=== PATIENT | female | born 1950 | race Caucasian/White ===

== ENCOUNTER 2016-08-27 11:25 | Observation (INO) ==
--- NOTE | 2016-08-27 11:56 | EKG Report ---
Please refer to the EKG image. Final interpretation is pending.
[2016-08-27 12:07] LABS: Basophils # 0.1 10*3/uL (0.0-0.2); Basophils % 0.7 % (0.0-0.8); Eosinophils # 0.2 10*3/uL (0.0-0.87); Eosinophils % 2.9 % (0.00-10.9); Hemoglobin 10.3 GM/DL (12.0-16.0); Immature Granulocytes % 0.3 %; Immature Granulocytes Absolute 0.02 #; Lymphocytes # 0.8 10*3/uL (1.4-4.0); Lymphocytes % 11.5 % (21.3-54.2); Mean Corpuscular HGB Conc 30.3 GM/DL (32-36); Mean Corpuscular Hemoglobin 23 PG (27-34); Mean Corpuscular Volume 75.9 FL (87-102); Mean Platelet Volume 9.6 FL (9.6-12.0); Monocytes # 0.7 10*3/uL (0.11-0.8); Monocytes % 9.4 % (1.7-12.7); Neutrophils # 5.2 10*3/uL (1.4-7.4); Neutrophils % 75.2 % (38.7-73.9); Platelet Count 186 T/CUMM (130-400); Red Blood Count 4.48 MC/CUMM (3.8-5.5); Red Cell Distribution Width 16.6 % (9.3-17.3); White Blood Count 6.9 T/CUMM (4-12)
[2016-08-27 12:19] LABS: PT Patient Result 10.8 SECS; Partial Thromboplastin Time 26.1 SECS (0-40)
[2016-08-27 12:27] LABS: Apearance,Urine CLEAR (Clear); Bilirubin,Urine Negative (Negative); Blood, Urine Negative (Negative); Glucose,Urine (UA) Negative (Negative); Ketones,Urine Negative (Negative); Mucus,Urine Occasional /LPF (Occasional); Nitrite,Urine Negative (Negative); Protein,Urine Negative; RBC,Urine <1 /HPF (0-4); Urine Color Straw (Yellow); Urine Specific Gravity 1.003 (1.001-1.035); Urine Urobilinogen < 2.0 EU/DL (0.2-1.0); WBC,Urine 1 /HPF (0-6)
[2016-08-27 12:31] LABS: Alanine Aminotransferase 19 U/L (13-56); Albumin 3.4 G/DL (3.4-5.0); Alkaline Phosphatase 88 U/L (45-117); Aspartate Amino Transferase 16 U/L (0-37); Bilirubin,Total < 0.39 MG/DL (0.2-1.0); Blood Urea Nitrogen 12 MG/DL (7-18); Calcium 8.7 MG/DL (8.5-10.1); Glucose 128 MG/DL (74-106); Osmolality,Calculated 274.8 MOS/KG (273-304); Sodium 137 MMOL/L (136-145); Total Protein 6.6 G/DL (6.4-8.3)
[2016-08-27 12:32] LABS: Troponin I Only 0.068 NG/ML (0.00-0.045)
--- NOTE | 2016-08-27 12:35 | CT Report ---
Referring physician: Hari Mcgowan Exam: CT brain without contrast Date: August 27, 2016 Comparison: CT brain without contrast June 07, 2016 Reason: Left arm weakness The patient is an Emergency Department patient on August 27, 2016. Technique: Axial images of the head were obtained without the use of contrast. Total DLP was 914.6 mGy*cm. Findings: There is mild generalized cerebral atrophy/volume loss and probable chronic microvascular ischemic change. This is similar to the previous study. No hydrocephalus or midline shift is present. There is no evidence of recent intracranial hemorrhage, abnormal mass effect or an acute infarction. No acute osseous process is seen. The mastoid air cells and visualized paranasal sinuses are clear. Impression: 1. No acute intracranial process is identified. 2. Chronic findings, similar to before. The CT exam was performed using one or more of the following dose reduction techniques: Automated exposure control and adjustment of the mA and/or kV according to patient size. PROCEDURE INTERPRETED AT [facility] DEPARTMENT OF RADIOLOGY Final Report Signed by: Dr. Ellen Nuno
--- NOTE | 2016-08-27 12:45 | XRay Report ---
Referring Physician: Hari Mcgowan Exam: XR chest 1V portable Date: August 27, 2016 at 12:08 PM Reason: Postop cardiac procedure Comparison: Chest one view portable June 07, 2016 Findings: The cardiac silhouette is again enlarged, and the patient is status post sternotomy. Calcified plaque is noted at the thoracic aorta. There may be venous congestion, and there is minimal atelectasis within the right lower lung zone. No pneumothorax or definite pleural fluid is identified. No acute osseous process is seen. Impression: 1. Cardiomegaly. 2. Possible venous congestion and minimal atelectasis within the right lower lung zone. PROCEDURE INTERPRETED AT [facility] DEPARTMENT OF RADIOLOGY Final Report Signed by: Dr. Ellen Nuno
--- NOTE | 2016-08-27 15:46 | Emergency Department Note ---
Juan M Barajas Brooke, am scribing for, and in the presence of, Hari Mcgowan Jr., MD 11:53. Roslyn Barajas Marvin Jr., MD, personally performed the services described in this documentation, ascribed by Holly Mcgowan in my presence, and it is both accurate and complete . Arrival - Arrival Chief Complaint: Non-Specific Stated Complaint: dizzy,legs numb, had miru valve ED Nursing Triage Note: Pt c/o weakness in shannon legs since yesterday, dizziness, heaviness in left arm, palpitations, and SOB this am. Pt had a procedure in [facility] on her Mitrial Valve 3 days ago. Mode of Arrival: Wheelchair Limitations: No Limitations Source: Patient, Old Records Reviewed, RN Notes Reviewed Time Seen by Provider: 08/27/16 11:44 - History of Present Illness HPI Narrative: Patient is a 66 year old female who presents to the ED with c/o shortness of breath, dizziness, numbness, and sudden back pain. She had a Mitral Valve Surgery, three days ago, where she says they "clamped" her valve back together. The surgery was performed in [place], [place]. Patient says she woke up this morning with bilateral leg numbness. She says her left arm feels "weak." With the dizziness, Patient says she felt like she was going to pass out. Patient says she feels short of breath and sudden back pain that also started today. She says she does not have a history of back pain. Patient denies any chest pain , fever, nausea, or vomiting but has had some chills. She has PMHx of CHF,H HTN , PVD, valvular heart disease, Afib, peripheral neuropathy, asthma, bronchitis, COPD, pneumonia, GERD, anemia, degenerative disk disease, and endometriosis. Patient is currently taking Eliquis. She does not smoke cigarettes, drink alcohol, or do any drugs. Allergies/Adverse Reactions: Allergies Allergy/AdvReac Type Severity Reaction Status Date / Time No Known Allergies Allergy Verified 05/25/16 08:12 Home Medications: Home Medications Medication Instructions Recorded Confirmed Type Albuterol/Ipratropium Neb [Duoneb] 3 ml RESP TX TID 12/21/14 08/27/16 History Zolpidem Tartrate [Ambien] 10 mg PO BEDTIME 12/21/14 08/27/16 History Acetaminophen Tab [Tylenol Tab] 1,000 mg PO BEDTIME 03/31/16 08/27/16 History Gabapentin 600 mg PO BEDTIME MDD @1300 daily 03/31/16 08/27/16 History Docusate Sodium Cap [Colace Cap] 300 mg PO BEDTIME 06/08/16 08/27/16 History Furosemide Tab [Lasix Tab] 40 mg PO BID #120 tablet 06/09/16 08/27/16 Rx Apixaban [Eliquis] 2.5 mg PO BID 08/27/16 08/27/16 History Ascorbic Acid Tab [Vitamin C Tab] 500 mg PO BID 08/27/16 08/27/16 History Fluticasone/Salmeterol 250-50 1 puff INH BID 08/27/16 08/27/16 History [Advair 250-50] Hydrocodone/Acetaminophen 0.5 each PO BID 08/27/16 08/27/16 History [Hydrocodon-Acetaminophen 5-325] Magnesium 250 mg PO BID 08/27/16 08/27/16 History Potassium Chloride 16 meq PO BID 08/27/16 08/27/16 History Spironolactone 50 mg PO DAILY 08/27/16 08/27/16 History dilTIAZem HCl [Diltiazem ER (24 240 mg PO DAILY 08/27/16 08/27/16 History hr)] Review of System - Review of System 12 point system: reviewed and no additional remarkable complaints except as stated - Review of System Constitutional: Present: chills. Absent: fever Respiratory: Present: other (SOB). Absent: respiratory distress Cardiovascular: Absent: chest pain Gastrointestinal: Absent: nausea, vomiting Musculoskeletal: Present: back pain Skin: Absent: rash Neurological: Present: weakness (left arm), numbness (bilateral legs), other ( dizziness) Medical,Surgical,& Family Hx - Medical History Cardio: History of: Cardiac Dysrhythmia (a fib), CHF (diastolic, she has had normal ef), Hypertension, PVD, Valvular Heart Disease (mitram valve had procedure at [facility]), Cardiovascular Problems No history of: Pacemaker Psychological: History of: Anxiety Disorders Neurology: History of: Peripheral Neuropathy No history of: Brain Aneurysm, Cerebral Hemorrhage, Cerebrovascular Accident , Cerebral Palsy, Dementia, Migraine, Multiple Sclerosis, Parkinson's Disease, Seizures, TIA, Vertigo, Neurologocal Cancer HEENT: History of: Eye Problem (blurry, out of focus pt states) No history of: Dental Problems Endocrine: No history of: Diabetes Mellitus (IDDM), Diabetes Mellitus (NIDDM) Respiratory: History of: Asthma, Bronchitis, COPD, Pneumonia, Respiratory Problems No history of: Obstructive Sleep Apnea, Pulmonary Embolism, Pulmonary Hypertension Gastrointestinal: History of: GERD Musculoskeletal: History of: Back/Neck Problems, Degenerative Disk Disease, Musculoskeletal Problems (peripheal neuropathy) No history of: Amputation Hematology: History of: Anemia No history of: Blood Transfusion Reaction Reproductive: History of: Abnormal Pap Smear, Endometriosis Other: No history of: Anesthesia Reactions, Anaphylaxis, Miscellaneous Medical Problems (Open heart surgery as a child) - Surgical History Cardiac Surgeries: Sugical HX of: Cardiac Catheterization (May 25), Cardiac Surgery ("3 holes in heart" repaired during childhood) Thoracic Surgeries: Surgical HX of;: Lobectomy Patient denies;: Organ Transplant Neurologic Surgeries: Patient denies: Brain Aneurysm, Cerebral Hemorrhage, Neurologic Surgery Abdominal Surgeries: Surgical HX of: Abdominal Surgery, Cholecystectomy, Hernia Repair Reproductive Surgeries: Surgical HX of;: Hysterectomy Patient denies;: Breast Surgery, Genitourinary Surgery, Gynecologic Surgery Orthopedic Surgeries: Patient denies;: Implanted Devices - Family History Family History: Reports;: Family Cancer (? neice), Family Hypertension (? mother ) - Social History Smoking Status: Former smoker Exam Physical Examination: General: Well-developed well-nourished, no apparent distress. Head: Normocephalic, atraumatic. Eyes: PERRLA, EOMI. Nose: No obvious acute deformities or discharge. Mouth: No obvious acute injury. Neck: Full range of motion without obvious pain. No midline tender to palpation. Lymphatic: no significant lymphadenopathy noted. Lungs: Clear to auscultation bilaterally, normal and equal air movement bilaterally, no obvious rales or wheezing. Heart: regular rate and rhythm, no obvious mummers. Abdomen: Soft nontender, nondistended, normal active bowel sounds. Skin: Fairly extensive bruising in her right femoral artery area. I.e. right Groin, no signs of infection, no severe swelling, looks like normal postop Musculoskeletal: No gross deformities. Neurological: No focal findings, cranial nerves II through XII grossly normal. Psychiatric: Anxious : Deferred Vital Signs: Vital Signs Temperature 98.3 F 08/27/16 11:33 Pulse Rate 112 H 08/27/16 15:23 Respiratory Rate 18 08/27/16 15:23 Blood Pressure 107/57 08/27/16 15:23 O2 Sat by Pulse Oximetry 99 08/27/16 15:23 Course Course Narrative: Differential diagnosis, dizziness, paresthesias in both legs, atrial fibrillation, ACS, - Reevaluation(s) Reevaluation #1: I discussed with the patient her atrial fibrillation with mild RVR. She says her heart rate usually runs about 115-120. I also told her better troponin being slightly elevated. She does not want to be admitted to the hospital so we will do a 3 hour repeat troponin and make determination from that. She also has a mild hyperglycemia. She is asymptomatic at this time. Feels much better and is not dizzy. This elevated troponin may be her baseline or may actually be coming down from the recent procedure she had on her mitral valve in [place]. Time: 13:07 Reevaluation #2: Troponin is gone up slightly. I called Dr. De Luna and he accepts admission for this patient. Time: 15:44 Results - Labs CBC & BMP: 08/27/16 11:59 08/27/16 11:59 Lab Results: I have reviewed the patients labs Labs: Laboratory Tests 08/27/16 08/27/16 08/27/16 11:59 11:59 11:59 WBC 6.9 RBC 4.48 Hgb 10.3 L Hct 34.0 L MCV 75.9 L MCH 23 L MCHC 30.3 L RDW 16.6 Plt Count 186 MPV 9.6 Neut % (Auto) 75.2 H Lymph % (Auto) 11.5 L Lamb % (Auto) 9.4 Eos % (Auto) 2.9 Baso % (Auto) 0.7 Neut # (Auto) 5.2 Lymph # (Auto) 0.8 L Lamb # (Auto) 0.7 Eos # (Auto) 0.2 Baso # (Auto) 0.1 Immature Gran % 0.3 Nucleated RBC % 0.0 Immature Gran # 0.02 Nucleated RBCs # 0.00 INR 1.0 PT Patient/Control Mix 10.8 Circ Anticoag PTT 26.1 D Sodium Potassium Chloride Carbon Dioxide Anion Gap BUN Creatinine GFR Calculation BUN/Creatinine Ratio Glucose Calculated Osmolality Calcium Total Bilirubin AST ALT Alkaline Phosphatase Troponin I Total Protein Albumin Globulin Albumin/Globulin Ratio Urine Color Straw Urine Appearance Clear Urine pH 5.0 Ur Specific [place] 1.003 Urine Protein Negative Urine Glucose (UA) Negative Urine Ketones Negative Urine Blood Negative Urine Nitrate Negative Urine Bilirubin Negative Urine Urobilinogen < 2.0 H Urine Leukocytes Negative Urine RBC <1 Urine WBC 1 Urine Mucus Occasional Ur Culture Indicated? Not indicated 08/27/16 11:59 WBC RBC Hgb Hct MCV MCH MCHC RDW Plt Count MPV Neut % (Auto) Lymph % (Auto) Lamb % (Auto) Eos % (Auto) Baso % (Auto) Neut # (Auto) Lymph # (Auto) Lamb # (Auto) Eos # (Auto) Baso # (Auto) Immature Gran % Nucleated RBC % Immature Gran # Nucleated RBCs # INR PT Patient/Control Mix Circ Anticoag PTT Sodium 137 Potassium 4.0 Chloride 101 Carbon Dioxide 29 Anion Gap 11.0 BUN 12 Creatinine 0.60 GFR Calculation 94 BUN/Creatinine Ratio 20.00 Glucose 128 H Calculated Osmolality 274.8 Calcium 8.7 Total Bilirubin < 0.39 AST 16 ALT 19 Alkaline Phosphatase 88 Troponin I 0.068 H Total Protein 6.6 Albumin 3.4 Globulin 3.2 Albumin/Globulin Ratio 1.0 L Urine Color Urine Appearance Urine pH Ur Specific [place] Urine Protein Urine Glucose (UA) Urine Ketones Urine Blood Urine Nitrate Urine Bilirubin Urine Urobilinogen Urine Leukocytes Urine RBC Urine WBC Urine Mucus Ur Culture Indicated? Laboratory Tests 08/27/16 14:50 Troponin I 0.081 H - EKG EKG results: interpreted by [facility] (Heart rate 108. There are complex QRS complexes without obvious acute ST changes. Tachycardia. No obvious P waves, interpretation atrial fibrillation with RVR, otherwise nonspecific EKG findings. ) - Diagnostic Findings Procedure: Chest x-ray: report reviewed by me, image reviewed by me (1. Cardiomegaly. 2. Possible venous congestion and minimal atelectasis with the right lower lung zone.), CT: report reviewed by me, image reviewed by me (CT head/brain wo con: 1. No acute intracranial process is identified. 2. Chronic findings, similar to before.) Disposition Clinical Impression: Non-ST elevation ME (NSTEMI), Dizziness, Atrial fibrillation, Postop mitral valve repair Case discussed with: patient Disposition: Still a Patient Time of Disposition: 15:45
[2016-08-27] MEDS ORDERED: DEXTROSE 5% NACL 0.45% 1,000 ML IV SCH (17:14)
[2016-08-27] MEDS ORDERED: ONDANSETRON 4 MG/2 ML VIAL IV PRN (17:14)
[2016-08-27] MEDS ORDERED: ACETAMINOPHEN 325 MG TABLET PO PRN (17:14)
[2016-08-28] MEDS: ALBUTEROL/IPRATROPIUM 3 ML NEB RESP TX SCH ×2 (07:17→12:28)
[2016-08-28] MEDS ORDERED: SODIUM CHLORIDE 0.45% 1,000 ML IV SCH (08:00)
--- NOTE | 2016-08-28 08:04 | Cardiology History & Physical ---
<Carolee Scott E - Last Filed: 08/28/16 08:02> Assessment and Plan - Time spent with patient Time spent with patient: Greater than 30 minutes (1) Mitral regurgitation Status: Chronic Assessment and plan: See plan of care listed below Current Visit: Yes (2) Atrial fibrillation Status: Chronic Assessment and plan: See plan of care listed below Current Visit: Yes Qualifiers: Atrial fibrillation type: paroxysmal Qualified Code(s): I48.0 - Paroxysmal atrial fibrillation (3) Dizziness Status: Acute Assessment and plan: See plan of care listed below Current Visit: Yes (4) Anemia Status: Acute Current Visit: No (5) Hypotension Status: Acute Assessment and plan: See plan of care listed below Current Visit: No (6) On anticoagulant therapy Status: Chronic Assessment and plan: See plan of care listed below Current Visit: No History of Present Illness Chief complaint: dizziness, weakness S/P mitral valve clip History of present illness: 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 Arce, 66WF, routinely followed by Dr. De Luna. History of CAD, moderate to severe mitral regurgitation, SVT/PAF and chronic anticoagulation. History of severe mitral regurgitation S/P mitral clip at [facility] in [place], [place] approximately [address] Cyr. She tolerated the procedure well and has been recuperating at home. Yesterday, she became dizzy and weak when standing up. She felt as if she should be evaluated in the emergency department and has been housed in our telemetry unit overnight. She is also been experiencing bilateral leg numbness and lower back pain but this is improved overnight. In general, she is feeling much better today and would like to go home at some point. On arrival, patient was hypotensive with a systolic blood pressure in the 90s. She was also noted to be in atrial fibrillation with rapid ventricular response on admission. (PAF for which she takes Eliqusi for stroke prevention ). Heart rate has improved since admission. There was no significant orthostasis noted by vital signs however she was symptomatic with these lower blood pressures. She felt as if she was overloaded as she had gained 3-5 pounds over the past several days. She felt full across the stomach. This too has improved. She is chronically anemic however labs are improved since past discharge. Cardiac biomarkers are minimally elevated but flat. Last cardiac catheterization revealed no obstructive coronary artery disease (see below). At this point, I am going to gently hydrate her, hold her blood pressure medication this morning as well as spironolactone and Lasix. Add labs for this morning including a proBNP. Hopefully, we can discharge her home this afternoon. Although the patient feels better I do think she is symptomatic from her lower blood pressures, higher heart rates and possible fluid volume loss rather than overload. She is agreeable for gentle hydration and will reevaluate early afternoon for possible discharge. We will get her an appointment to see Dr. De Luna next week. Last cardiac catheterization May 25, 2016 reveals the following: no significant obstructive coronary artery disease, 3-4+ MR. Past medical history includes the following: Multiple medical problems including COPD, CAD, moderate to severe MR prior to mitral clip, SVT/PAF and chronic anticoagulation. 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 This included "3 holes in her heart". She underwent SVT ablation many years ago and this has been generally well controlled. With her COPD, it is believed she is prone to tachycardia. ASSESSMENT/PLAN: 1. DIZZINESS, HYPOTENSION - suspect related to atrial fib with RVR. May be slightly volume depleted and we will initiate low rate replacement with plans for discharge this afternoon is possible. 2. S/P MITRAL CLIP FOR SEVERE MR - doing well. 3. ELEVATED TROPONIN - flat and not unexpected post mitral valve clip. This is NOT CT. 4. ATRIAL FIBRILLATION WITH RVR - resolved. Adding magnesium to labs. 5. ANEMIA - stable, actually improved. Home Medications Medication Instructions Recorded Confirmed Type Albuterol/Ipratropium Neb [Duoneb] 3 ml RESP TX TID 12/21/14 08/27/16 History Zolpidem Tartrate [Ambien] 10 mg PO BEDTIME 12/21/14 08/27/16 History Acetaminophen Tab [Tylenol Tab] 1,000 mg PO BEDTIME 03/31/16 08/27/16 History Gabapentin 600 mg PO BEDTIME MDD @1300 daily 03/31/16 08/27/16 History Docusate Sodium Cap [Colace Cap] 300 mg PO BEDTIME 06/08/16 08/27/16 History Apixaban [Eliquis] 2.5 mg PO BID 08/27/16 08/27/16 History Ascorbic Acid Tab [Vitamin C Tab] 500 mg PO BID 08/27/16 08/27/16 History Fluticasone/Salmeterol 250-50 1 puff INH BID 08/27/16 08/27/16 History [Advair 250-50] Hydrocodone/Acetaminophen 0.5 each PO BID 08/27/16 08/27/16 History [Hydrocodon-Acetaminophen 5-325] Magnesium 250 mg PO BID 08/27/16 08/27/16 History Potassium Chloride 16 meq PO BID 08/27/16 08/27/16 History Spironolactone 50 mg PO DAILY 08/27/16 08/27/16 History dilTIAZem HCl [Diltiazem ER (24 240 mg PO DAILY 08/27/16 08/27/16 History hr)] Furosemide Tab [Lasix Tab] 40 mg PO DAILY #30 tablet 08/28/16 Rx Allergies Allergy/AdvReac Type Severity Reaction Status Date / Time No Known Allergies Allergy Verified 05/25/16 08:12 Review of systems: REVIEW OF SYSTEMS: See my HPI - Constitutional Constitutional: Present: Fatigue. Absent: syncope, anorexia, night sweats - EENT Eyes: Absent: blurry vision, loss of vision, diplopia Ears: Absent: decreased hearing, ear pain, ear discharge - Cardiovascular Cardiovascular: Denies: chest pain with exertion, dyspnea on exertion, edema. Frequent palpitations. Absent: chest pain with deep breath, claudication, - Respiratory Respiratory: Denies JENKINS, cough. Absent: wheezing, hemoptysis, change in phlegm color - Gastrointestinal Gastrointestinal: Denies constipation. Absent: abdominal pain, hematemesis, hematochezia, melena, change in bowel habits, nausea - Genitourinary Genitourinary: Absent: difficulty urinating, dysuria, urinary hesitancy, flank pain - Musculoskeletal Musculoskeletal: Present: back pain which is now improved absent: joint swelling, muscle cramps, muscle weakness - Neurological Neurological: Present: Dizziness, lightheadedness primarily with position changes. Absent: hemiparesis - Psychiatric Psychiatric: Absent: anxiety, depression, difficulty concentrating - Endocrine Endocrine: Present: fatigue. Absent: cold intolerance, heat intolerance, polyuria, polyphagia, polydipsia - Hematologic/Lymphatic Hematologic/Lymphatic: Present: easy bruising. Absent: easy bleeding -Integumentary Integumentary: Ecchymosis right groin stable. Absent: lesions, rashes, skin breakdown Medical,Surgical,& Family Hx - Medical History Cardio: History of: Cardiac Dysrhythmia (a fib), CHF (diastolic, she has had normal ef), CAD, Hypertension, PVD, Valvular Heart Disease (mitram valve had procedure at [facility]), Cardiovascular Problems No history of: Pacemaker Psychological: History of: Anxiety Disorders Neurology: History of: Peripheral Neuropathy No history of: Brain Aneurysm, Cerebral Hemorrhage, Cerebrovascular Accident , Cerebral Palsy, Dementia, Migraine, Multiple Sclerosis, Parkinson's Disease, Seizures, TIA, Vertigo, Neurologocal Cancer HEENT: History of: Eye Problem (blurry, out of focus pt states) No history of: Dental Problems Endocrine: No history of: Diabetes Mellitus (IDDM), Diabetes Mellitus (NIDDM) Respiratory: History of: Asthma, Bronchitis, COPD, Pneumonia, Respiratory Problems No history of: Obstructive Sleep Apnea, Pulmonary Embolism, Pulmonary Hypertension Gastrointestinal: History of: GERD Musculoskeletal: History of: Back/Neck Problems, Degenerative Disk Disease, Musculoskeletal Problems (peripheal neuropathy) No history of: Amputation Hematology: History of: Anemia No history of: Blood Transfusion Reaction Reproductive: History of: Abnormal Pap Smear, Endometriosis Other: No history of: Anesthesia Reactions, Anaphylaxis, Miscellaneous Medical Problems (Open heart surgery as a child) - Surgical History Cardiac Surgeries: Sugical HX of: Cardiac Catheterization (May 25), Cardiac Surgery ("3 holes in heart" repaired during childhood) Thoracic Surgeries: Surgical HX of;: Lobectomy Patient denies;: Organ Transplant Neurologic Surgeries: Patient denies: Brain Aneurysm, Cerebral Hemorrhage, Neurologic Surgery Abdominal Surgeries: Surgical HX of: Abdominal Surgery, Cholecystectomy, Hernia Repair Reproductive Surgeries: Surgical HX of;: Hysterectomy Patient denies;: Breast Surgery, Genitourinary Surgery, Gynecologic Surgery Orthopedic Surgeries: Patient denies;: Implanted Devices - Family History Family History: Reports;: Family Cancer (? neice), Family Hypertension (? mother ) - Social History Smoking Status: Former smoker Frequency of Alcohol Use: None Type of Drug Use: None Marital Status: Lives With:: Spouse Functional capacity: independent ambulation Cardiology Physical Exam - Constitutional Vitals: Vital Signs Temp Pulse Resp BP Pulse Ox 98.1 F 70 20 94/48 98 08/28/16 04:00 08/28/16 04:00 08/28/16 04:00 08/28/16 04:00 08/28/16 04:00 Intake and Output 08/27/16 08/28/16 08/28/16 23:59 07:59 15:59 Intake Total 220 / 220 200 / 200 Output Total 425 / 425 300 / 300 Balance -205 / -205 -100 / -100 Intake: Oral 220 / 220 200 / 200 Output: Urine 425 / 425 300 / 300 Other: Voiding Method Toilet Toilet Weight 72.121 kg 70.76 kg Patient Weight 08/28/16 23:59 Weight 70.76 kg Exam: General: [Appears well with no apparent distress.] [Pleasant and cooperative. ] [Appears comfortable.] HEENT: [PERRL, normocephalic, atraumatic. Mucous membranes moist. No jaundice noted. Conjunctiva moist and clear, sclerae anicteric] Neck: No JVD/HJR, no thyromegaly or lymphadenopathy noted. No carotid bruit appreciated Cardiac: [Irregularly irregular rhythm, appropriate rate] [Ii/ HSM murmur heard best at 5 ICS left. PMI is nondisplaced. Lungs: [Clear to auscultation without accessory muscle use to assist the respiratory pattern.] Not using oxygen. Abdomen: Soft, bowel sounds normoactive. Nontender and nondistended. No abdominal bruit or thrill noted. No masses noted. Musculoskeletal: No fluid collection. Decreased range of motion is noted. Extremities: No clubbing, cyanosis noted. [ No edema noted.] Upper extremity pulses 2+. Lower extremity pulses 1+. Capillary refill less than 3 seconds. Skin: Right going reveals large ecchymotic area, no bruit. Incision healing well without dehiscence or drainage. No unusual lesions or rashes. No skin breakdown appreciated. Neuro: Awake, alert and oriented 3. Moves all extremities well without hemiparesis or paralysis. No essential tremor is appreciated. Result/EKG - Labs CBC & BMP: 08/27/16 11:59 08/27/16 11:59 Lab Results: I have reviewed the past 24 hour labs Labs: Laboratory Results - last 24 hr 08/27/16 08/27/16 08/27/16 17:28 20:13 22:27 Troponin I 0.080 H 0.075 H 0.081 H - Diagnostic Findings Procedure: Chest x-ray: report reviewed by me - EKG EKG results: interpreted by md EKG shows: sinus rhythm, atrial fibrillation (PAF) <Carlos Sánchez - Last Filed: 08/28/16 16:41> History of Present Illness Chief complaint: a cement the wrong number History of present illness: Patient personally interviewed and examined chart reviewed. Have discussed the case with Carolee Scott PRODUCTION LABORER. Agree with the assessment and evaluation. Ms. Arce is a 66 year old female who presented with increased heart rate and low blood pressure. She had episode atrial fibrillation with RVR that is resolved. Question some of this is from dehydration with her pressures being low. Her medications. She's had no other symptomatology cardiac-guy. She's had no recent change in her medications. We'll monitor her and does well discharge later today or in the morning. Cardiology Physical Exam - Constitutional Vitals: Vital Signs Temp Pulse Resp BP Pulse Ox 98.0 F 72 18 109/55 98 08/28/16 15:22 08/28/16 15:22 08/28/16 15:22 08/28/16 15:22 08/28/16 15:22 Intake and Output 08/28/16 08/28/16 08/28/16 07:59 15:59 23:59 Intake Total 200 / 200 840 / 840 Output Total 300 / 300 1400 / 1400 Balance -100 / -100 -560 / -560 Intake: Oral 200 / 200 840 / 840 Output: Urine 300 / 300 1400 / 1400 Other: Voiding Method Toilet Toilet # Bowel Movements 0 Weight 70.76 kg Patient Weight 08/28/16 23:59 Weight 70.76 kg Result/EKG - Labs CBC & BMP: 08/28/16 08:38 08/28/16 08:38 Labs: Laboratory Results - last 24 hr 08/27/16 08/27/16 08/27/16 17:28 20:13 22:27 WBC RBC Hgb Hct MCV MCH MCHC RDW Plt Count MPV Neut % (Auto) Lymph % (Auto) Haines % (Auto) Eos % (Auto) Baso % (Auto) Neut # (Auto) Lymph # (Auto) Haines # (Auto) Eos # (Auto) Baso # (Auto) Immature Gran % Nucleated RBC % Immature Gran # Nucleated RBCs # Sodium Potassium Chloride Carbon Dioxide Anion Gap BUN Creatinine GFR Calculation BUN/Creatinine Ratio Glucose Calculated Osmolality Calcium Magnesium Troponin I 0.080 H 0.075 H 0.081 H B-Natriuretic Peptide 08/28/16 08/28/16 08/28/16 08:38 08:38 08:38 WBC 6.7 RBC 4.79 Hgb 10.8 L Hct 36.9 MCV 77.0 L MCH 23 L MCHC 29.3 L RDW 17.1 Plt Count 214 MPV 9.7 Neut % (Auto) 68.4 Lymph % (Auto) 17.6 L Haines % (Auto) 9.5 Eos % (Auto) 3.6 Baso % (Auto) 0.6 Neut # (Auto) 4.6 Lymph # (Auto) 1.2 L Haines # (Auto) 0.6 Eos # (Auto) 0.2 Baso # (Auto) 0.0 Immature Gran % 0.3 Nucleated RBC % 0.0 Immature Gran # 0.02 Nucleated RBCs # 0.00 Sodium 137 Potassium 4.5 Chloride 101 Carbon Dioxide 29 Anion Gap 11.5 BUN 14 Creatinine 0.80 GFR Calculation 75 BUN/Creatinine Ratio 17.00 Glucose 179 H Calculated Osmolality 277.8 Calcium 8.5 Magnesium 2.1 Troponin I B-Natriuretic Peptide 103 H
[2016-08-28] MEDS: DILTIAZEM 30 MG TABLET PO SCH ×3 (08:53→16:50)
[2016-08-28] MEDS ORDERED: MAGNESIUM GLUCONATE 500 MG TABLET PO SCH (09:00)
[2016-08-28] MEDS ORDERED: FUROSEMIDE 20 MG TABLET PO SCH (09:00)
[2016-08-28] MEDS ORDERED: POTASSIUM CHLORIDE 8 MEQ CAPSULE PO SCH (09:00)
[2016-08-28] MEDS ORDERED: APIXABAN 2.5 MG TABLET PO SCH (09:00)
[2016-08-28] MEDS ORDERED: SPIRONOLACTONE 50 MG TABLET PO SCH (09:00)
[2016-08-28] MEDS ORDERED: ASCORBIC ACID 500 MG TABLET PO SCH (09:00)
[2016-08-28] MEDS ORDERED: FLUTICASONE/SALMETEROL 250-50 DISKUS 14 DOSE INH SCH (09:00)
[2016-08-28] MEDS ORDERED: DILTIAZEM CD 240 MG CAPSULE PO SCH (09:00)
[2016-08-28 09:18] LABS: Basophils % 0.6 % (0.0-0.8); Eosinophils # 0.2 10*3/uL (0.0-0.87); Eosinophils % 3.6 % (0.00-10.9); Hemoglobin 10.8 GM/DL (12.0-16.0); Immature Granulocytes % 0.3 %; Immature Granulocytes Absolute 0.02 #; Lymphocytes # 1.2 10*3/uL (1.4-4.0); Lymphocytes % 17.6 % (21.3-54.2); Mean Corpuscular HGB Conc 29.3 GM/DL (32-36); Mean Corpuscular Hemoglobin 23 PG (27-34); Mean Platelet Volume 9.7 FL (9.6-12.0); Monocytes # 0.6 10*3/uL (0.11-0.8); Monocytes % 9.5 % (1.7-12.7); Neutrophils # 4.6 10*3/uL (1.4-7.4); Neutrophils % 68.4 % (38.7-73.9); Platelet Count 214 T/CUMM (130-400); Red Blood Count 4.79 MC/CUMM (3.8-5.5); Red Cell Distribution Width 17.1 % (9.3-17.3); White Blood Count 6.7 T/CUMM (4-12)
[2016-08-28 09:19] LABS: Hematocrit 36.9 VOL% (35.7-47.0)
[2016-08-28 09:23] LABS: Calcium 8.5 MG/DL (8.5-10.1); Magnesium 2.1 MG/DL (1.8-2.4); Osmolality,Calculated 277.8 MOS/KG (273-304); Potassium 4.5 MMOL/L (3.5-5.1)
[2016-08-28 15:23] VITALS: BP 109/55
--- NOTE | 2016-08-28 16:23 | Discharge Summary ---
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 Arce, 66WF, routinely followed by Dr. De Luna. History of CAD, moderate to severe mitral regurgitation, SVT/PAF and chronic anticoagulation. History of severe mitral regurgitation S/P mitral clip at [facility] in [place], [place] approximately [address] Cyr. She tolerated the procedure well and has been recuperating at home. She presented to the ER of [facility] August 27, 2016 with complaints of dizziness, weakness and presyncope. She was found to be in atrial fib with RVR. This resolved without intervention. She was hypotensive as well and her Cardizem was held. She was not orthostatic but she seemed to be symptomatic. She was gentle hydrated for 8 hours and was feeling much better. She preferred discharge and she is being discharged home in stable conditions. She has follow-up appointment with Dr. De Luna soon and we will verify that her appointment is within the week. Dr. Sánchez reviewed and agreed patient stable for discharge. Will decrease dose of Lasix to 40mg orally daily as opposed to BID. Diagnosis - Discharge Diagnosis (1) Mitral regurgitation Status: Chronic (2) Atrial fibrillation Status: Chronic (3) Dizziness Status: Resolved (4) Anemia Status: Chronic (5) Hypotension Status: Resolved (6) On anticoagulant therapy Status: Chronic Specialty Discharge - Follow Up or Referrals Follow up with: Chito De Luna MD [Physician] - (1 week. Labs: BMP, Mg, CBC. EKG-WILL CALL WITH DATE AND TIME OF APPT. ) Discharge Plan - Discharge Data Disposition: Disch To Home/Self Care Condition at Discharge: Stable Discharge Diet: heart healthy Activity: resume usual activities as tolerated Hygiene: no restrictions Weight Bearing at Discharge: full weight bearing Driving: not until seen by doctor Contact your physician if you experience:: fever over 101, Difficulty voiding, Redness or swelling, Nausea/Vomiting, Shortness of breath, Bleeding, pain uncontrolled by pain medications - Discharge Medications New Furosemide Tab [Lasix Tab] 40 mg PO DAILY #30 tablet Continue Albuterol/Ipratropium Neb [Duoneb] 3 ml RESP TX TID Zolpidem Tartrate [Ambien] 10 mg PO BEDTIME Gabapentin 600 mg PO BEDTIME MDD @1300 daily Acetaminophen Tab [Tylenol Tab] 1,000 mg PO BEDTIME Docusate Sodium Cap [Colace Cap] 300 mg PO BEDTIME Hydrocodone/Acetaminophen [Hydrocodon-Acetaminophen 5-325] 0.5 each PO BID Spironolactone 50 mg PO DAILY Ascorbic Acid Tab [Vitamin C Tab] 500 mg PO BID Apixaban [Eliquis] 2.5 mg PO BID Potassium Chloride 16 meq PO BID Fluticasone/Salmeterol 250-50 [Advair 250-50] 1 puff INH BID dilTIAZem HCl [Diltiazem ER (24 hr)] 240 mg PO DAILY Magnesium 250 mg PO BID Discontinued Furosemide Tab [Lasix Tab] 40 mg PO BID #120 tablet - Follow Up or Referral Follow Up: Chito De Luna MD [Physician] - (1 week. Labs: BMP, Mg, CBC. EKG-WILL CALL WITH DATE AND TIME OF APPT. ) - Forms/Instructions Instructions: Atrial Fibrillation (DC) Exam - Constitutional Vitals: Period Temp Pulse Resp BP Sys/Tran Pulse Ox Last 24 Hr 97.3 F-99.8 F 19-111 16-21 94-109/48-70 92-100 Exam: General: [Appears well with no apparent distress.] [Pleasant and cooperative. ] [Appears comfortable.] HEENT: [PERRL, normocephalic, atraumatic. Mucous membranes moist. No jaundice noted. Conjunctiva moist and clear, sclerae anicteric] Neck: No JVD/HJR, no thyromegaly or lymphadenopathy noted. No carotid bruit appreciated Cardiac: [Regular rate and rhythm.] [Soft II/ HSM murmur heard at 5ICS left. ] Lungs: [Clear to auscultation without accessory muscle use to assist the respiratory pattern.] Not requiring oxygen Abdomen: Soft, bowel sounds normoactive. Nontender and nondistended. No abdominal bruit or thrill noted. No masses noted. Musculoskeletal: No fluid collection. Decreased range of motion is noted. Extremities: No clubbing, cyanosis noted. [ No edema noted.] Upper extremity pulses 2+. Lower extremity pulses 2+. Capillary refill less than 3 seconds. Skin: No unusual lesions or rashes. No skin breakdown appreciated. Neuro: Awake, alert and oriented 3. Moves all extremities well without hemiparesis or paralysis. No essential tremor is appreciated. Discharge Results Procedures and tests throughout hospitalization: Pending Orders 08/29/16 04:00 BMP w/ Mg [Basic Metabolic Panel w/Mg] IN AM CBC [Comp Blood Count Auto Diff] IN AM 08/30/16 04:00 BMP w/ Mg [Basic Metabolic Panel w/Mg] IN AM CBC [Comp Blood Count Auto Diff] IN AM 08/31/16 04:00 BMP w/ Mg [Basic Metabolic Panel w/Mg] IN AM CBC [Comp Blood Count Auto Diff] IN AM 09/01/16 04:00 BMP w/ Mg [Basic Metabolic Panel w/Mg] IN AM CBC [Comp Blood Count Auto Diff] IN AM 09/02/16 04:00 CBC [Comp Blood Count Auto Diff] IN AM 09/03/16 04:00 CBC [Comp Blood Count Auto Diff] IN AM Labs on day of discharge: Labs from last 24 hours 08/28/16 08/28/16 08/28/16 08:38 08:38 08:38 WBC 6.7 RBC 4.79 Hgb 10.8 L Hct 36.9 MCV 77.0 L MCH 23 L MCHC 29.3 L RDW 17.1 Plt Count 214 MPV 9.7 Neut % (Auto) 68.4 Lymph % (Auto) 17.6 L Green % (Auto) 9.5 Eos % (Auto) 3.6 Baso % (Auto) 0.6 Neut # (Auto) 4.6 Lymph # (Auto) 1.2 L Green # (Auto) 0.6 Eos # (Auto) 0.2 Baso # (Auto) 0.0 Immature Gran % 0.3 Nucleated RBC % 0.0 Immature Gran # 0.02 Nucleated RBCs # 0.00 Sodium 137 Potassium 4.5 Chloride 101 Carbon Dioxide 29 Anion Gap 11.5 BUN 14 Creatinine 0.80 GFR Calculation 75 BUN/Creatinine Ratio 17.00 Glucose 179 H Calculated Osmolality 277.8 Calcium 8.5 Magnesium 2.1 Troponin I B-Natriuretic Peptide 103 H 08/27/16 08/27/16 08/27/16 22:27 20:13 17:28 WBC RBC Hgb Hct MCV MCH MCHC RDW Plt Count MPV Neut % (Auto) Lymph % (Auto) Green % (Auto) Eos % (Auto) Baso % (Auto) Neut # (Auto) Lymph # (Auto) Green # (Auto) Eos # (Auto) Baso # (Auto) Immature Gran % Nucleated RBC % Immature Gran # Nucleated RBCs # Sodium Potassium Chloride Carbon Dioxide Anion Gap BUN Creatinine GFR Calculation BUN/Creatinine Ratio Glucose Calculated Osmolality Calcium Magnesium Troponin I 0.081 H 0.075 H 0.080 H B-Natriuretic Peptide - Imaging and Cardiology Cardiology Procedure: report reviewed by me Procedure: Chest x-ray: report reviewed by me DS: Provider Date of admission: 08/27/16 15:46 Primary care physician: . No PCP Attending physician on admission: Chito De Luna MD Consults: 08/27/16 17:16 Consult to Pharmacy [CONS] Routine Reason for Pharmacy Consult: Adjust Meds Renal Funct Discharging clinician: Carolee Scott NP Expected date of discharge: 08/28/16 <Carlos Sánchez - Last Filed: 08/28/16 16:58> Hospital Course - Hospital Course Hospital Course: I interview the patient again this afternoon and reviewed the chart. The patient and well today after some hydration. I agree issues primaries maximize benefit and could be discharged. She has follow-up already scheduled with Dr. De Luna which she will keep.
[2016-08-28] MEDS ORDERED: ZALEPLON 5 MG CAPSULE PO SCH (21:00)
[2016-08-28] MEDS ORDERED: DOCUSATE SODIUM 100 MG CAPSULE PO SCH (21:00)
[2016-08-28] MEDS ORDERED: ACETAMINOPHEN 500 MG TABLET PO SCH (21:00)
[2016-08-28] MEDS ORDERED: GABAPENTIN 300 MG CAPSULE PO SCH (21:00)
--- NOTE | 2016-10-30 10:05 | EKG Report ---
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
== END 2016-08-28 17:27 | disposition home or self-care (01) ==
LOC: N.EDINP 11:25 → N.ED 11:25 → N.TELES 16:31
PROVIDERS: ADMIT Internal Medicine Cardiovascular Disease; ATTEND Internal Medicine Cardiovascular Disease

== ENCOUNTER 2016-12-15 09:58 | Inpatient (IN) ==
[2016-12-15] MEDS ORDERED: DILTIAZEM 50 MG/10 ML VIAL IV STA ×2 (10:26→12:47)
[2016-12-15] MEDS ORDERED: SODIUM CHLORIDE 0.9% 200 ML IV STA (10:26)
[2016-12-15] MEDS ORDERED: DILTIAZEM 50 MG/10 ML VIAL IV ONE (10:31)
[2016-12-15 10:33] LABS: Basophils # 0.1 10*3/uL (0.0-0.2); Basophils % 0.7 % (0.0-0.8); Eosinophils # 0.1 10*3/uL (0.0-0.87); Hemoglobin 13.5 GM/DL (12.0-16.0); Immature Granulocytes % 0.4 %; Immature Granulocytes Absolute 0.05 #; Lymphocytes # 1.5 10*3/uL (1.4-4.0); Lymphocytes % 13.1 % (21.3-54.2); Mean Corpuscular HGB Conc 32.1 GM/DL (32-36); Mean Corpuscular Hemoglobin 23 PG (27-34); Mean Corpuscular Volume 71.3 FL (87-102); Mean Platelet Volume 9.4 FL (9.6-12.0); Monocytes # 1.3 10*3/uL (0.11-0.8); Monocytes % 11.7 % (1.7-12.7); Neutrophils # 8.3 10*3/uL (1.4-7.4); Neutrophils % 73.1 % (38.7-73.9); Platelet Count 351 T/CUMM (130-400); Red Blood Count 5.89 MC/CUMM (3.8-5.5); Red Cell Distribution Width 19.9 % (9.3-17.3); White Blood Count 11.3 T/CUMM (4-12)
--- NOTE | 2016-12-15 10:40 | Emergency Department Note ---
I, Reena Wynne, am scribing for, and in the presence of, Maryjane Ordoñez DO 10: 32. ITiago Debra, DO, personally performed the services described in this documentation, ascribed by Reena Wynne in my presence, and it is both accurate and complete . Arrival - Arrival Chief Complaint: Dizziness Stated Complaint: sick at stomach/thinks dehydrated ED Nursing Triage Note: Patient to triage with c/o having N/D and [facility] off and on for about a week now. She was seen here a week ago for the samething. She states they have changed a lot of her medications and she just don't feel goog. Mode of Arrival: Ambulatory Limitations: No Limitations Source: Patient - History of Present Illness HPI Narrative: This is a 66 y/o white female, who presents to the ED for further evaluation for possible dehydration which has been going on for the past week. She reports her medications were changed 3 days ago. She denies any SOB, CP, or abdominal pain but notes a headache and dizziness. Pt has no other complaints/pain in the ED at this time. Pt has a PMHx of HTN, PVD, Mitram valve procedure, asthma, COPD , GERD, back/neck problems, A-fib, anxiety, CHF, CAD, degenerative disk disease , peripheral neuropathy, anemia, and endometriosis. Pt has had a cardiac cath, cardiac surgery as a child, lobectomy, hysterectomy, hernia repair, abdominal surgery, and cholecystectomy. Pt has a family medical Hx of cancer and HTN. Pt is a former smoker. Onset (ago): week(s) (Started 1 week ago) Consistency: constant Severity: moderate Allergies/Adverse Reactions: Allergies Allergy/AdvReac Type Severity Reaction Status Date / Time No Known Allergies Allergy Verified 12/15/16 10:07 Home Medications: Home Medications Medication Instructions Recorded Confirmed Type Albuterol/Ipratropium Neb [Duoneb] 3 ml RESP TX TID 12/21/14 11/30/16 History Zolpidem Tartrate [Ambien] 10 mg PO BEDTIME 12/21/14 11/30/16 History Acetaminophen Tab [Tylenol Tab] 1,000 mg PO BEDTIME 03/31/16 11/30/16 History Gabapentin 600 mg PO BEDTIME MDD @1300 daily 03/31/16 11/30/16 History Docusate Sodium Cap [Colace Cap] 300 mg PO BEDTIME 06/08/16 11/30/16 History Apixaban [Eliquis] 2.5 mg PO BID 08/27/16 11/30/16 History Ascorbic Acid Tab [Vitamin C Tab] 500 mg PO BID 08/27/16 11/30/16 History Fluticasone/Salmeterol 250-50 1 puff INH BID 08/27/16 11/30/16 History [Advair 250-50] Hydrocodone/Acetaminophen 0.5 each PO BID 08/27/16 11/30/16 History [Hydrocodon-Acetaminophen 5-325] Magnesium 250 mg PO BID 08/27/16 11/30/16 History Potassium Chloride 16 meq PO BID 08/27/16 11/30/16 History Spironolactone 50 mg PO DAILY 08/27/16 11/30/16 History dilTIAZem HCl [Diltiazem ER (24 240 mg PO DAILY 08/27/16 11/30/16 History hr)] Furosemide Tab [Lasix Tab] 40 mg PO DAILY #30 tablet 08/28/16 11/30/16 Rx Furosemide Tab [Lasix Tab] 40 mg PO BID DIURETIC #14 tablet 11/30/16 Rx Review of System - Review of System 12 point system: reviewed and no additional remarkable complaints except as stated - Review of System Review of Systems: Medication changes over the past 3 days. Possible dehydration. Cardiovascular: Absent: chest pain, dyspnea on exertion Gastrointestinal: Absent: abdominal pain Neurological: Present: headache, vertigo (Dizziness) Medical,Surgical,& Family Hx - Medical History Cardio: History of: Cardiac Dysrhythmia (a fib), CHF (diastolic, she has had normal ef), CAD, Hypertension, PVD, Valvular Heart Disease (mitram valve had procedure at [facility]), Cardiovascular Problems No history of: Pacemaker Psychological: History of: Anxiety Disorders Neurology: History of: Peripheral Neuropathy No history of: Brain Aneurysm, Cerebral Hemorrhage, Cerebrovascular Accident , Cerebral Palsy, Dementia, Migraine, Multiple Sclerosis, Parkinson's Disease, Seizures, TIA, Vertigo, Neurologocal Cancer HEENT: History of: Eye Problem (blurry, out of focus pt states) No history of: Dental Problems Endocrine: No history of: Diabetes Mellitus (IDDM), Diabetes Mellitus (NIDDM) Respiratory: History of: Asthma, Bronchitis, COPD, Pneumonia, Respiratory Problems No history of: Obstructive Sleep Apnea, Pulmonary Embolism, Pulmonary Hypertension Gastrointestinal: History of: GERD Musculoskeletal: History of: Back/Neck Problems, Degenerative Disk Disease, Musculoskeletal Problems (peripheal neuropathy) No history of: Amputation Hematology: History of: Anemia No history of: Blood Transfusion Reaction Reproductive: History of: Abnormal Pap Smear, Endometriosis Other: No history of: Anesthesia Reactions, Anaphylaxis Comment Only: Miscellaneous Medical Problems (Open heart surgery as a child) - Surgical History Cardiac Surgeries: Sugical HX of: Cardiac Catheterization (May 25), Cardiac Surgery ("3 holes in heart" repaired during childhood) Thoracic Surgeries: Surgical HX of;: Lobectomy Patient denies;: Organ Transplant Neurologic Surgeries: Patient denies: Brain Aneurysm, Cerebral Hemorrhage, Neurologic Surgery Abdominal Surgeries: Surgical HX of: Abdominal Surgery, Cholecystectomy, Hernia Repair Reproductive Surgeries: Surgical HX of;: Hysterectomy Patient denies;: Breast Surgery, Genitourinary Surgery, Gynecologic Surgery Orthopedic Surgeries: Patient denies;: Implanted Devices - Family History Family History: Reports;: Family Cancer (? neice), Family Hypertension (? mother ) - Social History Smoking Status: Former smoker Frequency of Alcohol Use: None Type of Drug Use: None Exam Vital Signs: Vital Signs Temperature 98.3 F 12/15/16 10:25 Pulse Rate 863 H 12/15/16 10:45 Respiratory Rate 19 12/15/16 10:45 Blood Pressure 110/51 12/15/16 10:45 O2 Sat by Pulse Oximetry 95 12/15/16 10:02 - General General appearance: alert, in no apparent distress, obese (Mildly obese) - Head Head exam: Present: atraumatic, normocephalic, normal inspection - Eye Eye exam: Present: normal appearance, PERRL, EOMI. Absent: nystagmus - ENT ENT exam: Present: normal exam, mucous membranes moist - Neck Neck exam: Present: normal inspection, full ROM, trachea midline. Absent: tenderness - Chest Chest inspection: Present: normal inspection, symmetric chest wall rise. Absent : tenderness - Respiratory Respiratory exam: Present: normal lung sounds bilaterally. Absent: prolonged expiratory phase, respiratory distress - Cardiovascular Cardiovascular exam: Present: tachycardia, irregular rhythm, normal heart sounds. Absent: murmur, rubs, gallop, clicks, JVD - Abdominal Exam Abdominal exam: Present: soft, normal bowel sounds. Absent: distention, tenderness, guarding, rebound, rigidity - Rectal Exam Rectal exam: Present: deferred - Extremities Exam Extremities exam: Present: normal inspection, full ROM, normal capillary refill. Absent: tenderness, pedal edema, joint swelling, calf tenderness - Back Exam Back exam: Present: normal inspection, full ROM. Absent: tenderness, muscle spasm, rashes - Neurological Exam Neurological exam: Present: alert, oriented X3, CN II-XII intact. Absent: motor sensory deficit - Psychiatric Psychiatric exam: Present: normal affect, normal mood. Absent: depressed, agitated, anxious, flat affect, manic - Skin Skin exam: Present: warm, dry, intact, normal color. Absent: rash, cyanosis, diaphoresis, erythema, pallor, mottled Results - Labs CBC & BMP: 12/15/16 10:26 12/15/16 10:26 Lab Results: I have reviewed the patients labs Labs: Laboratory Tests 12/15/16 12/15/16 12/15/16 10:26 10:26 10:26 WBC 11.3 RBC 5.89 H Hgb 13.5 Hct 42.0 MCV 71.3 L MCH 23 L MCHC 32.1 RDW 19.9 H Plt Count 351 MPV 9.4 L Neut % (Auto) 73.1 Lymph % (Auto) 13.[address] [place] % (Auto) 11.7 Eos % (Auto) 1.0 Baso % (Auto) 0.7 Neut # (Auto) 8.3 H Lymph # (Auto) 1.5 [place] # (Auto) 1.3 H Eos # (Auto) 0.1 Baso # (Auto) 0.1 Immature Gran % 0.4 Nucleated RBC % 0.0 Immature Gran # 0.05 Nucleated RBCs # 0.00 Immature Plt Fraction 0.0 INR 1.1 PT Patient/Control Mix 11.4 Circ Anticoag PTT 28.7 Sodium 126 L Potassium 3.3 L Chloride 83 L Carbon Dioxide 32 Anion Gap 14.3 BUN 23 H Creatinine 1.00 GFR Calculation 58 BUN/Creatinine Ratio 23.00 H Glucose 130 H Calculated Osmolality 258.4 L Calcium 10.2 H Total Bilirubin 0.50 AST 37 ALT 27 Alkaline Phosphatase 112 Total Creatine Kinase 154 CK-MB (CK-2) 2.5 Troponin I < 0.015 B-Natriuretic Peptide Total Protein 8.0 Albumin 4.4 Globulin 3.6 H Albumin/Globulin Ratio 1.2 12/15/16 10:26 WBC RBC Hgb Hct MCV MCH MCHC RDW Plt Count MPV Neut % (Auto) Lymph % (Auto) [place] % (Auto) Eos % (Auto) Baso % (Auto) Neut # (Auto) Lymph # (Auto) [place] # (Auto) Eos # (Auto) Baso # (Auto) Immature Gran % Nucleated RBC % Immature Gran # Nucleated RBCs # Immature Plt Fraction INR PT Patient/Control Mix Circ Anticoag PTT Sodium Potassium Chloride Carbon Dioxide Anion Gap BUN Creatinine GFR Calculation BUN/Creatinine Ratio Glucose Calculated Osmolality Calcium Total Bilirubin AST ALT Alkaline Phosphatase Total Creatine Kinase CK-MB (CK-2) Troponin I B-Natriuretic Peptide 76 Total Protein Albumin Globulin Albumin/Globulin Ratio - Diagnostic Findings Procedure: Chest x-ray: report reviewed by me (No definite acute process. Cardiomegaly without overt CHF)
--- NOTE | 2016-12-15 10:50 | XRay Report ---
History: Abnormal breath sounds Date: 12/15/2016 Study: Chest x-ray AP portable Comparison exam: November 30, 2016 There is continued cardiomegaly. The midsternal contours are unchanged in this patient status post prior median sternotomy. The pulmonary vasculature is upper normal. There is no sarbjit pneumonia. The lungs are grossly clear for shallow breath. There is no gross pleural effusion. There is osteopenia and mild thoracic spondylosis. Impression: No definite acute process. Cardiomegaly without overt CHF PROCEDURE INTERPRETED AT [facility] DEPARTMENT OF RADIOLOGY Final Report Signed by: Dr. Venus Tavares
[2016-12-15 10:52] LABS: INR 1.1; PT Patient Result 11.4 SECS; Partial Thromboplastin Time 28.7 SECS (0-40)
[2016-12-15 11:04] LABS: Alanine Aminotransferase 27 U/L (13-56); Albumin 4.4 G/DL (3.4-5.0); Alkaline Phosphatase 112 U/L (45-117); Aspartate Amino Transferase 37 U/L (0-37); Blood Urea Nitrogen 23 MG/DL (7-18); Calcium 10.2 MG/DL (8.5-10.1); Glucose 130 MG/DL (74-106); Osmolality,Calculated 258.4 MOS/KG (273-304); Potassium 3.3 MMOL/L (3.5-5.1); Sodium 126 MMOL/L (136-145); Troponin I Only < 0.015 NG/ML (0.00-0.045)
[2016-12-15] MEDS ORDERED: POTASSIUM CHLORIDE 20 MEQ TABLET PO STA (11:11)
--- NOTE | 2016-12-15 11:11 | EKG Report ---
Stationary ECG Study [facility] ER Test Date: 12/15/2016 10:06:36 AM Pat Name: ANA ORTIZ Department: Room: Gender: F [employer]man: Ayaka Flores : 1950 Requested by: Maryjane Ordoñez Order Number: [id number] Reading MD: VLADIMIR WILHELM Intervals [place] Rate: 146 P: 999 ID: [id number] QRS: 99 QRSD: 145 T: -12 QT: 363 QTc: 447 Interpretive Statements ATRIAL FIBRILLATION WITH RAPID VENTRICULAR RESPONSE RIGHT BUNDLE BRANCH BLOCK POSSIBLE SUBENDOCARDIAL INJURY Electronically Signed On 12-15-16 17:29:58 CDT by VLADIMIR WILHELM [email or web address]
[2016-12-15] MEDS ORDERED: POTASSIUM CHLORIDE 20 MEQ TABLET PO ONE (11:19)
[2016-12-15] MEDS ORDERED: DILTIAZEM 30 MG TABLET PO STA ×2 (13:13→13:18)
--- NOTE | 2016-12-15 13:18 | Hospitalist History & Physical ---
Assessment and Plan (1) Atrial fibrillation Status: Chronic Assessment and plan: Admit to telemetry. Consult cards. Pt. given IV Cardizem in ED. We will start po medication. Continue eliquis. Current Visit: No Qualifiers: Atrial fibrillation type: chronic Qualified Code(s): I48.2 - Chronic atrial fibrillation (2) COPD (chronic obstructive pulmonary disease) with emphysema Status: Chronic Assessment and plan: Restart home meds. Current Visit: No (3) Congestive heart failure Status: Acute Assessment and plan: BNP 73. CXR showed 'cardiomegaly with overt CHF'. Echo performed in May showed EF of 55%. Current Visit: No (4) Dizziness Status: Resolved Current Visit: No History of Present Illness Chief complaint: heart racing, nausea and vomiting History of present illness: Ms. Arce is a 66 year old white female with a hx of gerd, htn, afib, CHF, COPD , CAD, and recent mitral valve procedure that presented to the ED for further evaluation of nausea, dizziness, diarrhea, and heart racing. Pt. is a poor historian. Pt. states that she has been nauseous with daily diarrhea for about a week. Pt. also states that she thinks she is dehydrated. Additionally, patient reports that her heart has been racing. Pt denies shortness of breath, chest pain, andabdominal pain. She states that she is under the care of Dr. Bagley and Dr. De Luna. Pt. reports that there was a change in one of her medications (Diltiazem) and that she was supposed to have some of the medication called in but that it never was. On assessment in ED, pt was noted to be in afib with RVR with a low K of 3.3 and low sodium at 126. CXR negative. Pt. will be admitted to the hospitalist service for further eval and treatment. Home Medications Medication Instructions Recorded Confirmed Type Zolpidem Tartrate [Ambien] 10 mg PO BEDTIME 12/21/14 12/15/16 History Docusate Sodium Cap [Colace Cap] 100 mg PO BID PRN 06/08/16 12/15/16 History Apixaban [Eliquis] 2.5 mg PO BID 08/27/16 12/15/16 History Ascorbic Acid Tab [Vitamin C Tab] 500 mg PO 1400 08/27/16 12/15/16 History Spironolactone 50 mg PO QAM 08/27/16 12/15/16 History Acetaminophen [Acetaminophen ER 1,300 mg PO BEDTIME 12/15/16 12/15/16 History Tab] Albuterol Neb [Proventil Neb] 2.5 mg RESP TX Q6H PRN 12/15/16 12/15/16 History Ferrous Sulfate Tab [Feosol 325 mg PO QAM 12/15/16 12/15/16 History Original Tab] Furosemide Tab [Lasix Tab] 40 mg PO QAM 12/15/16 12/15/16 History Ipratropium/Albuterol Inhaler 1 puff INH BID PRN 12/15/16 12/15/16 History [Combivent Respimat Inhaler] Magnesium Oxide 500 mg PO 1400 12/15/16 12/15/16 History Montelukast Tab [Singulair Tab] 10 mg PO BEDTIME 12/15/16 12/15/16 History Pantoprazole Sodium 40 mg PO DAILY 12/15/16 12/15/16 History Potassium Chloride 20 meq PO QAM 12/15/16 12/15/16 History Umeclidinium Brm/Vilanterol Tr 1 puff INH QAM 12/15/16 12/15/16 History [Anoro Ellipta] dilTIAZem HCl [Tiazac] 120 mg PO DAILY 12/15/16 12/15/16 History Allergies Allergy/AdvReac Type Severity Reaction Status Date / Time No Known Allergies Allergy Verified 12/15/16 10:07 Medical,Surgical,& Family Hx - Medical History Cardio: History of: Cardiac Dysrhythmia (a fib), CHF (diastolic, she has had normal ef), CAD, Hypertension, PVD, Valvular Heart Disease (mitram valve had procedure at [facility]), Cardiovascular Problems No history of: Pacemaker Psychological: History of: Anxiety Disorders Neurology: History of: Peripheral Neuropathy No history of: Brain Aneurysm, Cerebral Hemorrhage, Cerebrovascular Accident , Cerebral Palsy, Dementia, Migraine, Multiple Sclerosis, Parkinson's Disease, Seizures, TIA, Vertigo, Neurologocal Cancer HEENT: History of: Eye Problem (blurry, out of focus pt states) No history of: Dental Problems Endocrine: No history of: Diabetes Mellitus (IDDM), Diabetes Mellitus (NIDDM) Respiratory: History of: Asthma, Bronchitis, COPD, Pneumonia, Respiratory Problems No history of: Obstructive Sleep Apnea, Pulmonary Embolism, Pulmonary Hypertension Gastrointestinal: History of: GERD Musculoskeletal: History of: Back/Neck Problems, Degenerative Disk Disease, Musculoskeletal Problems (peripheal neuropathy) No history of: Amputation Hematology: History of: Anemia No history of: Blood Transfusion Reaction Reproductive: History of: Abnormal Pap Smear, Endometriosis Other: No history of: Anesthesia Reactions, Anaphylaxis Comment Only: Miscellaneous Medical Problems (Open heart surgery as a child) - Surgical History Cardiac Surgeries: Sugical HX of: Cardiac Catheterization (May 25), Cardiac Surgery ("3 holes in heart" repaired during childhood) Thoracic Surgeries: Surgical HX of;: Lobectomy Patient denies;: Organ Transplant Neurologic Surgeries: Patient denies: Brain Aneurysm, Cerebral Hemorrhage, Neurologic Surgery Abdominal Surgeries: Surgical HX of: Abdominal Surgery, Cholecystectomy, Hernia Repair Reproductive Surgeries: Surgical HX of;: Hysterectomy Patient denies;: Breast Surgery, Genitourinary Surgery, Gynecologic Surgery Orthopedic Surgeries: Patient denies;: Implanted Devices - Family History Family History: Reports;: Family Cancer (? neice), Family Hypertension (? mother ) - Social History Smoking Status: Former smoker Frequency of Alcohol Use: None Type of Drug Use: None Marital Status: Single Lives With:: Alone Functional capacity: independent ambulation - Constitutional Constitutional: Present: night sweats. Absent: chills, fever(s) - EENT Ears: Absent: decreased hearing Nose, mouth and throat: Absent: headache(s) - Cardiovascular Cardiovascular: Present: dyspnea on exertion, edema - Respiratory Respiratory: Present: cough - Gastrointestinal Gastrointestinal: Present: diarrhea, nausea. Absent: abdominal pain - Genitourinary Genitourinary: Absent: difficulty urinating - Neurological Neurological: Present: dizziness. Absent: numbness - Psychiatric Psychiatric: Present: anxiety Exam - Constitutional Vitals: Period Temp Pulse Resp BP Sys/Tran Pulse Ox Last 24 Hr 98.3 F-98.3 F 80-863 16-20 106-126/51-83 93-95 General appearance: normal weight, no acute distress - Head Head exam: Present: normal inspection, normocephalic - Eye Eye exam: Present: EOMI. Absent: scleral icterus Pupils: Present: NIKITA - Respiratory Respiratory exam: Present: clear to auscultation bilaterally. Absent: wheezes - Cardiovascular Cardiovascular exam: Present: irregular rhythm (afib) - GI/Abdominal GI/Abdominal exam: Present: normal bowel sounds, soft. Absent: tenderness - Neurological Exam Neurological exam: Present: alert, oriented X3 - Psychiatric Psychiatric exam: Present: normal affect, normal mood - Skin Skin exam: Present: normal color, warm, dry Results - Labs CBC & BMP: 12/15/16 10:26 12/15/16 10:26 Lab Results: I have reviewed the past 24 hour labs
[2016-12-15] MEDS ORDERED: DILTIAZEM INJ 100 MG in SODIUM CHLORIDE 0.9% 100 ML IV SCH (13:30)
[2016-12-15] MEDS ORDERED: DOCUSATE SODIUM 100 MG CAPSULE PO PRN (15:07)
[2016-12-15] MEDS ORDERED: POTASSIUM CHLORIDE 20 MEQ TABLET PO PRN (15:07)
[2016-12-15] MEDS ORDERED: ALBUTEROL 2.5 MG/3 ML NEB RESP TX PRN (15:07)
[2016-12-15] MEDS: DILTIAZEM 30 MG TABLET PO SCH ×2 (15:09→17:20)
[2016-12-15] MEDS: SODIUM CHLORIDE 0.9% 1,000 ML IV SCH (15:44)
--- NOTE | 2016-12-15 16:56 | Cardiology Consult Note ---
Assessment and Plan - Time spent with patient Time spent with patient: Greater than 30 minutes (1) Chest pain Status: Acute Assessment and plan: Cycle cardiac biomarkers. May be related to the atrial fibrillation she was experiencing earlier.. Heart catheterization May 2016 revealed no obstructive disease. Continue Eliquis Current Visit: Yes (2) S/P mitral valve clip implantation Status: Chronic Assessment and plan: Continue current plan of care Current Visit: Yes (3) Atrial fibrillation with controlled ventricular response Status: Acute Assessment and plan: Rapid ventricular response is now controlled. Diltiazem has been held due to hypotension. Continue with Eliquis for stroke prevention. Replace potassium. Current Visit: No (4) On anticoagulant therapy Status: Chronic Assessment and plan: Eliquis for stroke prevention. Current Visit: No (5) Dyspnea Status: Acute Assessment and plan: Also improved once rate of atrial fibrillation was controlled. Chest x-ray is benign. Current Visit: No History of Present Illness - Data of Consult Patient: known to practice within the last 3 years Consult date: 12/15/16 Requesting Physician: Melissa Lang Primary care physician: Quintin Leonard - Consult Narrative Reason for consult: Palpitations, shortness of breath History of present illness: CUSTOMER RELATIONS SPECIALIST: DR. DE LUNA Ms. Arce, 66WF, less in cardiology clinic December 11, 2016. History of S/P severe mitral regurgitation requiring mitral clip at [facility] in August 2016. History of SVT/PAF and chronic anticoagulation (Eliquis) for stroke prevention. History of congenital heart disease and states she had "3 holes in her heart" when she was a child that were surgically repaired. Also reports she had SVT ablation many years ago. Last cardiac catheterization May 25, 2016 reveals the following: no significant obstructive coronary artery disease, 3-4+ Presented to the ED of [facility] after having complaints of heart racing, dizziness and shortness of breath. Patient had recently been been experiencing lower extremity swelling when she saw Dr. De Luna in clinic. He added Zaroxolyn 5 mg once daily for 5 days, stopped her Diltiazem ER and initiated Toprol-XL 50 mg twice daily. However, patient believes that the prescription for Toprol was never called in therefore, she has been holding her Diltiazem altogether because she was experiencing some hypotension. This morning, she felt as if her heart was beating hard and racing. She felt as if she was in atrial fibrillation and felt as if she should be evaluated in the emergency department. She acknowledges shortness of breath worse over the past 3 weeks but improved over the past 2-3 days. Upon arrival to the ED, found to be in atrial fibrillation with rapid ventricular response, heart rate 146. She is also hypokalemic with potassium of 3.3, sodium 126. She was given IV Diltiazem and her heart rate improved, systolic blood pressure 100s -110. This is since been discontinued. Patient also has complaints of pain in the left shoulder area which is not reproducible with position or palpation. This is been intermittent for the past 3 weeks with no obvious aggravating nor any alleviating factors. Today, she felt a discomfort in the left chest area when she was having the faster heart rates. She cannot further describe the chest discomfort. She feels as if she may be dehydrated. 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 Troponin is negative, EKG does not reveal SD. Upon examination, patient reports she is feeling better in general. She is not feeling her heart racing or fluttering in her breathing has improved. Will continue to follow her cardiac biomarkers. Patient does not appear to be in congestive heart failure. As her blood pressure will allow, will continue with yasmeen blocking agents for rate control. Orthostatic vital signs. Patient may actually benefit from gentle hydration but I will defer to Dr. Gonsalez for recommendations and treatment. ASSESSMENT/PLAN: 1. ATRIAL FIBRILLATION WITH RAPID VENTRICULAR RESPONSE - rate has now been controlled with initiation of IV Diltiazem. Due to hypotension this was discontinued and rate has remained better controlled. May be somewhat volume depleted and may respond to fluid resuscitation. 2. SOB - may be related to her rapid ventricular response as this is improved once her heart rate came under control. Chest x-ray reveals no significant abnormality. 3. CHEST PAIN -also may be related to atrial fibrillation. Cardiac biomarkers are negative. Continue to monitor closely. 4. S/P MITRAL CLIP FOR SEVERE MR - doing well. 5. HYPOKALEMIA - replete and monitor clinical daily 6. HYPONATREMIA - BMP in a.m. CC: Melissa Lang MD - Home Medications and Allergies Home Medications: Home Medications Medication Instructions Recorded Confirmed Type Zolpidem Tartrate [Ambien] 10 mg PO BEDTIME 12/21/14 12/15/16 History Docusate Sodium Cap [Colace Cap] 100 mg PO BID PRN 06/08/16 12/15/16 History Apixaban [Eliquis] 2.5 mg PO BID 08/27/16 12/15/16 History Ascorbic Acid Tab [Vitamin C Tab] 500 mg PO 1400 08/27/16 12/15/16 History Spironolactone 50 mg PO QAM 08/27/16 12/15/16 History Acetaminophen [Acetaminophen ER 1,300 mg PO BEDTIME 12/15/16 12/15/16 History Tab] Albuterol Neb [Proventil Neb] 2.5 mg RESP TX Q6H PRN 12/15/16 12/15/16 History Ferrous Sulfate Tab [Feosol 325 mg PO QAM 12/15/16 12/15/16 History Original Tab] Furosemide Tab [Lasix Tab] 40 mg PO QAM 12/15/16 12/15/16 History Ipratropium/Albuterol Inhaler 1 puff INH BID PRN 12/15/16 12/15/16 History [Combivent Respimat Inhaler] Magnesium Oxide 500 mg PO 1400 12/15/16 12/15/16 History Montelukast Tab [Singulair Tab] 10 mg PO BEDTIME 12/15/16 12/15/16 History Pantoprazole Sodium 40 mg PO DAILY 12/15/16 12/15/16 History Potassium Chloride 20 meq PO QAM 12/15/16 12/15/16 History Umeclidinium Brm/Vilanterol Tr 1 puff INH QAM 12/15/16 12/15/16 History [Anoro Ellipta] dilTIAZem HCl [Tiazac] 120 mg PO DAILY 12/15/16 12/15/16 History Allergies/Adverse Reactions: Allergies Allergy/AdvReac Type Severity Reaction Status Date / Time No Known Allergies Allergy Verified 12/15/16 10:07 Review of systems: REVIEW OF SYSTEMS: - Constitutional Constitutional: Present: Fatigue for the past 3 weeks. Absent: syncope, anorexia, night sweats - EENT Eyes: Absent: blurry vision, loss of vision, diplopia Ears: Absent: decreased hearing, ear pain, ear discharge - Cardiovascular Cardiovascular: Present: chest pain at various times without predictable pattern. Recent dyspnea on exertion, edema, palpitations. Absent: chest pain with deep breath, claudication - Respiratory Respiratory: Present: JENKINS, denies cough. Absent: wheezing, hemoptysis, change in phlegm color - Gastrointestinal Gastrointestinal: Denies: constipation. Absent: abdominal pain, hematemesis, hematochezia, melena, change in bowel habits, nausea - Genitourinary Genitourinary: Absent: difficulty urinating, dysuria, urinary hesitancy, flank pain - Musculoskeletal Musculoskeletal: Present: back pain Absent: joint swelling, muscle cramps, muscle weakness - Neurological Neurological: Present: normal gait without frequent falls. Absent: dizziness, hemiparesis - Psychiatric Psychiatric: Absent: anxiety, depression, difficulty concentrating - Endocrine Endocrine: Present: fatigue. Absent: cold intolerance, heat intolerance, polyuria, polyphagia, polydipsia - Hematologic/Lymphatic Hematologic/Lymphatic: Present: easy bruising. Absent: easy bleeding -Integumentary Integumentary: Absent: lesions, rashes, skin breakdown Medical,Surgical,& Family Hx - Medical History Cardio: History of: Cardiac Dysrhythmia (a fib), CHF (diastolic, she has had normal ef), CAD, Hypertension, PVD, Valvular Heart Disease (mitram valve had procedure at [facility]), Cardiovascular Problems No history of: Pacemaker Psychological: History of: Anxiety Disorders Neurology: History of: Peripheral Neuropathy No history of: Brain Aneurysm, Cerebral Hemorrhage, Cerebrovascular Accident , Cerebral Palsy, Dementia, Migraine, Multiple Sclerosis, Parkinson's Disease, Seizures, TIA, Vertigo, Neurologocal Cancer HEENT: History of: Eye Problem (blurry, out of focus pt states) No history of: Dental Problems Endocrine: No history of: Diabetes Mellitus (IDDM), Diabetes Mellitus (NIDDM) Respiratory: History of: Asthma, Bronchitis, COPD, Pneumonia, Respiratory Problems No history of: Obstructive Sleep Apnea, Pulmonary Embolism, Pulmonary Hypertension Gastrointestinal: History of: GERD Musculoskeletal: History of: Back/Neck Problems, Degenerative Disk Disease, Musculoskeletal Problems (peripheal neuropathy) No history of: Amputation Hematology: History of: Anemia No history of: Blood Transfusion Reaction Reproductive: History of: Abnormal Pap Smear, Endometriosis Other: No history of: Anesthesia Reactions, Anaphylaxis Comment Only: Miscellaneous Medical Problems (Open heart surgery as a child) - Surgical History Cardiac Surgeries: Sugical HX of: Cardiac Catheterization (May 25), Cardiac Surgery ("3 holes in heart" repaired during childhood) Thoracic Surgeries: Surgical HX of;: Lobectomy Patient denies;: Organ Transplant Neurologic Surgeries: Patient denies: Brain Aneurysm, Cerebral Hemorrhage, Neurologic Surgery Abdominal Surgeries: Surgical HX of: Abdominal Surgery, Cholecystectomy, Hernia Repair Reproductive Surgeries: Surgical HX of;: Hysterectomy Patient denies;: Breast Surgery, Genitourinary Surgery, Gynecologic Surgery Orthopedic Surgeries: Patient denies;: Implanted Devices - Family History Family History: Reports;: Family Cancer (? neice), Family Hypertension (? mother ) - Social History Smoking Status: Former smoker Have you smoked in the last 12 months: No Frequency of Alcohol Use: None Type of Drug Use: None Physical Examination Vital Signs Temp Pulse Resp BP Pulse Ox 98.3 F 145 H 20 106/83 95 12/15/16 10:02 12/15/16 10:02 12/15/16 10:02 12/15/16 10:02 12/15/16 10:02 Exam: General: [Appears well with no apparent distress.] [Pleasant and cooperative. ] [Appears comfortable.] HEENT: [PERRL, normocephalic, atraumatic. Mucous membranes moist. No jaundice noted. Conjunctiva moist and clear, sclerae anicteric] Neck: No JVD/HJR, no thyromegaly or lymphadenopathy noted. No carotid bruit appreciated Cardiac: [Irregularly irregular rhythm, controlled rate. Well-healed sternotomy incision. Lungs: [Clear to auscultation without accessory muscle use to assist the respiratory pattern.] Not requiring oxygen Abdomen: Soft, bowel sounds normoactive. Nontender and nondistended. No abdominal bruit or thrill noted. No masses noted. Musculoskeletal: No fluid collection. Decreased range of motion is noted. Extremities: No clubbing, cyanosis noted. [ No edema noted.] Upper extremity pulses 2+. Lower extremity pulses 2+. Capillary refill less than 3 seconds. Skin: No unusual lesions or rashes. No skin breakdown appreciated. Neuro: Awake, alert and oriented 3. Moves all extremities well without hemiparesis or paralysis. No essential tremor is appreciated. Result/EKG - Labs CBC & BMP: 12/15/16 10:26 12/15/16 10:26 Lab Results: I have reviewed the past 24 hour labs Labs: Laboratory Results - last 24 hr 12/15/16 12/15/16 12/15/16 10:26 10:26 10:26 WBC 11.3 RBC 5.89 H Hgb 13.5 Hct 42.0 MCV 71.3 L MCH 23 L MCHC 32.1 RDW 19.9 H Plt Count 351 MPV 9.4 L Neut % (Auto) 73.1 Lymph % (Auto) 13.1 L [place] % (Auto) 11.7 Eos % (Auto) 1.0 Baso % (Auto) 0.7 Neut # (Auto) 8.3 H Lymph # (Auto) 1.5 [place] # (Auto) 1.3 H Eos # (Auto) 0.1 Baso # (Auto) 0.1 Immature Gran % 0.4 Nucleated RBC % 0.0 Immature Gran # 0.05 Nucleated RBCs # 0.00 Immature Plt Fraction 0.0 INR 1.1 PT Patient/Control Mix 11.4 Circ Anticoag PTT 28.7 Sodium 126 L Potassium 3.3 L Chloride 83 L Carbon Dioxide 32 Anion Gap 14.3 BUN 23 H Creatinine 1.00 GFR Calculation 58 BUN/Creatinine Ratio 23.00 H Glucose 130 H Calculated Osmolality 258.4 L Calcium 10.2 H Magnesium Total Bilirubin 0.50 AST 37 ALT 27 Alkaline Phosphatase 112 Total Creatine Kinase 154 CK-MB (CK-2) 2.5 Troponin I < 0.015 B-Natriuretic Peptide Total Protein 8.0 Albumin 4.4 Globulin 3.6 H Albumin/Globulin Ratio 1.2 TSH 3rd Generation 12/15/16 12/15/16 12/15/16 10:26 10:26 10:26 WBC RBC Hgb Hct MCV MCH MCHC RDW Plt Count MPV Neut % (Auto) Lymph % (Auto) [place] % (Auto) Eos % (Auto) Baso % (Auto) Neut # (Auto) Lymph # (Auto) [place] # (Auto) Eos # (Auto) Baso # (Auto) Immature Gran % Nucleated RBC % Immature Gran # Nucleated RBCs # Immature Plt Fraction INR PT Patient/Control Mix Circ Anticoag PTT Sodium Potassium Chloride Carbon Dioxide Anion Gap BUN Creatinine GFR Calculation BUN/Creatinine Ratio Glucose Calculated Osmolality Calcium Magnesium 2.4 Total Bilirubin AST ALT Alkaline Phosphatase Total Creatine Kinase CK-MB (CK-2) Troponin I B-Natriuretic Peptide 76 Total Protein Albumin Globulin Albumin/Globulin Ratio TSH 3rd Generation 2.080 - Diagnostic Findings Procedure: Chest x-ray: report reviewed by me - EKG EKG results: interpreted by me EKG shows: atrial fibrillation
[2016-12-15] MEDS: APIXABAN 2.5 MG TABLET PO SCH (20:50)
[2016-12-15] MEDS: ASCORBIC ACID 500 MG TABLET PO SCH (20:50)
[2016-12-15] MEDS ORDERED: MONTELUKAST 10 MG TABLET PO SCH (21:00)
[2016-12-16] MEDS: DILTIAZEM 30 MG TABLET PO SCH (00:18)
[2016-12-16] MEDS: ALBUTEROL/IPRATROPIUM 3 ML NEB RESP TX SCH ×3 (01:38→11:03)
[2016-12-16] MEDS: SODIUM CHLORIDE 0.9% 1,000 ML IV SCH (04:37)
[2016-12-16 04:52] LABS: Basophils % 0.4 % (0.0-0.8); Eosinophils # 0.1 10*3/uL (0.0-0.87); Eosinophils % 1.9 % (0.00-10.9); Hematocrit 35.5 VOL% (35.7-47.0); Hemoglobin 11.3 GM/DL (12.0-16.0); Immature Granulocytes % 0.3 %; Immature Granulocytes Absolute 0.02 #; Lymphocytes # 1.4 10*3/uL (1.4-4.0); Lymphocytes % 18.8 % (21.3-54.2); Mean Corpuscular HGB Conc 31.8 GM/DL (32-36); Mean Corpuscular Hemoglobin 23 PG (27-34); Mean Corpuscular Volume 72.2 FL (87-102); Mean Platelet Volume 9.8 FL (9.6-12.0); Monocytes # 1.1 10*3/uL (0.11-0.8); Monocytes % 15.2 % (1.7-12.7); Neutrophils # 4.6 10*3/uL (1.4-7.4); Neutrophils % 63.4 % (38.7-73.9); Platelet Count 237 T/CUMM (130-400); Red Blood Count 4.92 MC/CUMM (3.8-5.5); Red Cell Distribution Width 19.6 % (9.3-17.3); White Blood Count 7.3 T/CUMM (4-12)
[2016-12-16 05:09] LABS: Calcium 8.8 MG/DL (8.5-10.1); Magnesium 2.3 MG/DL (1.8-2.4); Osmolality,Calculated 261.9 MOS/KG (273-304); Potassium 3.4 MMOL/L (3.5-5.1)
[2016-12-16] MEDS: APIXABAN 2.5 MG TABLET PO SCH (08:45)
[2016-12-16] MEDS: ASCORBIC ACID 500 MG TABLET PO SCH (08:46)
[2016-12-16] MEDS ORDERED: FERROUS SULFATE 325 MG TABLET PO SCH (09:00)
[2016-12-16] MEDS ORDERED: DILTIAZEM CD 120 MG CAPSULE PO SCH (09:00)
--- NOTE | 2016-12-16 09:16 | Cardiology Progress Note ---
Assessment and Plan - Time spent with patient Time spent with patient: Less than 30 minutes (1) Paroxysmal atrial fibrillation Status: Acute Assessment and plan: as per HPI Current Visit: Yes (2) Anemia Status: Chronic Current Visit: No (3) S/P mitral valve clip implantation Status: Chronic Current Visit: Yes Cardiology - PN: Subj Interval history: The patient had A. fib with RVR again last night. Her potassium is still not corrected. She is very focused on her lower extremity edema and I recommended that she wear CELINE hose. She wants additional diuretics and I think this is a precipitating factor in her atrial fibrillation with hypokalemia. I will additionally replate her oral potassium today would like to see it over 4. We will also empirically add magnesium. Her serum magnesium level is okay. Resume Aldactone as well tomorrow. Replete electrolytes and follow. We will add CELINE hose. I suspect he will be fine for the patient to be discharged at any point as long as her rate is controlled she has paroxysmal atrial fibrillation she is anticoagulated. Her H&H have declined but I think this is due most likely to volume expansion. She has had no signs or symptoms of bleeding that I can obtain from her. Exam (Progress Note) - Constitutional Vitals: Period Temp Pulse Resp BP Sys/Tran Pulse Ox Last 24 Hr 97.6 F-98.5 F 60-863 16-20 93-130/49-83 90-99 General appearance: over weight - Head Head exam: Present: normal inspection - Eye Eye exam: Present: EOMI Pupils: Present: NIKITA - Neck Neck exam: Present: normal inspection - Respiratory Respiratory exam: Present: clear to auscultation bilaterally - Cardiovascular Cardiovascular exam: Present: regular rate and rhythm (2/6 murmur of aortic sclerosis) - Extremities Exam Extremities exam: Present: normal inspection. Absent: edema - Back Exam Back exam: Present: normal inspection - Neurological Exam Neurological exam: Present: alert - Psychiatric Psychiatric exam: Present: normal affect, normal mood - Skin Skin exam: Present: normal color, warm, dry Result/EKG - Labs CBC & BMP: 12/16/16 02:52 12/16/16 02:52 Labs: Laboratory Results - last 24 hr 12/15/16 12/15/16 12/15/16 10:26 10:26 10:26 WBC 11.3 RBC 5.89 H Hgb 13.5 Hct 42.0 MCV 71.3 L MCH 23 L MCHC 32.1 RDW 19.9 H Plt Count 351 MPV 9.4 L Neut % (Auto) 73.1 Lymph % (Auto) 13.1 L [place] % (Auto) 11.7 Eos % (Auto) 1.0 Baso % (Auto) 0.7 Neut # (Auto) 8.3 H Lymph # (Auto) 1.5 [place] # (Auto) 1.3 H Eos # (Auto) 0.1 Baso # (Auto) 0.1 Immature Gran % 0.4 Nucleated RBC % 0.0 Immature Gran # 0.05 Nucleated RBCs # 0.00 Immature Plt Fraction 0.0 INR 1.1 PT Patient/Control Mix 11.4 Circ Anticoag PTT 28.7 Sodium 126 L Potassium 3.3 L Chloride 83 L Carbon Dioxide 32 Anion Gap 14.3 BUN 23 H Creatinine 1.00 GFR Calculation 58 BUN/Creatinine Ratio 23.00 H Glucose 130 H Hemoglobin A1c Calculated Osmolality 258.4 L Calcium 10.2 H Magnesium Total Bilirubin 0.50 AST 37 ALT 27 Alkaline Phosphatase 112 Total Creatine Kinase 154 CK-MB (CK-2) 2.5 Troponin I < 0.015 B-Natriuretic Peptide Total Protein 8.0 Albumin 4.4 Globulin 3.6 H Albumin/Globulin Ratio 1.2 TSH 3rd Generation 12/15/16 12/15/16 12/15/16 10:26 10:26 10:26 WBC RBC Hgb Hct MCV MCH MCHC RDW Plt Count MPV Neut % (Auto) Lymph % (Auto) [place] % (Auto) Eos % (Auto) Baso % (Auto) Neut # (Auto) Lymph # (Auto) [place] # (Auto) Eos # (Auto) Baso # (Auto) Immature Gran % Nucleated RBC % Immature Gran # Nucleated RBCs # Immature Plt Fraction INR PT Patient/Control Mix Circ Anticoag PTT Sodium Potassium Chloride Carbon Dioxide Anion Gap BUN Creatinine GFR Calculation BUN/Creatinine Ratio Glucose Hemoglobin A1c Calculated Osmolality Calcium Magnesium 2.4 Total Bilirubin AST ALT Alkaline Phosphatase Total Creatine Kinase CK-MB (CK-2) Troponin I B-Natriuretic Peptide 76 Total Protein Albumin Globulin Albumin/Globulin Ratio TSH 3rd Generation 2.080 12/15/16 12/15/16 12/16/16 16:20 16:20 02:52 WBC 7.3 D RBC 4.92 Hgb 11.3 L D Hct 35.5 L MCV 72.2 L MCH 23 L MCHC 31.8 L RDW 19.6 H Plt Count 237 D MPV 9.8 Neut % (Auto) 63.4 Lymph % (Auto) 18.8 L [place] % (Auto) 15.2 H Eos % (Auto) 1.9 Baso % (Auto) 0.4 Neut # (Auto) 4.6 Lymph # (Auto) 1.4 [place] # (Auto) 1.1 H Eos # (Auto) 0.1 Baso # (Auto) 0.0 Immature Gran % 0.3 Nucleated RBC % 0.0 Immature Gran # 0.02 Nucleated RBCs # 0.00 Immature Plt Fraction 0.0 INR PT Patient/Control Mix Circ Anticoag PTT Sodium Potassium Chloride Carbon Dioxide Anion Gap BUN Creatinine GFR Calculation BUN/Creatinine Ratio Glucose Hemoglobin A1c 6.2 Calculated Osmolality Calcium Magnesium Total Bilirubin AST ALT Alkaline Phosphatase Total Creatine Kinase CK-MB (CK-2) Troponin I < 0.015 B-Natriuretic Peptide Total Protein Albumin Globulin Albumin/Globulin Ratio [facility] 3rd Generation 12/16/16 02:52 WBC RBC Hgb Hct MCV MCH MCHC RDW Plt Count MPV Neut % (Auto) Lymph % (Auto) [place] % (Auto) Eos % (Auto) Baso % (Auto) Neut # (Auto) Lymph # (Auto) [place] # (Auto) Eos # (Auto) Baso # (Auto) Immature Gran % Nucleated RBC % Immature Gran # Nucleated RBCs # Immature Plt Fraction INR PT Patient/Control Mix Circ Anticoag PTT Sodium 129 L Potassium 3.4 L Chloride 90 L Carbon Dioxide 31 Anion Gap 11.4 BUN 18 Creatinine 0.80 GFR Calculation 76 BUN/Creatinine Ratio 22.00 H Glucose 127 H Hemoglobin A1c Calculated Osmolality 261.9 L Calcium 8.8 Magnesium 2.3 Total Bilirubin AST ALT Alkaline Phosphatase Total Creatine Kinase CK-MB (CK-2) Troponin I B-Natriuretic Peptide Total Protein Albumin Globulin Albumin/Globulin Ratio TSH 3rd Generation
[2016-12-16] MEDS ORDERED: MAGNESIUM OXIDE 400 MG TABLET PO SCH (09:30)
--- NOTE | 2016-12-16 09:59 | EKG Report ---
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
[2016-12-16] MEDS ORDERED: POTASSIUM CHLORIDE 20 MEQ TABLET PO ONE (11:10)
--- NOTE | 2016-12-16 11:46 | Discharge Summary ---
Hospital Course - Hospital Course Hospital Course: The patient was admitted to the hospital with nausea vomiting and weakness. She has intermittent atrial tachycardia and is anticoagulated. The patient had cardiology consultation. The patient received some IV hydration and was monitored. The patient's symptoms have resolved the following day and she is now ready for discharge home. I coordinate care with Dr. Martin. Patient medications were reconciled upon admission, and again at the time of discharge. The patient was screened for tobacco use and found to be a never smoker. The patient's medical decsion maker is themself, and when asked, they asked to be Full code. Discharge Time was 32 minutes, including final examination, evaluation and planning, education, reconciliation of medications, writing prescriptions, coordinating care with case assembler, and preparing discharge documentation. - Time spent with patient Time with patient DS: Greater than 30 minutes Diagnosis - Discharge Diagnosis (1) History of radiofrequency ablation for complex left atrial arrhythmia Status: Chronic (2) S/P mitral valve clip implantation Status: Chronic (3) Paroxysmal atrial fibrillation Status: Chronic Discharge Plan - Discharge Data Disposition: Disch To Home/Self Care Condition at Discharge: Stable Discharge Diet: heart healthy Activity: resume usual activities as tolerated - Discharge Medications New dilTIAZem HCl [Diltiazem ER (24 hr)] 120 mg PO DAILY #60 capsule Continue Zolpidem Tartrate [Ambien] 10 mg PO BEDTIME Docusate Sodium Cap [Colace Cap] 100 mg PO BID PRN PRN Reason: Constipation Spironolactone 50 mg PO QAM Ascorbic Acid Tab [Vitamin C Tab] 500 mg PO 1400 Apixaban [Eliquis] 2.5 mg PO BID Ipratropium/Albuterol Inhaler [Combivent Respimat Inhaler] 1 puff INH BID PRN PRN Reason: Shortness Of Breath Pantoprazole Sodium 40 mg PO DAILY Acetaminophen [Acetaminophen ER Tab] 1,300 mg PO BEDTIME Furosemide Tab [Lasix Tab] 40 mg PO QAM Ferrous Sulfate Tab [Feosol Original Tab] 325 mg PO QAM Albuterol Neb [Proventil Neb] 2.5 mg RESP TX Q6H PRN PRN Reason: Shortness Of Breath/Wheezing Umeclidinium Brm/Vilanterol Tr [Anoro Ellipta] 1 puff INH QAM Magnesium Oxide 500 mg PO 1400 Potassium Chloride 20 meq PO QAM Montelukast Tab [Singulair Tab] 10 mg PO BEDTIME Discontinued dilTIAZem HCl [Tiazac] 120 mg PO DAILY - Follow Up or Referral - Forms/Instructions Exam - Constitutional Vitals: Period Temp Pulse Resp BP Sys/Tran Pulse Ox Last 24 Hr 97.6 F-98.5 F 54-115 18-20 93-130/49-74 90-99 Discharge Results Procedures and tests throughout hospitalization: Pending Orders 12/16/16 04:25 Sputum Culture and Gram Stain Stat 12/17/16 04:00 Basic Metabolic Panel w/Mg IN AM CBC [Comp Blood Count Auto Diff] IN AM Labs on day of discharge: Labs from last 24 hours 12/16/16 12/16/16 12/15/16 02:52 02:52 16:20 WBC 7.3 D RBC 4.92 Hgb 11.3 L D Hct 35.5 L MCV 72.2 L MCH 23 L MCHC 31.8 L RDW 19.6 H Plt Count 237 D MPV 9.8 Neut % (Auto) 63.4 Lymph % (Auto) 18.8 L [place] % (Auto) 15.2 H Eos % (Auto) 1.9 Baso % (Auto) 0.4 Neut # (Auto) 4.6 Lymph # (Auto) 1.4 [place] # (Auto) 1.1 H Eos # (Auto) 0.1 Baso # (Auto) 0.0 Immature Gran % 0.3 Nucleated RBC % 0.0 Immature Gran # 0.02 Nucleated RBCs # 0.00 Immature Plt Fraction 0.0 Sodium 129 L Potassium 3.4 L Chloride 90 L Carbon Dioxide 31 Anion Gap 11.4 BUN 18 Creatinine 0.80 GFR Calculation 76 BUN/Creatinine Ratio 22.00 H Glucose 127 H Hemoglobin A1c Calculated Osmolality 261.9 L Calcium 8.8 Magnesium 2.3 Troponin I < 0.015 TSH 3rd Generation 12/15/16 12/15/16 12/15/16 16:20 10:26 10:26 WBC RBC Hgb Hct MCV MCH MCHC RDW Plt Count MPV Neut % (Auto) Lymph % (Auto) [place] % (Auto) Eos % (Auto) Baso % (Auto) Neut # (Auto) Lymph # (Auto) [place] # (Auto) Eos # (Auto) Baso # (Auto) Immature Gran % Nucleated RBC % Immature Gran # Nucleated RBCs # Immature Plt Fraction Sodium Potassium Chloride Carbon Dioxide Anion Gap BUN Creatinine GFR Calculation BUN/Creatinine Ratio Glucose Hemoglobin A1c 6.2 Calculated Osmolality Calcium Magnesium 2.4 Troponin I TSH 3rd Generation 2.080 DS: Provider Date of admission: 12/15/16 12:03 Primary care physician: . No PCP Attending physician on admission: Mehran Bueno MD Consults: 12/15/16 12:21 Consult to Physician [CONS] Routine Comment: a fib, y'all've been changing her meds Consulting Provider: Cardiology - [facility] When should Consulting Provider be notified: Now Discharging clinician: Prakash Hernandez MD
[2016-12-16 12:29] VITALS: BP 127/57
[2016-12-17] MEDS ORDERED: SPIRONOLACTONE 50 MG TABLET PO SCH (09:00)
[2016-12-17] MEDS ORDERED: POTASSIUM CHLORIDE 20 MEQ TABLET PO SCH (09:00)
== END 2016-12-16 13:50 | disposition home or self-care (01) | DRG 310 ==
LOC: N.ED 09:58 → SUATTDRO 12:03 → N.EDINP 12:03 → N.TELES 12:03 → N.ED 14:21
PROVIDERS: ADMIT Internal Medicine; ATTEND Internal Medicine

== ENCOUNTER 2018-04-10 10:30 | Inpatient (IN) ==
[2018-04-10] MEDS ORDERED: methylPREDNISolone SOD SUC 125 MG/2 ML VIAL IV STA (10:50)
[2018-04-10] MEDS ORDERED: ALBUTEROL/IPRATROPIUM 3 ML NEB RESP TX STA ×2 (10:50→13:07)
[2018-04-10] MEDS ORDERED: FUROSEMIDE 40 MG/4 ML VIAL IV STA (11:17)
[2018-04-10 11:42] LABS: Basophils % 0.4 % (0.0-0.8); Eosinophils # 0.3 10*3/uL (0.0-0.87); Eosinophils % 4.1 % (0.00-10.9); Hematocrit 40.5 VOL% (35.7-47.0); Hemoglobin 12.2 GM/DL (12.0-16.0); Immature Granulocytes % 0.3 %; Immature Granulocytes Absolute 0.02 #; Lymphocytes # 0.8 10*3/uL (1.4-4.0); Lymphocytes % 10.7 % (21.3-54.2); Mean Corpuscular HGB Conc 30.1 GM/DL (32-36); Mean Corpuscular Hemoglobin 25 PG (27-34); Mean Corpuscular Volume 83.7 FL (87-102); Mean Platelet Volume 9.7 FL (9.6-12.0); Monocytes # 0.7 10*3/uL (0.11-0.8); Monocytes % 9.5 % (1.7-12.7); Neutrophils # 5.5 10*3/uL (1.4-7.4); Platelet Count 216 T/CUMM (130-400); Red Blood Count 4.84 MC/CUMM (3.8-5.5); Red Cell Distribution Width 17.6 % (9.3-17.3); White Blood Count 7.3 T/CUMM (4-12)
[2018-04-10 12:01] LABS: Albumin 3.8 G/DL (3.4-5.0); Bilirubin,Total 0.5 MG/DL (0.2-1.0); Calcium 8.8 MG/DL (8.5-10.1); Osmolality,Calculated 272.8 MOS/KG (273-304); Potassium 4.2 MMOL/L (3.5-5.1); Total Protein 6.8 G/DL (6.4-8.3)
[2018-04-10] MEDS ORDERED: ONDANSETRON 4 MG/2 ML VIAL IV PRN (13:28)
[2018-04-10] MEDS ORDERED: ALBUTEROL 2.5 MG/3 ML NEB RESP TX PRN (13:37)
[2018-04-10] MEDS ORDERED: MAGNESIUM HYDROXIDE SUSP 30 ML UDCUP PO PRN (16:07)
[2018-04-10] MEDS ORDERED: ALUMINUM/MAGNES/SIMETH MAX STR 30 ML UDCUP PO PRN (16:07)
[2018-04-10] MEDS ORDERED: INFLUENZA VIRUS VACCINE 0.5 ML SYRINGE IM ONE (16:43)
[2018-04-10] MEDS: LEVOFLOXACIN INJ 750 MG in PREMIX 1 EACH IV SCH (17:26)
[2018-04-10] MEDS: methylPREDNISolone SOD SUC 40 MG/1 ML VIAL IV SCH ×2 (17:36→22:03)
[2018-04-10] MEDS: ALBUTEROL/IPRATROPIUM 3 ML NEB RESP TX SCH (19:41)
[2018-04-10] MEDS: APIXABAN 2.5 MG TABLET PO SCH (22:03)
[2018-04-10] MEDS: DILTIAZEM CD 180 MG CAPSULE PO SCH (22:03)
[2018-04-10] MEDS: AMITRIPTYLINE 25 MG TABLET PO SCH (22:03)
[2018-04-10] MEDS: MONTELUKAST 10 MG TABLET PO SCH (22:03)
[2018-04-10] MEDS: DOCUSATE SODIUM 100 MG CAPSULE PO SCH (22:03)
[2018-04-10] MEDS: ACETAMINOPHEN 325 MG TABLET PO PRN (22:17)
[2018-04-11] MEDS: ALBUTEROL/IPRATROPIUM 3 ML NEB RESP TX SCH ×4 (01:27→19:04)
[2018-04-11] MEDS: methylPREDNISolone SOD SUC 40 MG/1 ML VIAL IV SCH ×3 (05:27→20:47)
[2018-04-11 06:26] LABS: Hematocrit 37.6 VOL% (35.7-47.0); Hemoglobin 11.8 GM/DL (12.0-16.0); Immature Granulocytes % 1.4 %; Immature Granulocytes Absolute 0.08 #; Lymphocytes # 0.3 10*3/uL (1.4-4.0); Mean Corpuscular HGB Conc 31.4 GM/DL (32-36); Mean Corpuscular Hemoglobin 26 PG (27-34); Mean Corpuscular Volume 82.6 FL (87-102); Mean Platelet Volume 9.9 FL (9.6-12.0); Monocytes # 0.1 10*3/uL (0.11-0.8); Monocytes % 1.1 % (1.7-12.7); Neutrophils # 5.2 10*3/uL (1.4-7.4); Neutrophils % 91.5 % (38.7-73.9); Platelet Count 224 T/CUMM (130-400); Red Blood Count 4.55 MC/CUMM (3.8-5.5); Red Cell Distribution Width 16.8 % (9.3-17.3); White Blood Count 5.7 T/CUMM (4-12)
[2018-04-11 06:52] LABS: Calcium 8.7 MG/DL (8.5-10.1); Osmolality,Calculated 280.1 MOS/KG (273-304); Potassium 4.2 MMOL/L (3.5-5.1); Risk Ratio 4.84; Thyroid Stimulating Hormone 0.357 uIU/ml (0.358-3.74); VLDL CHOLESTEROL 13.4 MG/DL
[2018-04-11 06:53] LABS: Band Neutrophils 5 % (0-10); Hypochromasia 1+; Lymphocytes 10 % (20-55); Platelet Estimate Adequate; Segmented Neutrophils 85 % (50-85); Total Cells Counted 100
[2018-04-11] MEDS: FERROUS SULFATE 325 MG TABLET PO SCH (09:42)
[2018-04-11] MEDS: APIXABAN 2.5 MG TABLET PO SCH ×2 (09:42→20:47)
[2018-04-11] MEDS: DILTIAZEM CD 180 MG CAPSULE PO SCH ×2 (09:43→20:47)
[2018-04-11] MEDS: DOCUSATE SODIUM 100 MG CAPSULE PO SCH ×3 (09:43→20:47)
[2018-04-11] MEDS: SPIRONOLACTONE 25 MG TABLET PO SCH (09:43)
[2018-04-11] MEDS: FUROSEMIDE 80 MG TABLET PO SCH (09:43)
[2018-04-11] MEDS: PANTOPRAZOLE 40 MG TABLET PO SCH (09:43)
[2018-04-11] MEDS: BUDESONIDE 0.5 MG/2 ML NEB RESP TX SCH ×2 (12:24→19:04)
[2018-04-11] MEDS: LEVOFLOXACIN INJ 750 MG in PREMIX 1 EACH IV SCH (14:10)
[2018-04-11] MEDS: MONTELUKAST 10 MG TABLET PO SCH (20:47)
[2018-04-11] MEDS: AMITRIPTYLINE 25 MG TABLET PO SCH (20:47)
[2018-04-11] MEDS: ACETAMINOPHEN 325 MG TABLET PO PRN (20:50)
[2018-04-12] MEDS: ALBUTEROL/IPRATROPIUM 3 ML NEB RESP TX SCH ×2 (00:40→07:32)
[2018-04-12 05:53] LABS: Hematocrit 37.5 VOL% (35.7-47.0); Hemoglobin 11.4 GM/DL (12.0-16.0); Immature Granulocytes % 0.5 %; Immature Granulocytes Absolute 0.06 #; Lymphocytes # 0.4 10*3/uL (1.4-4.0); Lymphocytes % 3.2 % (21.3-54.2); Mean Corpuscular HGB Conc 30.4 GM/DL (32-36); Mean Corpuscular Hemoglobin 26 PG (27-34); Mean Corpuscular Volume 83.9 FL (87-102); Mean Platelet Volume 10.1 FL (9.6-12.0); Monocytes # 0.3 10*3/uL (0.11-0.8); Monocytes % 2.8 % (1.7-12.7); Neutrophils # 10.4 10*3/uL (1.4-7.4); Neutrophils % 93.5 % (38.7-73.9); Platelet Count 234 T/CUMM (130-400); Red Blood Count 4.47 MC/CUMM (3.8-5.5); White Blood Count 11.1 T/CUMM (4-12)
[2018-04-12 06:38] LABS: Osmolality,Calculated 284.1 MOS/KG (273-304); Potassium 4.6 MMOL/L (3.5-5.1)
[2018-04-12 07:08] LABS: Band Neutrophils 2 % (0-10); Lymphocytes 3 % (20-55); Platelet Estimate Normal; Segmented Neutrophils 93 % (50-85); Total Cells Counted 100
[2018-04-12 07:31] VITALS: BP 109/71
[2018-04-12] MEDS: BUDESONIDE 0.5 MG/2 ML NEB RESP TX SCH (07:32)
[2018-04-12] MEDS: PANTOPRAZOLE 40 MG TABLET PO SCH (09:07)
[2018-04-12] MEDS: FUROSEMIDE 80 MG TABLET PO SCH (09:07)
[2018-04-12] MEDS: APIXABAN 2.5 MG TABLET PO SCH (09:07)
[2018-04-12] MEDS: DILTIAZEM CD 180 MG CAPSULE PO SCH (09:07)
[2018-04-12] MEDS: SPIRONOLACTONE 25 MG TABLET PO SCH (09:09)
[2018-04-12] MEDS: methylPREDNISolone SOD SUC 40 MG/1 ML VIAL IV SCH (09:09)
[2018-04-12] MEDS: DOCUSATE SODIUM 100 MG CAPSULE PO SCH (09:09)
[2018-04-12] MEDS: FERROUS SULFATE 325 MG TABLET PO SCH (09:09)
== END 2018-04-12 10:20 | disposition home or self-care (01) | DRG 191 ==
LOC: N.ED 10:30 → N.EDINP 13:28 → N.5E 15:13
PROVIDERS: ADMIT Internal Medicine; ATTEND Internal Medicine

== ENCOUNTER 2018-10-08 13:17 | Inpatient (IN) ==
[2018-10-08 14:18] LABS: PT Patient Result 11.2 SECS
[2018-10-08 14:21] LABS: Basophils % 0.4 % (0.0-0.8); Eosinophils # 0.1 10*3/uL (0.0-0.87); Eosinophils % 0.8 % (0.00-10.9); Immature Granulocytes Absolute 0.11 #; Lymphocytes # 0.6 10*3/uL (1.4-4.0); Mean Corpuscular HGB Conc 27.9 GM/DL (32-36); Mean Platelet Volume 9.5 FL (9.6-12.0); NRBC # 0.02 10*3/uL; Neutrophils % 86.8 % (38.7-73.9); Platelet Count 250 T/CUMM (130-400); Red Blood Count 3.72 MC/CUMM (3.8-5.5); Red Cell Distribution Width 16.7 % (9.3-17.3); White Blood Count 11.3 T/CUMM (4-12)
[2018-10-08 14:22] LABS: Hematocrit 30.5 VOL% (35.7-47.0); Hemoglobin 8.5 GM/DL (12.0-16.0)
[2018-10-08 14:23] LABS: Calcium 8.8 MG/DL (8.5-10.1); Osmolality,Calculated 274.8 MOS/KG (273-304)
[2018-10-08] MEDS ORDERED: ALBUTEROL 2.5 MG/3 ML NEB RESP TX STA (14:28)
[2018-10-08 14:47] LABS: Anisocytosis 1+; Hypochromasia 1+; Microcytosis 1+; Polychromasia 1+
[2018-10-08 14:48] LABS: Platelet Estimate Normal; Rouleau Slight; Stomatocytes Few
[2018-10-08] MEDS ORDERED: methylPREDNISolone SOD SUC 125 MG/2 ML VIAL IV STA (15:50)
[2018-10-08 16:09] LABS: % Iron Saturation 11.6 % (18-50); Ferritin 12.8 ng/ml (8-252)
[2018-10-08 16:13] LABS: Folate 11.3 NG/ML (5.4-24.0)
[2018-10-08] MEDS ORDERED: LACTULOSE 20 GM/30 ML UDCUP PO PRN (16:26)
[2018-10-08] MEDS ORDERED: ACETAMINOPHEN 325 MG TABLET PO PRN (16:26)
[2018-10-08] MEDS ORDERED: ONDANSETRON 4 MG/2 ML VIAL IV PRN (16:26)
[2018-10-08] MEDS ORDERED: ALBUTEROL 2.5 MG/3 ML NEB RESP TX PRN (16:36)
[2018-10-08] MEDS: methylPREDNISolone SOD SUC 125 MG/2 ML VIAL IV SCH (17:46)
[2018-10-08] MEDS: FUROSEMIDE 40 MG/4 ML VIAL IV SCH (17:47)
[2018-10-08] MEDS ORDERED: ALBUTEROL 2.5 MG/3 ML NEB RESP TX SCH (19:00)
[2018-10-08 19:03] LABS: Thyroid Stimulating Hormone 0.853 uIU/ml (0.358-3.74)
[2018-10-08] MEDS: ALBUTEROL/IPRATROPIUM 3 ML NEB RESP TX SCH (20:00)
[2018-10-08] MEDS ORDERED: ALPRAZolam 0.25 MG TABLET PO ONE (20:14)
[2018-10-08] MEDS: ZALEPLON 5 MG CAPSULE PO SCH (20:30)
[2018-10-08] MEDS: DILTIAZEM CD 180 MG CAPSULE PO SCH (20:31)
[2018-10-08] MEDS: FERROUS SULFATE 325 MG TABLET PO SCH (20:31)
[2018-10-08] MEDS: AMITRIPTYLINE 25 MG TABLET PO SCH (20:31)
[2018-10-08] MEDS: MONTELUKAST 10 MG TABLET PO SCH (20:31)
[2018-10-08] MEDS: DOCUSATE SODIUM 100 MG CAPSULE PO SCH (20:31)
[2018-10-08] MEDS: APIXABAN 2.5 MG TABLET PO SCH (20:31)
[2018-10-08 23:58] LABS: Apearance,Urine CLEAR (Clear); Bilirubin,Urine Negative (Negative); Blood, Urine Negative (Negative); Glucose,Urine (UA) Negative (Negative); Ketones,Urine Negative (Negative); Mucus,Urine Occasional /LPF (Occasional); Nitrite,Urine Negative (Negative); Protein,Urine Negative; RBC,Urine 1 /HPF (0-4); Squamous Epithelial Cell,Urine Occasional /HPF (0-10); Urine Color Straw (Yellow); Urine Specific Gravity 1.003 (1.001-1.035); Urine Urobilinogen < 2.0 EU/DL (0.2-1.0); WBC,Urine 1 /HPF (0-6)
[2018-10-09] MEDS: ALBUTEROL/IPRATROPIUM 3 ML NEB RESP TX SCH ×4 (01:12→19:50)
[2018-10-09] MEDS: methylPREDNISolone SOD SUC 125 MG/2 ML VIAL IV SCH ×3 (01:12→17:29)
[2018-10-09 04:27] LABS: Basophils % 0.2 % (0.0-0.8); Hemoglobin 8.5 GM/DL (12.0-16.0); Immature Granulocytes % 1.5 %; Immature Granulocytes Absolute 0.13 #; Lymphocytes # 0.4 10*3/uL (1.4-4.0); Mean Corpuscular HGB Conc 27.2 GM/DL (32-36); Mean Corpuscular Volume 84.1 FL (87-102); Mean Platelet Volume 9.6 FL (9.6-12.0); Monocytes % 0.7 % (1.7-12.7); NRBC # 0.03 10*3/uL; Neutrophils % 93.6 % (38.7-73.9); Platelet Count 216 T/CUMM (130-400); Red Blood Count 3.72 MC/CUMM (3.8-5.5); Red Cell Distribution Width 16.9 % (9.3-17.3); White Blood Count 8.8 T/CUMM (4-12)
[2018-10-09 04:31] LABS: Hematocrit 31.3 VOL% (35.7-47.0)
[2018-10-09 04:47] LABS: Hypochromasia 1+; Lymphocytes 7 % (20-55); Ovalocytes Slight; Platelet Estimate Adequate; Segmented Neutrophils 93 % (50-85); Total Cells Counted 100
[2018-10-09 04:48] LABS: Microcytosis Slight
[2018-10-09 04:56] LABS: Calcium 8.3 MG/DL (8.5-10.1); Osmolality,Calculated 279.8 MOS/KG (273-304); Risk Ratio 3.69; VLDL CHOLESTEROL 16.2 MG/DL
[2018-10-09 05:04] LABS: Folate 8.4 NG/ML (5.4-24.0); Vitamin B12 376 PG/ML (211-911)
[2018-10-09 05:57] LABS: Sedimentation Rate-Westergren 46 MM/HR (0-30)
[2018-10-09 08:51] LABS: Hemoglobin A1 (Alkaline) 97.5 % (96.5-98.5); Hemoglobin A2 (Alkaline) 2.5 % (1.5-3.5)
[2018-10-09] MEDS ORDERED: Fluticasone-Umeclidin-Vilanter [Trelegy Ellipta] INH SCH (09:00)
[2018-10-09] MEDS: DILTIAZEM CD 180 MG CAPSULE PO SCH ×2 (09:35→21:22)
[2018-10-09] MEDS: SPIRONOLACTONE 50 MG TABLET PO SCH (09:35)
[2018-10-09] MEDS: APIXABAN 2.5 MG TABLET PO SCH ×2 (09:36→21:20)
[2018-10-09] MEDS: ASCORBIC ACID 500 MG TABLET PO SCH (09:36)
[2018-10-09] MEDS: PANTOPRAZOLE 40 MG TABLET PO SCH (09:36)
[2018-10-09] MEDS: DOCUSATE SODIUM 100 MG CAPSULE PO SCH ×3 (09:36→21:21)
[2018-10-09] MEDS: FERROUS SULFATE 325 MG TABLET PO SCH ×2 (09:36→21:21)
[2018-10-09] MEDS: MAGNESIUM GLUCONATE 500 MG TABLET PO SCH (09:37)
[2018-10-09] MEDS: FUROSEMIDE 40 MG/4 ML VIAL IV SCH ×2 (09:40→17:24)
[2018-10-09] MEDS: ALPRAZolam 0.25 MG TABLET PO PRN ×2 (09:46→21:22)
[2018-10-09] MEDS: CHOLECALCIFEROL 400 UNIT TABLET PO SCH (10:25)
[2018-10-09] MEDS: MONTELUKAST 10 MG TABLET PO SCH (21:20)
[2018-10-09] MEDS: ZALEPLON 5 MG CAPSULE PO SCH (21:21)
[2018-10-09] MEDS: AMITRIPTYLINE 25 MG TABLET PO SCH (21:21)
[2018-10-10] MEDS: methylPREDNISolone SOD SUC 125 MG/2 ML VIAL IV SCH (01:13)
[2018-10-10] MEDS: ALBUTEROL/IPRATROPIUM 3 ML NEB RESP TX SCH ×4 (01:56→19:27)
[2018-10-10 05:26] LABS: Calcium 8.9 MG/DL (8.5-10.1)
[2018-10-10 05:37] LABS: Basophils % 0.2 % (0.0-0.8); Hematocrit 29.7 VOL% (35.7-47.0); Immature Granulocytes % 0.9 %; Immature Granulocytes Absolute 0.13 #; Lymphocytes # 0.3 10*3/uL (1.4-4.0); Mean Corpuscular HGB Conc 27.9 GM/DL (32-36); Mean Corpuscular Volume 82.7 FL (87-102); Mean Platelet Volume 9.8 FL (9.6-12.0); Monocytes % 2.4 % (1.7-12.7); NRBC # 0.02 10*3/uL; Neutrophils % 94.5 % (38.7-73.9); Platelet Count 235 T/CUMM (130-400); Red Blood Count 3.59 MC/CUMM (3.8-5.5); Red Cell Distribution Width 17.3 % (9.3-17.3); White Blood Count 14.8 T/CUMM (4-12)
[2018-10-10 05:38] LABS: Hemoglobin 8.3 GM/DL (12.0-16.0)
[2018-10-10 05:43] LABS: Band Neutrophils 3 % (0-10); Lymphocytes 4 % (20-55); Platelet Estimate Normal; Segmented Neutrophils 91 % (50-85); Total Cells Counted 100
[2018-10-10] MEDS: DOCUSATE SODIUM 100 MG CAPSULE PO SCH ×3 (09:21→21:08)
[2018-10-10] MEDS: FUROSEMIDE 40 MG TABLET PO SCH (09:21)
[2018-10-10] MEDS: CHOLECALCIFEROL 400 UNIT TABLET PO SCH (09:21)
[2018-10-10] MEDS: SPIRONOLACTONE 50 MG TABLET PO SCH (09:21)
[2018-10-10] MEDS: DILTIAZEM CD 180 MG CAPSULE PO SCH ×2 (09:22→21:07)
[2018-10-10] MEDS: APIXABAN 2.5 MG TABLET PO SCH ×2 (09:22→21:08)
[2018-10-10] MEDS: ASCORBIC ACID 500 MG TABLET PO SCH (09:22)
[2018-10-10] MEDS: FERROUS SULFATE 325 MG TABLET PO SCH ×2 (09:22→21:08)
[2018-10-10] MEDS: ALPRAZolam 0.25 MG TABLET PO PRN ×2 (09:22→21:08)
[2018-10-10] MEDS: predniSONE 20 MG TABLET PO SCH (09:22)
[2018-10-10] MEDS: MAGNESIUM GLUCONATE 500 MG TABLET PO SCH (09:22)
[2018-10-10] MEDS: PANTOPRAZOLE 40 MG TABLET PO SCH (09:22)
[2018-10-10] MEDS: AMITRIPTYLINE 25 MG TABLET PO SCH (21:08)
[2018-10-10] MEDS: MONTELUKAST 10 MG TABLET PO SCH (21:08)
[2018-10-10] MEDS: ZALEPLON 5 MG CAPSULE PO SCH (21:08)
[2018-10-11] MEDS: ALBUTEROL/IPRATROPIUM 3 ML NEB RESP TX SCH ×2 (00:52→07:20)
[2018-10-11 08:11] LABS: Calcium 8.3 MG/DL (8.5-10.1); Osmolality,Calculated 281.8 MOS/KG (273-304)
[2018-10-11 08:52] LABS: Basophils % 0.1 % (0.0-0.8); Hematocrit 30.9 VOL% (35.7-47.0); Immature Granulocytes % 1.9 %; Immature Granulocytes Absolute 0.32 #; Lymphocytes # 0.8 10*3/uL (1.4-4.0); Lymphocytes % 4.9 % (21.3-54.2); Mean Corpuscular HGB Conc 27.8 GM/DL (32-36); Mean Corpuscular Volume 82.8 FL (87-102); Mean Platelet Volume 9.8 FL (9.6-12.0); Monocytes % 5.9 % (1.7-12.7); NRBC # 0.03 10*3/uL; Neutrophils % 87.2 % (38.7-73.9); Platelet Count 221 T/CUMM (130-400); Red Blood Count 3.73 MC/CUMM (3.8-5.5); Red Cell Distribution Width 18.3 % (9.3-17.3); White Blood Count 16.4 T/CUMM (4-12)
[2018-10-11 08:53] LABS: Hemoglobin 8.6 GM/DL (12.0-16.0)
[2018-10-11 08:57] LABS: Hypochromasia 1+; Lymphocytes 6 % (20-55); Nucleated Red Blood Cells 1 (0-5); Ovalocytes Slight; Platelet Estimate Adequate; Segmented Neutrophils 91 % (50-85); Total Cells Counted 100
[2018-10-11] MEDS: FUROSEMIDE 40 MG TABLET PO SCH (09:03)
[2018-10-11] MEDS: ASCORBIC ACID 500 MG TABLET PO SCH (09:03)
[2018-10-11] MEDS: MAGNESIUM GLUCONATE 500 MG TABLET PO SCH (09:03)
[2018-10-11] MEDS: SPIRONOLACTONE 50 MG TABLET PO SCH (09:03)
[2018-10-11] MEDS: CHOLECALCIFEROL 400 UNIT TABLET PO SCH (09:04)
[2018-10-11] MEDS: APIXABAN 2.5 MG TABLET PO SCH (09:04)
[2018-10-11] MEDS: predniSONE 20 MG TABLET PO SCH (09:04)
[2018-10-11] MEDS: FERROUS SULFATE 325 MG TABLET PO SCH (09:04)
[2018-10-11] MEDS: DILTIAZEM CD 180 MG CAPSULE PO SCH (09:04)
[2018-10-11] MEDS: PANTOPRAZOLE 40 MG TABLET PO SCH (09:05)
[2018-10-11] MEDS: DOCUSATE SODIUM 100 MG CAPSULE PO SCH (09:05)
[2018-10-11] MEDS: ALPRAZolam 0.25 MG TABLET PO PRN (09:09)
[2018-10-11 12:46] VITALS: BP 103/58
== END 2018-10-11 12:37 | disposition home or self-care (01) | DRG 190 ==
LOC: N.ED 13:17 → N.EDINP 15:50 → SUATTDRO 15:50 → N.4E 16:41
PROVIDERS: ADMIT Hospitalist; ATTEND Internal Medicine

== ENCOUNTER 2018-10-20 17:59 | Observation (INO) ==
[2018-10-20] MEDS ORDERED: ALBUTEROL/IPRATROPIUM 3 ML NEB RESP TX STA (18:21)
[2018-10-20] MEDS ORDERED: methylPREDNISolone SOD SUC 125 MG/2 ML VIAL IV STA (18:21)
[2018-10-20 18:56] LABS: ABG Base Excess 11.9 MMOL/L (-2.5-2.5); ABG HCO3 35.6 MMOL/L (20-26); ABG Oxygen Saturation 92.5 % (95-100); ABG PCO2 59.5 MM HG (35-48); ABG PH 7.419 (7.35-7.45); ABG TCO2 35.4 MMOL/L (23-27)
[2018-10-20 19:14] LABS: Basophils % 0.2 % (0.0-0.8); Eosinophils # 0.1 10*3/uL (0.0-0.87); Eosinophils % 0.9 % (0.00-10.9); Hematocrit 34.4 VOL% (35.7-47.0); Hemoglobin 9.2 GM/DL (12.0-16.0); Immature Granulocytes % 0.7 %; Immature Granulocytes Absolute 0.07 #; Lymphocytes % 9.8 % (21.3-54.2); Mean Corpuscular HGB Conc 26.7 GM/DL (32-36); Mean Corpuscular Volume 84.5 FL (87-102); Mean Platelet Volume 9.3 FL (9.6-12.0); Monocytes % 8.9 % (1.7-12.7); Neutrophils % 79.5 % (38.7-73.9); Platelet Count 192 T/CUMM (130-400); Red Blood Count 4.07 MC/CUMM (3.8-5.5); Red Cell Distribution Width 17.8 % (9.3-17.3); White Blood Count 10.3 T/CUMM (4-12)
[2018-10-20 19:40] LABS: Anisocytosis 1+; Elliptocytes Few; Hypochromasia 1+; Polychromasia Few
[2018-10-20 19:41] LABS: Platelet Estimate Adequate; Stomatocytes Few
[2018-10-20 19:43] LABS: Albumin 3.7 G/DL (3.4-5.0); Bilirubin,Total 0.5 MG/DL (0.2-1.0); Calcium 9.1 MG/DL (8.5-10.1); Osmolality,Calculated 270.8 MOS/KG (273-304); Total Protein 6.9 G/DL (6.4-8.3)
[2018-10-20 19:53] LABS: Apearance,Urine Slightly Hazy (Clear); Bacteria,Urine Occasional /HPF (Few); Bilirubin,Urine Negative (Negative); Blood, Urine Negative (Negative); Glucose,Urine (UA) Negative (Negative); Ketones,Urine Negative (Negative); Mucus,Urine Occasional /LPF (Occasional); Nitrite,Urine Negative (Negative); Protein,Urine Negative; RBC,Urine 11 /HPF (0-4); Squamous Epithelial Cell,Urine Moderate /HPF (0-10); Urine Color Yellow (Yellow); Urine Specific Gravity 1.014 (1.001-1.035); WBC,Urine 223 /HPF (0-6)
[2018-10-20] MEDS ORDERED: cefTRIAXone 1,000 MG in SODIUM CHLORIDE 0.9% 100 ML IV STA (20:25)
[2018-10-20] MEDS ORDERED: FUROSEMIDE 100 MG/10 ML VIAL IV STA (20:25)
[2018-10-20] MEDS ORDERED: FUROSEMIDE 40 MG/4 ML VIAL ONE (20:30)
[2018-10-20] MEDS ORDERED: ACETAMINOPHEN 325 MG TABLET PO PRN (22:23)
[2018-10-20] MEDS ORDERED: ALBUTEROL/IPRATROPIUM 3 ML NEB RESP TX PRN (23:00)
[2018-10-21] MEDS: MONTELUKAST 10 MG TABLET PO SCH ×2 (00:20→21:16)
[2018-10-21] MEDS: ZALEPLON 5 MG CAPSULE PO SCH ×2 (00:20→21:14)
[2018-10-21] MEDS: AMITRIPTYLINE 25 MG TABLET PO SCH ×2 (00:20→21:16)
[2018-10-21] MEDS: FERROUS SULFATE 325 MG TABLET PO SCH ×3 (00:20→21:16)
[2018-10-21] MEDS: APIXABAN 2.5 MG TABLET PO SCH ×3 (00:20→21:16)
[2018-10-21] MEDS: ALBUTEROL/IPRATROPIUM 3 ML NEB RESP TX SCH ×4 (01:05→19:20)
[2018-10-21] MEDS: DILTIAZEM CD 180 MG CAPSULE PO SCH ×3 (01:40→21:16)
[2018-10-21 05:36] LABS: Calcium 8.6 MG/DL (8.5-10.1)
[2018-10-21 05:47] LABS: Basophils % 0.1 % (0.0-0.8); Hematocrit 32.5 VOL% (35.7-47.0); Hemoglobin 9.1 GM/DL (12.0-16.0); Immature Granulocytes % 0.7 %; Immature Granulocytes Absolute 0.06 #; Lymphocytes # 0.3 10*3/uL (1.4-4.0); Lymphocytes % 3.7 % (21.3-54.2); Mean Corpuscular Volume 82.1 FL (87-102); Mean Platelet Volume 9.6 FL (9.6-12.0); Monocytes % 0.8 % (1.7-12.7); Neutrophils % 94.7 % (38.7-73.9); Platelet Count 163 T/CUMM (130-400); Red Blood Count 3.96 MC/CUMM (3.8-5.5); Red Cell Distribution Width 17.7 % (9.3-17.3); White Blood Count 8.4 T/CUMM (4-12)
[2018-10-21 06:11] LABS: Band Neutrophils 1 % (0-10); Hypochromasia 1+; Lymphocytes 2 % (20-55); Microcytosis 1+; Segmented Neutrophils 96 % (50-85); Total Cells Counted 100
[2018-10-21 06:12] LABS: Ovalocytes Slight; Polychromasia Slight
[2018-10-21 06:13] LABS: Platelet Estimate Adequate
[2018-10-21] MEDS ORDERED: FUROSEMIDE 40 MG/4 ML VIAL IV SCH (08:00)
[2018-10-21] MEDS ORDERED: DEXTROSE 50% 25 GM/50 ML VIAL IV PRN (08:04)
[2018-10-21] MEDS ORDERED: GLUCAGON 1 MG VIAL IM PRN (08:04)
[2018-10-21 08:36] LABS: Risk Ratio 3.55; Thyroid Stimulating Hormone 0.383 uIU/ml (0.358-3.74); VLDL CHOLESTEROL 14.4 MG/DL
[2018-10-21 08:45] LABS: Troponin I < 0.015 NG/ML (0.00-0.045)
[2018-10-21 09:15] LABS: Troponin I < 0.015 NG/ML (0.00-0.045)
[2018-10-21] MEDS: predniSONE 20 MG TABLET PO SCH (09:19)
[2018-10-21] MEDS: CHOLECALCIFEROL 400 UNIT TABLET PO SCH (09:19)
[2018-10-21] MEDS: PANTOPRAZOLE 40 MG TABLET PO SCH (09:19)
[2018-10-21] MEDS: MAGNESIUM OXIDE 400 MG TABLET PO SCH (09:19)
[2018-10-21] MEDS: DOCUSATE SODIUM 100 MG CAPSULE PO SCH ×3 (09:20→21:17)
[2018-10-21] MEDS: INSULIN REGULAR 100 UNIT/ML SUBCUT SCH ×3 (12:13→21:17)
[2018-10-21] MEDS: ASCORBIC ACID 500 MG TABLET PO SCH (12:14)
[2018-10-21] MEDS ORDERED: cefTRIAXone 1,000 MG in SYRINGE 1 EACH IV SCH (20:00)
[2018-10-21] MEDS ORDERED: ACETAMINOPHEN 325 MG TABLET PO SCH (21:00)
[2018-10-22] MEDS: ALBUTEROL/IPRATROPIUM 3 ML NEB RESP TX SCH ×2 (00:20→07:54)
[2018-10-22 04:34] LABS: Calcium 8.7 MG/DL (8.5-10.1)
[2018-10-22 04:45] LABS: Basophils % 0.1 % (0.0-0.8); Hemoglobin 8.7 GM/DL (12.0-16.0); Immature Granulocytes % 0.6 %; Immature Granulocytes Absolute 0.08 #; Lymphocytes # 0.5 10*3/uL (1.4-4.0); Lymphocytes % 3.9 % (21.3-54.2); Mean Corpuscular HGB Conc 27.6 GM/DL (32-36); Mean Corpuscular Volume 83.1 FL (87-102); Mean Platelet Volume 9.4 FL (9.6-12.0); Monocytes % 5.4 % (1.7-12.7); Platelet Count 180 T/CUMM (130-400); Red Blood Count 3.79 MC/CUMM (3.8-5.5); Red Cell Distribution Width 17.4 % (9.3-17.3); White Blood Count 13.9 T/CUMM (4-12)
[2018-10-22 04:49] LABS: Hematocrit 31.5 VOL% (35.7-47.0)
[2018-10-22 05:11] LABS: Hypochromasia 1+; Lymphocytes 1 % (20-55); Microcytosis 1+; Myelocytes 2 %; Platelet Estimate Adequate; Polychromasia Few; Segmented Neutrophils 94 % (50-85); Total Cells Counted 100
[2018-10-22] MEDS ORDERED: FUROSEMIDE 40 MG/4 ML VIAL IV SCH (09:00)
[2018-10-22] MEDS ORDERED: FUROSEMIDE 40 MG TABLET PO SCH (09:00)
[2018-10-22] MEDS: DILTIAZEM CD 180 MG CAPSULE PO SCH (09:04)
[2018-10-22] MEDS: predniSONE 20 MG TABLET PO SCH (09:05)
[2018-10-22] MEDS: CHOLECALCIFEROL 400 UNIT TABLET PO SCH (09:05)
[2018-10-22] MEDS: MAGNESIUM OXIDE 400 MG TABLET PO SCH (09:05)
[2018-10-22] MEDS: APIXABAN 2.5 MG TABLET PO SCH (09:05)
[2018-10-22] MEDS: PANTOPRAZOLE 40 MG TABLET PO SCH (09:05)
[2018-10-22] MEDS: DOCUSATE SODIUM 100 MG CAPSULE PO SCH (09:05)
[2018-10-22] MEDS: ASCORBIC ACID 500 MG TABLET PO SCH (09:05)
[2018-10-22] MEDS: FERROUS SULFATE 325 MG TABLET PO SCH (09:05)
[2018-10-22] MEDS: INSULIN REGULAR 100 UNIT/ML SUBCUT SCH (09:06)
[2018-10-22] MEDS ORDERED: DILTIAZEM 60 MG TABLET PO ONE (09:34)
[2018-10-22 12:09] VITALS: BP 106/62
== END 2018-10-22 12:23 | disposition home health service (06) ==
LOC: EDBD → EDUNIT# → N.ED 17:59 → N.EDINP 17:59 → N.5E 22:08
PROVIDERS: ADMIT Internal Medicine; ATTEND Internal Medicine

== ENCOUNTER 2019-04-25 09:54 | Inpatient (IN) ==
[2019-04-25] MEDS ORDERED: ONDANSETRON 4 MG/2 ML VIAL IV STA (10:20)
[2019-04-25] MEDS ORDERED: cefTRIAXone 1,000 MG in SODIUM CHLORIDE 0.9% 100 ML IV STA (10:20)
[2019-04-25] MEDS ORDERED: FUROSEMIDE 100 MG/10 ML VIAL IV STA (10:20)
[2019-04-25] MEDS ORDERED: MORPHINE 4 MG/1 ML VIAL IV STA (10:20)
[2019-04-25] MEDS ORDERED: methylPREDNISolone SOD SUC 125 MG/2 ML VIAL IV STA (10:20)
[2019-04-25] MEDS ORDERED: ALBUTEROL 2.5 MG/3 ML NEB RESP TX SCH (10:30)
[2019-04-25 10:43] LABS: Basophils # 0.1 10*3/uL (0.0-0.2); Basophils % 0.6 % (0.0-0.8); Eosinophils # 0.2 10*3/uL (0.0-0.87); Eosinophils % 2.1 % (0.00-10.9); Hematocrit 28.8 VOL% (35.7-47.0); Hemoglobin 8.6 GM/DL (12.0-16.0); Immature Granulocytes % 0.5 %; Immature Granulocytes Absolute 0.04 #; Lymphocytes % 11.3 % (21.3-54.2); Mean Corpuscular HGB Conc 29.9 GM/DL (32-36); Mean Corpuscular Volume 79.6 FL (87-102); Mean Platelet Volume 10.8 FL (9.6-12.0); Monocytes % 9.7 % (1.7-12.7); Neutrophils % 75.8 % (38.7-73.9); Platelet Count 215 T/CUMM (130-400); Red Blood Count 3.62 MC/CUMM (3.8-5.5); White Blood Count 8.4 T/CUMM (4-12)
[2019-04-25 10:48] LABS: ABG HCO3 32.8 MMOL/L (20-26); ABG PCO2 51.4 MM HG (35-48); ABG PH 7.436 (7.35-7.45); ABG TCO2 32.1 MMOL/L (23-27)
[2019-04-25 10:49] LABS: INR 1.1; PT Patient Result 11.7 SECS (9.6-12.2)
[2019-04-25 10:59] LABS: Hypochromasia 1+; Ovalocytes Slight; Platelet Estimate Adequate
[2019-04-25 11:00] LABS: Microcytosis 1+
[2019-04-25 11:03] LABS: Albumin 3.4 G/DL (3.4-5.0); Bilirubin,Total 0.6 MG/DL (0.2-1.0); Calcium 8.4 MG/DL (8.5-10.1); Osmolality,Calculated 267.4 MOS/KG (273-304); Total Protein 6.9 G/DL (6.4-8.3)
[2019-04-25 11:11] LABS: Apearance,Urine CLEAR (Clear); Bilirubin,Urine Negative (Negative); Blood, Urine Negative (Negative); Glucose,Urine (UA) 50 mg/dL (Negative); Ketones,Urine Negative (Negative); Mucus,Urine Occasional /LPF (Occasional); Nitrite,Urine Negative (Negative); Protein,Urine Negative; RBC,Urine 2 /HPF (0-4); Urine Color Yellow (Yellow); Urine Specific Gravity 1.018 (1.001-1.035); WBC,Urine 1 /HPF (0-6)
[2019-04-25] MEDS ORDERED: ACETAMINOPHEN 325 MG TABLET PO PRN (13:10)
[2019-04-25] MEDS ORDERED: ONDANSETRON 4 MG/2 ML VIAL IV PRN (13:10)
[2019-04-25] MEDS ORDERED: guaiFENesin/DM ER 600-30 MG TABLET PO PRN (13:10)
[2019-04-25] MEDS ORDERED: methylPREDNISolone SOD SUC 40 MG/1 ML VIAL IV SCH (13:30)
[2019-04-25] MEDS ORDERED: SODIUM CHLORIDE 0.9% 100 ML IV ONE (14:20)
[2019-04-25] MEDS: cefTRIAXone 1,000 MG in SYRINGE 1 EACH IV SCH (14:29)
[2019-04-25] MEDS: methylPREDNISolone SOD SUC 40 MG/1 ML VIAL IV SCH ×2 (14:31→20:54)
[2019-04-25] MEDS: AZITHROMYCIN INJ 500 MG in SODIUM CHLORIDE 0.9% 250 ML IV SCH (15:15)
[2019-04-25] MEDS: DOCUSATE SODIUM 100 MG CAPSULE PO SCH ×2 (15:42→20:51)
[2019-04-25] MEDS: ALBUTEROL/IPRATROPIUM 3 ML NEB RESP TX SCH (19:15)
[2019-04-25] MEDS: ACETAMINOPHEN 500 MG TABLET PO SCH (20:51)
[2019-04-25] MEDS: MONTELUKAST 10 MG TABLET PO SCH (20:52)
[2019-04-25] MEDS: AMITRIPTYLINE 25 MG TABLET PO SCH (20:52)
[2019-04-25] MEDS: APIXABAN 2.5 MG TABLET PO SCH (20:52)
[2019-04-25] MEDS: DILTIAZEM CD 180 MG CAPSULE PO SCH (20:52)
[2019-04-25] MEDS: ZALEPLON 5 MG CAPSULE PO PRN (21:02)
[2019-04-26] MEDS: ALBUTEROL/IPRATROPIUM 3 ML NEB RESP TX SCH ×4 (01:00→19:11)
[2019-04-26 05:39] LABS: Hematocrit 26.5 VOL% (35.7-47.0); Hemoglobin 7.7 GM/DL (12.0-16.0); Immature Granulocytes % 0.8 %; Immature Granulocytes Absolute 0.05 #; Lymphocytes # 0.4 10*3/uL (1.4-4.0); Lymphocytes % 5.7 % (21.3-54.2); Mean Corpuscular HGB Conc 29.1 GM/DL (32-36); Mean Corpuscular Volume 79.8 FL (87-102); Mean Platelet Volume 10.3 FL (9.6-12.0); Monocytes % 1.1 % (1.7-12.7); NRBC # 0.02 10*3/uL; Neutrophils % 92.4 % (38.7-73.9); Platelet Count 237 T/CUMM (130-400); Red Blood Count 3.32 MC/CUMM (3.8-5.5); Red Cell Distribution Width 16.9 % (9.3-17.3); White Blood Count 6.4 T/CUMM (4-12)
[2019-04-26 05:45] LABS: Calcium 8.2 MG/DL (8.5-10.1); Osmolality,Calculated 270.8 MOS/KG (273-304)
[2019-04-26] MEDS: methylPREDNISolone SOD SUC 40 MG/1 ML VIAL IV SCH ×3 (06:08→21:27)
[2019-04-26 07:26] LABS: Band Neutrophils 1 % (0-10); Lymphocytes 4 % (20-55); Platelet Estimate Normal; Segmented Neutrophils 94 % (50-85); Total Cells Counted 100
[2019-04-26 07:27] LABS: Microcytosis 2+
[2019-04-26 07:28] LABS: Ovalocytes Few; Stomatocytes Slight; Target Cells Slight
[2019-04-26 07:29] LABS: Hypochromasia 1+; Polychromasia 1+
[2019-04-26] MEDS: SPIRONOLACTONE 50 MG TABLET PO SCH (08:58)
[2019-04-26] MEDS: PANTOPRAZOLE 40 MG TABLET PO SCH (08:58)
[2019-04-26] MEDS: CHOLECALCIFEROL 400 UNIT TABLET PO SCH (08:58)
[2019-04-26] MEDS: DILTIAZEM CD 180 MG CAPSULE PO SCH ×2 (08:58→21:26)
[2019-04-26] MEDS: ASCORBIC ACID 500 MG TABLET PO SCH (08:59)
[2019-04-26] MEDS: APIXABAN 2.5 MG TABLET PO SCH ×2 (08:59→21:26)
[2019-04-26] MEDS: FERROUS SULFATE 325 MG TABLET PO SCH (08:59)
[2019-04-26] MEDS: DOCUSATE SODIUM 100 MG CAPSULE PO SCH ×3 (08:59→21:25)
[2019-04-26] MEDS: FUROSEMIDE 40 MG/4 ML VIAL IV SCH (08:59)
[2019-04-26] MEDS: MAGNESIUM GLUCONATE 500 MG TABLET PO SCH (08:59)
[2019-04-26] MEDS ORDERED: [UNRECOGNIZED DRUG - OTHER] INH SCH (09:00)
[2019-04-26] MEDS ORDERED: SODIUM CHLORIDE 0.9% 1,000 ML IV PRN (12:09)
[2019-04-26] MEDS: cefTRIAXone 1,000 MG in SYRINGE 1 EACH IV SCH (15:20)
[2019-04-26] MEDS: AZITHROMYCIN INJ 500 MG in SODIUM CHLORIDE 0.9% 250 ML IV SCH (15:22)
[2019-04-26] MEDS: BUDESONIDE 0.5 MG/2 ML NEB RESP TX SCH (19:11)
[2019-04-26 20:58] LABS: Hemoglobin 8.4 GM/DL (12.0-16.0)
[2019-04-26] MEDS: AMITRIPTYLINE 25 MG TABLET PO SCH (21:25)
[2019-04-26] MEDS: ACETAMINOPHEN 500 MG TABLET PO SCH (21:25)
[2019-04-26] MEDS: MONTELUKAST 10 MG TABLET PO SCH (21:26)
[2019-04-26] MEDS: ZALEPLON 5 MG CAPSULE PO PRN (21:32)
[2019-04-27] MEDS: ALBUTEROL/IPRATROPIUM 3 ML NEB RESP TX SCH ×4 (00:06→20:03)
[2019-04-27] MEDS: ACETYLCYSTEINE 20% 800 MG/4 ML VIAL RESP TX SCH ×3 (00:06→13:45)
[2019-04-27] MEDS: methylPREDNISolone SOD SUC 40 MG/1 ML VIAL IV SCH ×2 (04:53→16:03)
[2019-04-27 06:54] LABS: Basophils % 0.1 % (0.0-0.8); Hematocrit 28.5 VOL% (35.7-47.0); Hemoglobin 8.6 GM/DL (12.0-16.0); Immature Granulocytes % 0.8 %; Lymphocytes # 0.4 10*3/uL (1.4-4.0); Lymphocytes % 2.7 % (21.3-54.2); Mean Corpuscular HGB Conc 30.2 GM/DL (32-36); Mean Corpuscular Volume 80.5 FL (87-102); Monocytes % 2.5 % (1.7-12.7); NRBC # 0.06 10*3/uL; Neutrophils % 93.9 % (38.7-73.9); Platelet Count 296 T/CUMM (130-400); Red Blood Count 3.54 MC/CUMM (3.8-5.5); Red Cell Distribution Width 17.2 % (9.3-17.3)
[2019-04-27 07:10] LABS: Calcium 8.5 MG/DL (8.5-10.1); Osmolality,Calculated 270.8 MOS/KG (273-304)
[2019-04-27] MEDS: BUDESONIDE 0.5 MG/2 ML NEB RESP TX SCH ×2 (08:01→20:03)
[2019-04-27] MEDS: ASCORBIC ACID 500 MG TABLET PO SCH (08:34)
[2019-04-27] MEDS: FUROSEMIDE 40 MG/4 ML VIAL IV SCH (08:34)
[2019-04-27] MEDS: SPIRONOLACTONE 50 MG TABLET PO SCH (08:34)
[2019-04-27] MEDS: MAGNESIUM GLUCONATE 500 MG TABLET PO SCH (08:35)
[2019-04-27] MEDS: FERROUS SULFATE 325 MG TABLET PO SCH (08:35)
[2019-04-27] MEDS: APIXABAN 2.5 MG TABLET PO SCH ×2 (08:35→20:45)
[2019-04-27] MEDS: DILTIAZEM CD 180 MG CAPSULE PO SCH ×2 (08:35→20:45)
[2019-04-27] MEDS: PANTOPRAZOLE 40 MG TABLET PO SCH (08:36)
[2019-04-27] MEDS: CHOLECALCIFEROL 400 UNIT TABLET PO SCH (08:36)
[2019-04-27] MEDS: DOCUSATE SODIUM 100 MG CAPSULE PO SCH ×3 (08:36→20:44)
[2019-04-27 10:28] LABS: Band Neutrophils 9 % (0-10); Lymphocytes 6 % (20-55); Platelet Estimate Normal; Segmented Neutrophils 82 % (50-85); Total Cells Counted 100
[2019-04-27 10:29] LABS: Anisocytosis 2+; Macrocytosis Slight
[2019-04-27] MEDS: POLYETHYLENE GLYCOL POWDER 17 GM PACK PO SCH (10:58)
[2019-04-27] MEDS: cefTRIAXone 1,000 MG in SYRINGE 1 EACH IV SCH (16:03)
[2019-04-27] MEDS: AZITHROMYCIN INJ 500 MG in SODIUM CHLORIDE 0.9% 250 ML IV SCH (16:03)
[2019-04-27] MEDS: MONTELUKAST 10 MG TABLET PO SCH (20:44)
[2019-04-27] MEDS: ZALEPLON 5 MG CAPSULE PO PRN (20:44)
[2019-04-27] MEDS: ACETAMINOPHEN 500 MG TABLET PO SCH (20:45)
[2019-04-27] MEDS: AMITRIPTYLINE 25 MG TABLET PO SCH (20:45)
[2019-04-28] MEDS: ACETYLCYSTEINE 20% 800 MG/4 ML VIAL RESP TX SCH ×2 (00:18→07:49)
[2019-04-28] MEDS: ALBUTEROL/IPRATROPIUM 3 ML NEB RESP TX SCH ×2 (00:18→07:49)
[2019-04-28] MEDS: methylPREDNISolone SOD SUC 40 MG/1 ML VIAL IV SCH (00:46)
[2019-04-28] MEDS: BUDESONIDE 0.5 MG/2 ML NEB RESP TX SCH (07:49)
[2019-04-28] MEDS: DILTIAZEM CD 180 MG CAPSULE PO SCH (09:33)
[2019-04-28] MEDS: PANTOPRAZOLE 40 MG TABLET PO SCH (09:33)
[2019-04-28] MEDS: SPIRONOLACTONE 50 MG TABLET PO SCH (09:33)
[2019-04-28] MEDS: MAGNESIUM GLUCONATE 500 MG TABLET PO SCH (09:33)
[2019-04-28] MEDS: FERROUS SULFATE 325 MG TABLET PO SCH (09:33)
[2019-04-28] MEDS: DOCUSATE SODIUM 100 MG CAPSULE PO SCH (09:33)
[2019-04-28] MEDS: ASCORBIC ACID 500 MG TABLET PO SCH (09:33)
[2019-04-28] MEDS: APIXABAN 2.5 MG TABLET PO SCH (09:33)
[2019-04-28] MEDS: POLYETHYLENE GLYCOL POWDER 17 GM PACK PO SCH (09:34)
[2019-04-28] MEDS: CHOLECALCIFEROL 400 UNIT TABLET PO SCH (09:34)
[2019-04-28 10:03] LABS: Basophils % 0.1 % (0.0-0.8); Eosinophils % 0.1 % (0.00-10.9); Hematocrit 30.3 VOL% (35.7-47.0); Hemoglobin 8.9 GM/DL (12.0-16.0); Immature Granulocytes % 0.7 %; Immature Granulocytes Absolute 0.08 #; Lymphocytes # 0.3 10*3/uL (1.4-4.0); Lymphocytes % 2.3 % (21.3-54.2); Mean Corpuscular HGB Conc 29.4 GM/DL (32-36); Mean Corpuscular Volume 82.1 FL (87-102); Mean Platelet Volume 9.9 FL (9.6-12.0); Monocytes % 3.5 % (1.7-12.7); NRBC # 0.05 10*3/uL; Neutrophils % 93.3 % (38.7-73.9); Platelet Count 300 T/CUMM (130-400); Red Blood Count 3.69 MC/CUMM (3.8-5.5); Red Cell Distribution Width 17.4 % (9.3-17.3); White Blood Count 10.9 T/CUMM (4-12)
[2019-04-28 10:12] LABS: Hypochromasia 1+; Lymphocytes 5 % (20-55); Ovalocytes Slight; Platelet Estimate Adequate; Segmented Neutrophils 92 % (50-85); Total Cells Counted 100
[2019-04-28 11:43] VITALS: BP 121/60
[2019-04-29] MEDS ORDERED: methylPREDNISolone SOD SUC 40 MG/1 ML VIAL IV SCH (09:00)
== END 2019-04-28 16:07 | disposition home health service (06) | DRG 190 ==
LOC: N.ED 09:54 → N.EDINP 13:10 → N.5E 15:13
PROVIDERS: ADMIT Internal Medicine; ATTEND Internal Medicine

== ENCOUNTER 2019-04-30 07:08 | Observation (INO) ==
[2019-04-30] MEDS ORDERED: ALBUTEROL 2.5 MG/3 ML NEB RESP TX STA (07:19)
[2019-04-30 07:50] LABS: ABG Base Excess 9.6 MMOL/L (-2.5-2.5); ABG HCO3 33.3 MMOL/L (20-26); ABG Oxygen Saturation 96.9 % (95-100); ABG PH 7.323 (7.35-7.45); ABG PO2 83.2 MM HG (80-95); ABG TCO2 35.2 MMOL/L (23-27)
[2019-04-30 07:51] LABS: Allen Test Positive
[2019-04-30] MEDS ORDERED: FUROSEMIDE 40 MG/4 ML VIAL IV STA (08:02)
[2019-04-30 08:12] LABS: Basophils % 0.1 % (0.0-0.8); Eosinophils # 0.1 10*3/uL (0.0-0.87); Eosinophils % 0.9 % (0.00-10.9); Hematocrit 33.2 VOL% (35.7-47.0); Hemoglobin 9.3 GM/DL (12.0-16.0); Immature Granulocytes Absolute 0.12 #; Lymphocytes # 0.8 10*3/uL (1.4-4.0); Lymphocytes % 6.4 % (21.3-54.2); Mean Corpuscular Volume 84.5 FL (87-102); Mean Platelet Volume 9.1 FL (9.6-12.0); Monocytes % 11.1 % (1.7-12.7); NRBC # 0.07 10*3/uL; Neutrophils % 80.5 % (38.7-73.9); Platelet Count 285 T/CUMM (130-400); Red Blood Count 3.93 MC/CUMM (3.8-5.5); Red Cell Distribution Width 17.4 % (9.3-17.3); White Blood Count 11.7 T/CUMM (4-12)
[2019-04-30 08:22] LABS: PT Patient Result 10.9 SECS (9.6-12.2); Partial Thromboplastin Time 22.6 SECS (20.8-36.0)
[2019-04-30 08:34] LABS: Albumin 3.6 G/DL (3.4-5.0); Bilirubin,Total 0.6 MG/DL (0.2-1.0); Calcium 8.3 MG/DL (8.5-10.1); Osmolality,Calculated 271.4 MOS/KG (273-304); Total Protein 6.8 G/DL (6.4-8.3)
[2019-04-30 08:42] LABS: Hypochromasia 1+; Platelet Estimate Adequate
[2019-04-30 08:47] LABS: Apearance,Urine CLEAR (Clear); Bacteria,Urine Occasional /HPF (Few); Bilirubin,Urine Negative (Negative); Blood, Urine Negative (Negative); Glucose,Urine (UA) Negative (Negative); Ketones,Urine Negative (Negative); Mucus,Urine Occasional /LPF (Occasional); Nitrite,Urine Negative (Negative); Protein,Urine Negative; RBC,Urine 1 /HPF (0-4); Squamous Epithelial Cell,Urine Few /HPF (0-10); Urine Color Yellow (Yellow); Urine Specific Gravity 1.019 (1.001-1.035); WBC,Urine 2 /HPF (0-6)
[2019-04-30 09:01] LABS: ABG PCO2 73.5 MM HG (35-48)
[2019-04-30 09:11] LABS: Apearance,Urine CLEAR (Clear); Bacteria,Urine Occasional /HPF (Few); Bilirubin,Urine Negative (Negative); Blood, Urine Negative (Negative); Glucose,Urine (UA) Negative (Negative); Ketones,Urine Negative (Negative); Mucus,Urine Occasional /LPF (Occasional); Nitrite,Urine Negative (Negative); Protein,Urine Negative; RBC,Urine 1 /HPF (0-4); Urine Color Yellow (Yellow); Urine Specific Gravity 1.012 (1.001-1.035); WBC,Urine <1 /HPF (0-6)
[2019-04-30] MEDS ORDERED: POTASSIUM CHLORIDE RIDER 10 MEQ in PREMIX 1 EACH IV PRN (10:24)
[2019-04-30] MEDS ORDERED: ALBUTEROL 2.5 MG/3 ML NEB RESP TX PRN (10:24)
[2019-04-30] MEDS ORDERED: MAGNESIUM SULF RIDER 4 GM in PREMIX 1 EACH IV PRN (10:24)
[2019-04-30] MEDS ORDERED: MAGNESIUM SULF RIDER 2 GM in PREMIX 1 EACH IV PRN (10:24)
[2019-04-30] MEDS ORDERED: cefTRIAXone 1,000 MG VIAL ONE (10:30)
[2019-04-30] MEDS ORDERED: AZITHROMYCIN INJ 500 MG in SODIUM CHLORIDE 0.9% 250 ML IV SCH (10:30)
[2019-04-30] MEDS ORDERED: ALBUTEROL/IPRATROPIUM 3 ML NEB RESP TX PRN (10:37)
[2019-04-30] MEDS: cefTRIAXone 1,000 MG in SYRINGE 1 EACH IV SCH (10:39)
[2019-04-30] MEDS: ALBUTEROL/IPRATROPIUM 3 ML NEB RESP TX SCH ×2 (12:01→20:20)
[2019-04-30] MEDS: methylPREDNISolone SOD SUC 40 MG/1 ML VIAL IV SCH ×2 (12:20→17:42)
[2019-04-30] MEDS: AZITHROMYCIN INJ 500 MG in SODIUM CHLORIDE 0.9% 250 ML IV SCH (13:18)
[2019-04-30] MEDS ORDERED: FUROSEMIDE 40 MG/4 ML VIAL IV ONE (16:00)
[2019-04-30 16:34] LABS: ABG Base Excess 14.6 MMOL/L (-2.5-2.5); ABG HCO3 38.2 MMOL/L (20-26); ABG Oxygen Saturation 83.3 % (95-100); ABG PCO2 66.2 MM HG (35-48); ABG PH 7.412 (7.35-7.45); ABG TCO2 38.6 MMOL/L (23-27); Allen Test Positive; Pt O2 Delivery Device BIPAP
[2019-04-30] MEDS: DOCUSATE SODIUM 100 MG CAPSULE PO SCH ×2 (16:44→21:11)
[2019-04-30] MEDS: DILTIAZEM CD 180 MG CAPSULE PO SCH (21:08)
[2019-04-30] MEDS: AMITRIPTYLINE 25 MG TABLET PO SCH (21:10)
[2019-04-30] MEDS: ASCORBIC ACID 500 MG TABLET PO SCH (21:10)
[2019-04-30] MEDS: APIXABAN 2.5 MG TABLET PO SCH (21:11)
[2019-04-30] MEDS: ZALEPLON 5 MG CAPSULE PO SCH (21:11)
[2019-04-30] MEDS: MONTELUKAST 10 MG TABLET PO SCH (21:12)
[2019-05-01] MEDS: ALBUTEROL/IPRATROPIUM 3 ML NEB RESP TX SCH ×4 (01:15→19:37)
[2019-05-01] MEDS: methylPREDNISolone SOD SUC 40 MG/1 ML VIAL IV SCH ×4 (02:22→19:59)
[2019-05-01 05:22] LABS: Hematocrit 32.1 VOL% (35.7-47.0); Immature Granulocytes % 0.9 %; Immature Granulocytes Absolute 0.06 #; Lymphocytes # 0.3 10*3/uL (1.4-4.0); Lymphocytes % 4.9 % (21.3-54.2); Mean Corpuscular Volume 80.9 FL (87-102); Mean Platelet Volume 9.7 FL (9.6-12.0); Monocytes % 2.2 % (1.7-12.7); NRBC # 0.03 10*3/uL; Platelet Count 267 T/CUMM (130-400); Red Blood Count 3.97 MC/CUMM (3.8-5.5); Red Cell Distribution Width 17.2 % (9.3-17.3); White Blood Count 6.4 T/CUMM (4-12)
[2019-05-01 05:35] LABS: Calcium 8.4 MG/DL (8.5-10.1); Osmolality,Calculated 271.7 MOS/KG (273-304)
[2019-05-01 05:38] LABS: Albumin 3.2 G/DL (3.4-5.0); Bilirubin,Total 1.4 MG/DL (0.2-1.0); Osmolality,Calculated 279.1 MOS/KG (273-304); Total Protein 6.5 G/DL (6.4-8.3)
[2019-05-01 06:11] LABS: Hemoglobin 9.3 GM/DL (12.0-16.0)
[2019-05-01 06:33] LABS: Band Neutrophils 1 % (0-10); Eosinophils 1 % (0-10); Hypochromasia 1+; Lymphocytes 6 % (20-55); Ovalocytes Slight; Platelet Estimate Adequate; Segmented Neutrophils 91 % (50-85); Total Cells Counted 100
[2019-05-01] MEDS ORDERED: SPIRONOLACTONE 25 MG TABLET PO SCH (09:00)
[2019-05-01] MEDS ORDERED: FLUTICASONE UMECLIDIN VILANTER INH SCH (09:00)
[2019-05-01] MEDS ORDERED: ASCORBIC ACID 500 MG TABLET PO SCH (09:00)
[2019-05-01] MEDS ORDERED: FUROSEMIDE 40 MG/4 ML VIAL IV SCH (09:00)
[2019-05-01] MEDS: CHOLECALCIFEROL 400 UNIT TABLET PO SCH (09:05)
[2019-05-01] MEDS: DOCUSATE SODIUM 100 MG CAPSULE PO SCH ×3 (09:05→20:12)
[2019-05-01] MEDS: DILTIAZEM CD 180 MG CAPSULE PO SCH ×2 (09:06→20:13)
[2019-05-01] MEDS: MAGNESIUM GLUCONATE 500 MG TABLET PO SCH (09:06)
[2019-05-01] MEDS: ASCORBIC ACID 500 MG TABLET PO SCH ×2 (09:06→20:12)
[2019-05-01] MEDS: FERROUS SULFATE 325 MG TABLET PO SCH (09:06)
[2019-05-01] MEDS: APIXABAN 2.5 MG TABLET PO SCH ×2 (09:06→20:12)
[2019-05-01] MEDS: FUROSEMIDE 40 MG/4 ML VIAL IV SCH ×3 (09:07→20:05)
[2019-05-01] MEDS: cefTRIAXone 1,000 MG in SYRINGE 1 EACH IV SCH (11:37)
[2019-05-01] MEDS: AZITHROMYCIN INJ 500 MG in SODIUM CHLORIDE 0.9% 250 ML IV SCH (15:53)
[2019-05-01] MEDS: MONTELUKAST 10 MG TABLET PO SCH (20:12)
[2019-05-01] MEDS: AMITRIPTYLINE 25 MG TABLET PO SCH (20:12)
[2019-05-01] MEDS: ZALEPLON 5 MG CAPSULE PO SCH (20:12)
[2019-05-02] MEDS: ALBUTEROL/IPRATROPIUM 3 ML NEB RESP TX SCH ×4 (00:32→19:10)
[2019-05-02] MEDS: methylPREDNISolone SOD SUC 40 MG/1 ML VIAL IV SCH ×3 (01:35→17:37)
[2019-05-02 04:43] LABS: Basophils % 0.1 % (0.0-0.8); Hematocrit 31.6 VOL% (35.7-47.0); Hemoglobin 9.3 GM/DL (12.0-16.0); Immature Granulocytes % 0.6 %; Immature Granulocytes Absolute 0.05 #; Lymphocytes # 0.3 10*3/uL (1.4-4.0); Lymphocytes % 3.6 % (21.3-54.2); Mean Corpuscular HGB Conc 29.4 GM/DL (32-36); Mean Corpuscular Volume 80.2 FL (87-102); Mean Platelet Volume 9.6 FL (9.6-12.0); Monocytes % 1.9 % (1.7-12.7); NRBC # 0.02 10*3/uL; Neutrophils % 93.8 % (38.7-73.9); Platelet Count 260 T/CUMM (130-400); Red Blood Count 3.94 MC/CUMM (3.8-5.5); Red Cell Distribution Width 16.9 % (9.3-17.3); White Blood Count 8.3 T/CUMM (4-12)
[2019-05-02 05:00] LABS: Calcium 8.1 MG/DL (8.5-10.1); Osmolality,Calculated 280.2 MOS/KG (273-304)
[2019-05-02 05:03] LABS: Band Neutrophils 1 % (0-10); Hypochromasia 1+; Lymphocytes 3 % (20-55); Microcytosis 1+; Ovalocytes Few; Segmented Neutrophils 93 % (50-85); Total Cells Counted 100
[2019-05-02 05:04] LABS: Albumin 3.1 G/DL (3.4-5.0); Calcium 8.2 MG/DL (8.5-10.1); Osmolality,Calculated 280.2 MOS/KG (273-304); Platelet Estimate Normal; Total Protein 6.6 G/DL (6.4-8.3)
[2019-05-02] MEDS: DOCUSATE SODIUM 100 MG CAPSULE PO SCH ×3 (09:30→21:50)
[2019-05-02] MEDS: ASCORBIC ACID 500 MG TABLET PO SCH ×2 (09:31→21:50)
[2019-05-02] MEDS: MAGNESIUM GLUCONATE 500 MG TABLET PO SCH (09:31)
[2019-05-02] MEDS: APIXABAN 2.5 MG TABLET PO SCH ×2 (09:31→21:50)
[2019-05-02] MEDS: DILTIAZEM CD 180 MG CAPSULE PO SCH ×2 (09:31→21:50)
[2019-05-02] MEDS: FERROUS SULFATE 325 MG TABLET PO SCH (09:31)
[2019-05-02] MEDS: FUROSEMIDE 40 MG/4 ML VIAL IV SCH (09:32)
[2019-05-02] MEDS: CHOLECALCIFEROL 400 UNIT TABLET PO SCH (09:32)
[2019-05-02] MEDS: cefTRIAXone 1,000 MG in SYRINGE 1 EACH IV SCH (10:57)
[2019-05-02] MEDS: SPIRONOLACTONE 25 MG TABLET PO SCH (12:46)
[2019-05-02] MEDS: AZITHROMYCIN INJ 500 MG in SODIUM CHLORIDE 0.9% 250 ML IV SCH (12:47)
[2019-05-02] MEDS: FUROSEMIDE 80 MG TABLET PO SCH (15:49)
[2019-05-02] MEDS: MONTELUKAST 10 MG TABLET PO SCH (21:50)
[2019-05-02] MEDS: ZALEPLON 5 MG CAPSULE PO SCH (21:50)
[2019-05-02] MEDS: AMITRIPTYLINE 25 MG TABLET PO SCH (21:50)
[2019-05-03] MEDS: ALBUTEROL/IPRATROPIUM 3 ML NEB RESP TX SCH ×4 (00:41→19:19)
[2019-05-03] MEDS: methylPREDNISolone SOD SUC 40 MG/1 ML VIAL IV SCH (02:03)
[2019-05-03 07:46] LABS: Basophils % 0.1 % (0.0-0.8); Calcium 8.5 MG/DL (8.5-10.1); Hematocrit 33.3 VOL% (35.7-47.0); Immature Granulocytes % 0.5 %; Immature Granulocytes Absolute 0.05 #; Lymphocytes # 0.3 10*3/uL (1.4-4.0); Lymphocytes % 3.4 % (21.3-54.2); Mean Corpuscular HGB Conc 28.8 GM/DL (32-36); Mean Corpuscular Volume 81.2 FL (87-102); Mean Platelet Volume 9.6 FL (9.6-12.0); Monocytes % 2.5 % (1.7-12.7); NRBC # 0.02 10*3/uL; Neutrophils % 93.5 % (38.7-73.9); Osmolality,Calculated 276.5 MOS/KG (273-304); Platelet Count 275 T/CUMM (130-400); White Blood Count 9.2 T/CUMM (4-12)
[2019-05-03 07:47] LABS: Hemoglobin 9.6 GM/DL (12.0-16.0)
[2019-05-03 07:48] LABS: Hypochromasia 1+; Lymphocytes 6 % (20-55); Microcytosis 1+; Ovalocytes Slight; Platelet Estimate Adequate; Segmented Neutrophils 93 % (50-85); Total Cells Counted 100
[2019-05-03] MEDS: DOCUSATE SODIUM 100 MG CAPSULE PO SCH ×3 (08:34→21:16)
[2019-05-03] MEDS: CHOLECALCIFEROL 400 UNIT TABLET PO SCH (08:34)
[2019-05-03] MEDS: DILTIAZEM CD 180 MG CAPSULE PO SCH ×2 (08:34→21:17)
[2019-05-03] MEDS: FERROUS SULFATE 325 MG TABLET PO SCH (08:35)
[2019-05-03] MEDS: FUROSEMIDE 80 MG TABLET PO SCH ×2 (08:35→15:01)
[2019-05-03] MEDS: ASCORBIC ACID 500 MG TABLET PO SCH ×2 (08:35→21:17)
[2019-05-03] MEDS: APIXABAN 2.5 MG TABLET PO SCH ×2 (08:35→21:17)
[2019-05-03] MEDS: SPIRONOLACTONE 25 MG TABLET PO SCH (08:36)
[2019-05-03] MEDS: MAGNESIUM GLUCONATE 500 MG TABLET PO SCH (09:25)
[2019-05-03] MEDS: predniSONE 20 MG TABLET PO SCH (09:31)
[2019-05-03] MEDS: cefTRIAXone 1,000 MG in SYRINGE 1 EACH IV SCH (09:32)
[2019-05-03] MEDS: ZALEPLON 5 MG CAPSULE PO SCH (21:17)
[2019-05-03] MEDS: MONTELUKAST 10 MG TABLET PO SCH (21:17)
[2019-05-03] MEDS: AMITRIPTYLINE 25 MG TABLET PO SCH (21:17)
[2019-05-04] MEDS: ALBUTEROL/IPRATROPIUM 3 ML NEB RESP TX SCH ×4 (00:43→19:25)
[2019-05-04 06:18] LABS: Basophils % 0.1 % (0.0-0.8); Immature Granulocytes Absolute 0.11 #; Lymphocytes % 8.7 % (21.3-54.2); Mean Corpuscular HGB Conc 29.4 GM/DL (32-36); Mean Corpuscular Volume 80.2 FL (87-102); Mean Platelet Volume 9.5 FL (9.6-12.0); NRBC # 0.02 10*3/uL; Neutrophils % 81.2 % (38.7-73.9); Platelet Count 301 T/CUMM (130-400); Red Blood Count 4.24 MC/CUMM (3.8-5.5); White Blood Count 11.2 T/CUMM (4-12)
[2019-05-04 06:24] LABS: Hypochromasia 1+; Platelet Estimate Adequate
[2019-05-04 06:26] LABS: Calcium 7.8 MG/DL (8.5-10.1); Osmolality,Calculated 278.2 MOS/KG (273-304)
[2019-05-04] MEDS: THEOPHYLLINE ER (24 HR) 400 MG CAPSULE PO SCH (09:06)
[2019-05-04] MEDS: POTASSIUM CHLORIDE 20 MEQ TABLET PO SCH ×3 (09:06→16:20)
[2019-05-04] MEDS: MAGNESIUM GLUCONATE 500 MG TABLET PO SCH (09:06)
[2019-05-04] MEDS: FUROSEMIDE 80 MG TABLET PO SCH ×2 (09:07→16:20)
[2019-05-04] MEDS: APIXABAN 2.5 MG TABLET PO SCH ×2 (09:07→21:06)
[2019-05-04] MEDS: CHOLECALCIFEROL 400 UNIT TABLET PO SCH (09:07)
[2019-05-04] MEDS: ASCORBIC ACID 500 MG TABLET PO SCH ×2 (09:07→21:06)
[2019-05-04] MEDS: DILTIAZEM CD 180 MG CAPSULE PO SCH ×2 (09:07→21:07)
[2019-05-04] MEDS: DOCUSATE SODIUM 100 MG CAPSULE PO SCH ×3 (09:07→21:06)
[2019-05-04] MEDS: SPIRONOLACTONE 25 MG TABLET PO SCH (09:07)
[2019-05-04] MEDS: predniSONE 20 MG TABLET PO SCH (09:07)
[2019-05-04] MEDS: FERROUS SULFATE 325 MG TABLET PO SCH (09:07)
[2019-05-04] MEDS: cefTRIAXone 1,000 MG in SYRINGE 1 EACH IV SCH (11:27)
[2019-05-04] MEDS: MONTELUKAST 10 MG TABLET PO SCH (21:06)
[2019-05-04] MEDS: ZALEPLON 5 MG CAPSULE PO SCH (21:06)
[2019-05-04] MEDS: AMITRIPTYLINE 25 MG TABLET PO SCH (21:07)
[2019-05-05] MEDS: ALBUTEROL/IPRATROPIUM 3 ML NEB RESP TX SCH ×2 (01:42→07:27)
[2019-05-05 06:15] LABS: Calcium 8.3 MG/DL (8.5-10.1); Osmolality,Calculated 277.2 MOS/KG (273-304)
[2019-05-05 06:34] LABS: Basophils % 0.2 % (0.0-0.8); Eosinophils % 0.3 % (0.00-10.9); Hematocrit 34.7 VOL% (35.7-47.0); Immature Granulocytes % 2.3 %; Immature Granulocytes Absolute 0.23 #; Lymphocytes # 1.1 10*3/uL (1.4-4.0); Lymphocytes % 11.4 % (21.3-54.2); Mean Corpuscular HGB Conc 28.8 GM/DL (32-36); Mean Corpuscular Volume 80.1 FL (87-102); Mean Platelet Volume 9.4 FL (9.6-12.0); Monocytes % 10.1 % (1.7-12.7); NRBC # 0.02 10*3/uL; Neutrophils % 75.7 % (38.7-73.9); Platelet Count 239 T/CUMM (130-400); Red Blood Count 4.33 MC/CUMM (3.8-5.5); Red Cell Distribution Width 17.1 % (9.3-17.3); White Blood Count 9.8 T/CUMM (4-12)
[2019-05-05 06:38] LABS: Hypochromasia 1+; Ovalocytes Slight; Platelet Estimate Adequate
[2019-05-05] MEDS: DILTIAZEM CD 180 MG CAPSULE PO SCH (09:38)
[2019-05-05] MEDS: predniSONE 20 MG TABLET PO SCH (09:38)
[2019-05-05] MEDS: CHOLECALCIFEROL 400 UNIT TABLET PO SCH (09:38)
[2019-05-05] MEDS: FERROUS SULFATE 325 MG TABLET PO SCH (09:38)
[2019-05-05] MEDS: APIXABAN 2.5 MG TABLET PO SCH (09:38)
[2019-05-05] MEDS: ASCORBIC ACID 500 MG TABLET PO SCH (09:38)
[2019-05-05] MEDS: FUROSEMIDE 80 MG TABLET PO SCH (09:39)
[2019-05-05] MEDS: MAGNESIUM GLUCONATE 500 MG TABLET PO SCH (09:39)
[2019-05-05] MEDS: DOCUSATE SODIUM 100 MG CAPSULE PO SCH (09:39)
[2019-05-05] MEDS: SPIRONOLACTONE 25 MG TABLET PO SCH (09:39)
[2019-05-05] MEDS: THEOPHYLLINE ER (24 HR) 400 MG CAPSULE PO SCH (09:40)
[2019-05-05] MEDS: cefTRIAXone 1,000 MG in SYRINGE 1 EACH IV SCH (09:40)
[2019-05-05 11:41] VITALS: BP 116/80
== END 2019-05-05 12:40 | disposition home health service (06) ==
LOC: EDUNIT# → EDBD → N.EDINP 07:08 → N.ED 07:08 → SUATTDRO 10:23 → N.2W 11:21 → N.2E 05-02 18:08
PROVIDERS: ADMIT Internal Medicine Cardiovascular Disease; ATTEND Family Medicine

== ENCOUNTER 2019-05-17 18:17 | Inpatient (IN) ==
[2019-05-17 18:58] LABS: Basophils % 0.2 % (0.0-0.8); Eosinophils % 0.1 % (0.00-10.9); Hematocrit 33.4 VOL% (35.7-47.0); Immature Granulocytes % 0.7 %; Immature Granulocytes Absolute 0.09 #; Lymphocytes # 0.3 10*3/uL (1.4-4.0); Lymphocytes % 2.4 % (21.3-54.2); Mean Corpuscular HGB Conc 29.9 GM/DL (32-36); Mean Corpuscular Volume 78.8 FL (87-102); Mean Platelet Volume 9.7 FL (9.6-12.0); Monocytes % 1.8 % (1.7-12.7); Neutrophils % 94.8 % (38.7-73.9); Platelet Count 215 T/CUMM (130-400); Red Blood Count 4.24 MC/CUMM (3.8-5.5); Red Cell Distribution Width 18.8 % (9.3-17.3); White Blood Count 13.3 T/CUMM (4-12)
[2019-05-17] MEDS ORDERED: ALBUTEROL/IPRATROPIUM 3 ML NEB RESP TX STA (19:05)
[2019-05-17 19:20] LABS: Albumin 3.1 G/DL (3.4-5.0); Bilirubin,Total 0.6 MG/DL (0.2-1.0); Calcium 8.8 MG/DL (8.5-10.1); Osmolality,Calculated 253.1 MOS/KG (273-304); Total Protein 6.8 G/DL (6.4-8.3)
[2019-05-17] MEDS ORDERED: methylPREDNISolone SOD SUC 125 MG/2 ML VIAL IV STA (19:28)
[2019-05-17 19:29] LABS: Lymphocytes 2 % (20-55); Segmented Neutrophils 97 % (50-85); Total Cells Counted 100
[2019-05-17 19:32] LABS: Hypochromasia Slight; Macrocytosis Slight; Ovalocytes Slight; Poikilocytosis Slight
[2019-05-17] MEDS ORDERED: INSULIN REGULAR 100 UNIT/ML IV STA (21:15)
[2019-05-17] MEDS ORDERED: DEXTROSE 50% 25 GM/50 ML VIAL IV STA (21:15)
[2019-05-17] MEDS ORDERED: SODIUM POLYSTYRENE SULFATE 15 GM/60 ML BOTTLE PO STA (21:26)
[2019-05-17] MEDS ORDERED: DEXTROSE 50% 25 GM/50 ML SYRINGE IV ONE (21:59)
[2019-05-17] MEDS ORDERED: ACETAMINOPHEN 325 MG TABLET PO PRN (22:07)
[2019-05-17] MEDS ORDERED: NICOTINE 21 MG/24 HR PATCH TRANSDERM PRN (22:07)
[2019-05-17] MEDS ORDERED: SODIUM CHLORIDE 0.9% 250 ML IV STA (22:07)
[2019-05-17] MEDS ORDERED: diphenhydrAMINE CAP 25 MG CAPSULE PO PRN (22:07)
[2019-05-17] MEDS ORDERED: ONDANSETRON 4 MG/2 ML VIAL IV PRN (22:07)
[2019-05-17] MEDS ORDERED: MORPHINE 4 MG/1 ML VIAL IV PRN (22:07)
[2019-05-17 23:23] LABS: Osmolality,Calculated 258.8 MOS/KG (273-304); Risk Ratio 4.12; VLDL CHOLESTEROL 19.2 MG/DL
[2019-05-17] MEDS: SODIUM CHLORIDE 0.9% 1,000 ML IV SCH (23:58)
[2019-05-18] MEDS: ZALEPLON 5 MG CAPSULE PO PRN ×2 (00:15→21:05)
[2019-05-18] MEDS: methylPREDNISolone SOD SUC 40 MG/1 ML VIAL IV SCH ×3 (01:49→17:16)
[2019-05-18] MEDS: ALBUTEROL/IPRATROPIUM 3 ML NEB RESP TX SCH ×4 (05:11→19:27)
[2019-05-18 05:47] LABS: Calcium 8.3 MG/DL (8.5-10.1); Osmolality,Calculated 262.5 MOS/KG (273-304)
[2019-05-18] MEDS ORDERED: TOLVAPTAN 15 MG TABLET PO SCH (09:00)
[2019-05-18] MEDS ORDERED: APIXABAN 2.5 MG TABLET PO SCH (09:00)
[2019-05-18] MEDS: FUROSEMIDE 40 MG/4 ML VIAL IV SCH ×2 (09:25→15:24)
[2019-05-18 10:54] LABS: Calcium 8.2 MG/DL (8.5-10.1); Osmolality,Calculated 264.8 MOS/KG (273-304)
[2019-05-18 13:41] LABS: Apearance,Urine CLEAR (Clear); Bacteria,Urine Occasional /HPF (Few); Bilirubin,Urine Negative (Negative); Blood, Urine Negative (Negative); Glucose,Urine (UA) >=500 mg/dL (Negative); Ketones,Urine Negative (Negative); Nitrite,Urine Negative (Negative); Protein,Urine Negative; RBC,Urine 4 /HPF (0-4); Squamous Epithelial Cell,Urine Occasional /HPF (0-10); Urine Color Straw (Yellow); Urine Specific Gravity 1.002 (1.001-1.035); Urine Urobilinogen < 2.0 EU/DL (0.2-1.0); WBC,Urine 2 /HPF (0-6)
[2019-05-18] MEDS ORDERED: FUROSEMIDE 40 MG/4 ML VIAL IV ONE (13:48)
[2019-05-18] MEDS: SODIUM CHLORIDE 0.9% 1,000 ML IV SCH (14:13)
[2019-05-18] MEDS: ISOSORBIDE MONONITRATE 30 MG TABLET PO SCH (15:24)
[2019-05-18] MEDS: PANTOPRAZOLE 40 MG TABLET PO SCH (17:16)
[2019-05-18 17:17] LABS: Osmolality,Calculated 268.6 MOS/KG (273-304)
[2019-05-18] MEDS: APIXABAN 5 MG TABLET PO SCH (21:05)
[2019-05-18] MEDS: BISACODYL 5 MG TABLET PO PRN (21:05)
[2019-05-18 22:33] LABS: Calcium 7.7 MG/DL (8.5-10.1); Osmolality,Calculated 279.4 MOS/KG (273-304)
[2019-05-19] MEDS: ALBUTEROL/IPRATROPIUM 3 ML NEB RESP TX SCH ×4 (00:09→19:54)
[2019-05-19] MEDS: methylPREDNISolone SOD SUC 40 MG/1 ML VIAL IV SCH ×2 (02:25→09:42)
[2019-05-19 05:44] LABS: Calcium 8.2 MG/DL (8.5-10.1); Osmolality,Calculated 278.1 MOS/KG (273-304)
[2019-05-19] MEDS: FUROSEMIDE 40 MG/4 ML VIAL IV SCH ×2 (08:31→16:12)
[2019-05-19] MEDS: APIXABAN 5 MG TABLET PO SCH ×2 (08:32→21:41)
[2019-05-19] MEDS: ISOSORBIDE MONONITRATE 30 MG TABLET PO SCH (08:32)
[2019-05-19] MEDS: PANTOPRAZOLE 40 MG TABLET PO SCH (08:32)
[2019-05-19] MEDS: TOLVAPTAN 15 MG TABLET PO SCH (08:32)
[2019-05-19] MEDS ORDERED: VANCOMYCIN INJ 1,000 MG in SODIUM CHLORIDE 0.9% 250 ML IV ONE (12:12)
[2019-05-19] MEDS: INSULIN LISPRO 100 UNIT/ML SUBCUT SCH ×3 (12:22→21:40)
[2019-05-19] MEDS: DOXYCYCLINE HYCLATE 100 MG CAPSULE PO SCH ×2 (12:23→21:40)
[2019-05-19] MEDS: INSULIN GLARGINE 100 UNIT/ML SUBCUT SCH (12:51)
[2019-05-19] MEDS: DILTIAZEM CD 180 MG CAPSULE PO SCH ×2 (13:59→21:40)
[2019-05-19] MEDS: NYSTATIN CREAM 15 GM TUBE TOP SCH (21:41)
[2019-05-19] MEDS: ZALEPLON 5 MG CAPSULE PO PRN (21:43)
[2019-05-20 05:54] LABS: Basophils % 0.1 % (0.0-0.8); Hematocrit 31.2 VOL% (35.7-47.0); Hemoglobin 9.4 GM/DL (12.0-16.0); Immature Granulocytes % 0.5 %; Immature Granulocytes Absolute 0.06 #; Lymphocytes # 0.3 10*3/uL (1.4-4.0); Lymphocytes % 2.7 % (21.3-54.2); Mean Corpuscular HGB Conc 30.1 GM/DL (32-36); Mean Platelet Volume 9.7 FL (9.6-12.0); Monocytes % 4.7 % (1.7-12.7); Platelet Count 236 T/CUMM (130-400); Red Blood Count 3.95 MC/CUMM (3.8-5.5); Red Cell Distribution Width 18.4 % (9.3-17.3); White Blood Count 11.3 T/CUMM (4-12)
[2019-05-20 06:21] LABS: Calcium 8.7 MG/DL (8.5-10.1); Osmolality,Calculated 279.5 MOS/KG (273-304)
[2019-05-20 06:24] LABS: Hypochromasia 1+; Lymphocytes 4 % (20-55); Ovalocytes Slight; Platelet Estimate Adequate; Segmented Neutrophils 93 % (50-85); Total Cells Counted 100
[2019-05-20] MEDS: ALBUTEROL/IPRATROPIUM 3 ML NEB RESP TX SCH ×2 (07:45)
[2019-05-20] MEDS: INSULIN LISPRO 100 UNIT/ML SUBCUT SCH ×2 (08:39→11:32)
[2019-05-20] MEDS: DILTIAZEM CD 180 MG CAPSULE PO SCH (08:40)
[2019-05-20] MEDS: INSULIN GLARGINE 100 UNIT/ML SUBCUT SCH (08:41)
[2019-05-20] MEDS: APIXABAN 5 MG TABLET PO SCH (08:41)
[2019-05-20] MEDS: DOXYCYCLINE HYCLATE 100 MG CAPSULE PO SCH (08:42)
[2019-05-20] MEDS: BISACODYL 5 MG TABLET PO PRN (08:42)
[2019-05-20] MEDS: PANTOPRAZOLE 40 MG TABLET PO SCH (08:43)
[2019-05-20] MEDS: NYSTATIN CREAM 15 GM TUBE TOP SCH (08:44)
[2019-05-20] MEDS: FUROSEMIDE 40 MG/4 ML VIAL IV SCH (08:58)
[2019-05-20] MEDS ORDERED: ASCORBIC ACID 500 MG TABLET PO SCH (09:00)
[2019-05-20] MEDS ORDERED: predniSONE 20 MG TABLET PO SCH (09:00)
[2019-05-20] MEDS: ISOSORBIDE MONONITRATE 30 MG TABLET PO SCH (09:28)
[2019-05-20] MEDS: TOLVAPTAN 15 MG TABLET PO SCH (09:29)
[2019-05-20 12:01] VITALS: BP 116/78
== END 2019-05-20 12:19 | disposition home health service (06) | DRG 302 ==
LOC: EDUNIT# → EDBD → N.ED 18:17 → N.EDINP 22:07 → SUATTDRO 22:07 → N.TELEN 22:58
PROVIDERS: ADMIT Internal Medicine; ATTEND Internal Medicine

== ENCOUNTER 2020-08-04 09:00 | Observation (INO) ==
[2020-08-04] MEDS ORDERED: FUROSEMIDE 40 MG/4 ML VIAL IV STA (09:19)
[2020-08-04 09:34] LABS: Basophils % 0.4 % (0.0-0.8); Eosinophils # 0.1 10*3/uL (0.0-0.87); Eosinophils % 0.9 % (0.00-10.9); Hematocrit 27.9 VOL% (35.7-47.0); Hemoglobin 8.8 GM/DL (12.0-16.0); Immature Granulocytes % 0.4 %; Immature Granulocytes Absolute 0.04 #; Lymphocytes # 0.5 10*3/uL (1.4-4.0); Lymphocytes % 4.7 % (21.3-54.2); Mean Corpuscular HGB Conc 31.5 GM/DL (32-36); Mean Corpuscular Volume 86.1 FL (87-102); Monocytes % 6.5 % (1.7-12.7); Neutrophils % 87.1 % (38.7-73.9); Platelet Count 179 T/CUMM (130-400); Red Blood Count 3.24 MC/CUMM (3.8-5.5); Red Cell Distribution Width 19.5 % (9.3-17.3); White Blood Count 9.9 T/CUMM (4-12)
[2020-08-04 09:55] LABS: Eosinophils 1 % (0-10); Lymphocytes 5 % (20-55); Segmented Neutrophils 89 % (50-85); Total Cells Counted 100
[2020-08-04 09:57] LABS: Hypochromasia 1+; Microcytosis 1+; Ovalocytes Slight; Platelet Estimate Adequate; Polychromasia Slight
[2020-08-04 10:02] LABS: Albumin 3.1 G/DL (3.4-5.0); Bilirubin,Total 0.6 MG/DL (0.2-1.0); Calcium 8.7 MG/DL (8.5-10.1); Osmolality,Calculated 268.4 MOS/KG (273-304); Potassium 3.7 MMOL/L (3.5-5.1); Total Protein 6.2 G/DL (6.4-8.2)
[2020-08-04] MEDS ORDERED: MAGNESIUM SULF RIDER 4 GM in PREMIX 1 EACH IV PRN (11:45)
[2020-08-04] MEDS ORDERED: ACETAMINOPHEN 325 MG TABLET PO PRN (11:45)
[2020-08-04] MEDS ORDERED: guaiFENesin/DM ER 600-30 MG TABLET PO PRN (11:45)
[2020-08-04] MEDS ORDERED: ONDANSETRON 4 MG/2 ML VIAL IV PRN (11:45)
[2020-08-04] MEDS ORDERED: ALUMINUM/MAGNES/SIMETH MAX STR 30 ML UDCUP PO PRN (11:45)
[2020-08-04] MEDS ORDERED: LACTULOSE 20 GM/30 ML UDCUP PO PRN (11:45)
[2020-08-04] MEDS ORDERED: SIMETHICONE CHEW 125 MG TABLET PO PRN (11:45)
[2020-08-04] MEDS ORDERED: ZALEPLON 5 MG CAPSULE PO PRN (11:45)
[2020-08-04] MEDS ORDERED: diphenhydrAMINE CAP 25 MG CAPSULE PO PRN (11:45)
[2020-08-04] MEDS ORDERED: MAGNESIUM SULF RIDER 2 GM in PREMIX 1 EACH IV PRN (11:45)
[2020-08-04] MEDS ORDERED: BISACODYL 5 MG TABLET PO PRN (11:45)
[2020-08-04] MEDS ORDERED: POTASSIUM CHLORIDE 20 MEQ TABLET PO PRN (11:45)
[2020-08-04] MEDS ORDERED: hydrALAZINE 20 MG/1 ML VIAL IV PRN (11:45)
[2020-08-04] MEDS ORDERED: ALBUTEROL/IPRATROPIUM 3 ML NEB RESP TX PRN (12:23)
[2020-08-04] MEDS: ALBUTEROL/IPRATROPIUM 3 ML NEB RESP TX SCH ×2 (13:14→19:11)
[2020-08-04] MEDS: FUROSEMIDE 40 MG/4 ML VIAL IV SCH (15:58)
[2020-08-04] MEDS: methylPREDNISolone SOD SUC 40 MG/1 ML VIAL IV SCH (16:03)
[2020-08-04] MEDS: INSULIN LISPRO 100 UNIT/ML SUBCUT SCH ×2 (17:29→22:16)
[2020-08-04] MEDS ORDERED: AMITRIPTYLINE 25 MG TABLET PO SCH (21:00)
[2020-08-04] MEDS ORDERED: MONTELUKAST 10 MG TABLET PO SCH (21:00)
[2020-08-04] MEDS: DILTIAZEM CD 180 MG CAPSULE PO SCH (21:34)
[2020-08-04] MEDS: APIXABAN 2.5 MG TABLET PO SCH (22:00)
[2020-08-04] MEDS: FERROUS SULFATE 325 MG TABLET PO SCH (22:00)
[2020-08-04] MEDS: MAGNESIUM OXIDE 400 MG TABLET PO SCH (22:00)
[2020-08-04] MEDS: DOCUSATE SODIUM 100 MG CAPSULE PO SCH (22:00)
[2020-08-05] MEDS: methylPREDNISolone SOD SUC 40 MG/1 ML VIAL IV SCH ×2 (00:38→08:26)
[2020-08-05] MEDS: ALBUTEROL/IPRATROPIUM 3 ML NEB RESP TX SCH ×3 (00:48→13:21)
[2020-08-05 04:48] LABS: Hemoglobin 9.4 GM/DL (12.0-16.0); Immature Granulocytes % 0.6 %; Immature Granulocytes Absolute 0.04 #; Lymphocytes # 0.2 10*3/uL (1.4-4.0); Lymphocytes % 3.4 % (21.3-54.2); Mean Corpuscular HGB Conc 31.3 GM/DL (32-36); Mean Platelet Volume 9.1 FL (9.6-12.0); Monocytes % 0.6 % (1.7-12.7); Neutrophils % 95.4 % (38.7-73.9); Platelet Count 214 T/CUMM (130-400); Red Blood Count 3.49 MC/CUMM (3.8-5.5); White Blood Count 6.5 T/CUMM (4-12)
[2020-08-05 05:08] LABS: Hypochromasia 1+; Lymphocytes 3 % (20-55); Microcytosis 1+; Platelet Estimate Adequate; Segmented Neutrophils 96 % (50-85); Total Cells Counted 100
[2020-08-05 05:25] LABS: Blood Urea Nitrogen 22 MG/DL (7-18); Calcium 9.3 MG/DL (8.5-10.1); Carbon Dioxide 32 MMOL/L (21-32); Estimated Glom Filtration Rate 85 ML/MIN; Glucose 186 MG/DL (74-106); Osmolality,Calculated 264.1 MOS/KG (273-304); Sodium 128 MMOL/L (136-145); Troponin I < 0.015 NG/ML (0.00-0.045)
[2020-08-05 05:29] LABS: Ferritin 29.4 ng/ml (8-252); Thyroid Stimulating Hormone 0.424 uIU/ml (0.358-3.74)
[2020-08-05 06:28] LABS: Vitamin B12 496 PG/ML (211-911)
[2020-08-05 06:33] LABS: Sedimentation Rate-Westergren 76 MM/HR (0-30)
[2020-08-05] MEDS: FERROUS SULFATE 325 MG TABLET PO SCH (08:18)
[2020-08-05] MEDS: DILTIAZEM CD 180 MG CAPSULE PO SCH (08:18)
[2020-08-05] MEDS: DOCUSATE SODIUM 100 MG CAPSULE PO SCH (08:19)
[2020-08-05] MEDS: APIXABAN 2.5 MG TABLET PO SCH (08:19)
[2020-08-05] MEDS: INSULIN LISPRO 100 UNIT/ML SUBCUT SCH ×2 (08:20→12:12)
[2020-08-05] MEDS: FUROSEMIDE 40 MG/4 ML VIAL IV SCH (08:20)
[2020-08-05] MEDS: MAGNESIUM OXIDE 400 MG TABLET PO SCH (08:30)
[2020-08-05] MEDS ORDERED: ASCORBIC ACID 500 MG TABLET PO SCH (09:00)
[2020-08-05] MEDS ORDERED: sitaGLIPtin 25 MG TABLET PO SCH (09:00)
[2020-08-05] MEDS ORDERED: POTASSIUM GLUCONATE 500 MG TABLET PO SCH (09:00)
[2020-08-05] MEDS ORDERED: ISOSORBIDE MONONITRATE 30 MG TABLET PO SCH (09:00)
[2020-08-05] MEDS ORDERED: SPIRONOLACTONE 25 MG TABLET PO SCH (09:00)
[2020-08-05] MEDS ORDERED: CHOLECALCIFEROL 400 UNIT TABLET PO SCH (09:00)
[2020-08-05] MEDS ORDERED: PANTOPRAZOLE 40 MG TABLET PO SCH (09:00)
[2020-08-05 10:44] LABS: % Iron Saturation 7.9 % (18-50)
[2020-08-05] MEDS ORDERED: BISACODYL 10 MG SUPP RECTAL ONE (11:05)
[2020-08-05] MEDS ORDERED: LACTULOSE 20 GM/30 ML UDCUP PO ONE (11:06)
[2020-08-05 11:23] VITALS: BP 110/71
[2020-08-05 11:59] LABS: Hemoglobin A1 (Alkaline) 97.2 % (96.5-98.5); Hemoglobin A2 (Alkaline) 2.8 % (1.5-3.5)
[2020-08-05] MEDS ORDERED: LACTULOSE 20 GM/30 ML UDCUP PO PRN (21:00)
[2020-08-06] MEDS ORDERED: predniSONE 10 MG TABLET PO SCH (09:00)
[2020-08-06] MEDS ORDERED: AZITHROMYCIN 250 MG TABLET PO SCH (09:00)
== END 2020-08-05 15:15 | disposition home or self-care (01) ==
LOC: EDUNIT# → EDBD → N.ED 09:00 → N.EDINP 09:00 → N.TELES 14:03
PROVIDERS: ADMIT Internal Medicine Cardiovascular Disease; ATTEND Internal Medicine Cardiovascular Disease

== ENCOUNTER 2020-09-01 01:30 | Inpatient (IN) ==
[2020-09-01] MEDS ORDERED: ETOMIDATE 20 MG/10 ML VIAL IV ONE (01:39)
[2020-09-01] MEDS ORDERED: VECURONIUM 10 MG VIAL IV ONE (01:39)
[2020-09-01] MEDS ORDERED: ETOMIDATE 20 MG/10 ML VIAL IV STA (01:45)
[2020-09-01] MEDS ORDERED: VECURONIUM 10 MG VIAL IV STA (01:45)
[2020-09-01] MEDS ORDERED: NOREPINEPHRINE 4 MG/4 ML VIAL IV ONE (01:52)
[2020-09-01] MEDS ORDERED: SODIUM CHLORIDE 0.9% 1,000 ML IV STA (01:53)
[2020-09-01] MEDS ORDERED: NOREPINEPHRINE 8 MG in SODIUM CHLORIDE 0.9% 242 ML IV PRN (02:00)
[2020-09-01 02:07] LABS: Basophils # 0.1 10*3/uL (0.0-0.2); Basophils % 0.5 % (0.0-0.8); Eosinophils # 0.1 10*3/uL (0.0-0.87); Eosinophils % 0.4 % (0.00-10.9); Hematocrit 29.2 VOL% (35.7-47.0); Hemoglobin 8.6 GM/DL (12.0-16.0); Immature Granulocytes % 2.7 %; Immature Granulocytes Absolute 0.36 #; Lymphocytes # 0.9 10*3/uL (1.4-4.0); Lymphocytes % 6.5 % (21.3-54.2); Mean Corpuscular HGB Conc 29.5 GM/DL (32-36); Mean Corpuscular Volume 85.4 FL (87-102); Mean Platelet Volume 10.7 FL (9.6-12.0); Monocytes % 9.3 % (1.7-12.7); NRBC # 0.02 10*3/uL; Neutrophils % 80.6 % (38.7-73.9); Platelet Count 312 T/CUMM (130-400); Red Blood Count 3.42 MC/CUMM (3.8-5.5); Red Cell Distribution Width 17.1 % (9.3-17.3); White Blood Count 13.1 T/CUMM (4-12)
[2020-09-01 02:13] LABS: INR 1.3; PT Patient Result 14.4 SECS (10.5-12.0)
[2020-09-01 02:14] LABS: ABG Base Excess 11.1 MMOL/L (-2.5-2.5); ABG HCO3 34.9 MMOL/L (20-26); ABG PCO2 44.5 MM HG (35-48); ABG PH 7.509 (7.35-7.45); ABG TCO2 32.9 MMOL/L (23-27)
[2020-09-01] MEDS ORDERED: PIPERACILLIN/TAZOBACTAM 3,375 MG VIAL IV ONE (02:31)
[2020-09-01 02:32] LABS: Alanine Aminotransferase 23 U/L (13-56); Albumin 3.2 G/DL (3.4-5.0); Alkaline Phosphatase 107 U/L (45-117); Aspartate Amino Transferase 32 U/L (0-37); Blood Urea Nitrogen 27 MG/DL (7-18); Calcium 8.8 MG/DL (8.5-10.1); Carbon Dioxide 36 MMOL/L (21-32); Estimated Glom Filtration Rate 38 ML/MIN; Glucose 100 MG/DL (74-106); Osmolality,Calculated 255.5 MOS/KG (273-304); Potassium 4.4 MMOL/L (3.5-5.1); Sodium 125 MMOL/L (136-145); Total Protein 5.9 G/DL (6.4-8.2)
[2020-09-01] MEDS ORDERED: SODIUM CHLORIDE 0.9% 100 ML IV ONE (02:32)
[2020-09-01] MEDS ORDERED: PIPERACILLIN/TAZOBACTAM 3,375 MG in SODIUM CHLORIDE 0.9% 100 ML IV STA (02:36)
[2020-09-01 02:39] LABS: Acetaminophen < 2.0 UG/ML (10-30); Salicylate < 2.8 MG/DL (2.8-20)
[2020-09-01 02:43] LABS: Bilirubin,Urine Negative (Negative); Blood, Urine Negative (Negative); Glucose,Urine (UA) Negative (Negative); Hyaline Casts,Urine 1 /LPF (0-3); Ketones,Urine Negative (Negative); Mucus,Urine Occasional /LPF (Occasional); Nitrite,Urine Negative (Negative); Protein,Urine Negative; RBC,Urine 1 /HPF (0-4); Urine Appearance CLEAR (Clear); Urine Color Yellow (Yellow); Urine Specific Gravity 1.011 (1.001-1.035)
[2020-09-01 02:57] LABS: Barbiturates Screen,Urine Negative (Negative); Benzodiazepines Screen,Urine Negative (Negative); Cannabinoid Screen,Urine Negative (Negative); Opiate Screen,Urine Negative (Negative); Phencyclidine Screen,Urine Negative (Negative)
[2020-09-01] MEDS ORDERED: ALBUTEROL 2.5 MG/3 ML NEB RESP TX PRN (04:17)
[2020-09-01] MEDS ORDERED: hydrALAZINE 20 MG/1 ML VIAL IV PRN (04:18)
[2020-09-01] MEDS ORDERED: MORPHINE 4 MG/1 ML VIAL IV PRN (04:18)
[2020-09-01] MEDS ORDERED: NICOTINE 21 MG/24 HR PATCH TRANSDERM PRN (04:18)
[2020-09-01] MEDS ORDERED: ONDANSETRON 4 MG/2 ML VIAL IV PRN (04:18)
[2020-09-01] MEDS ORDERED: NOREPINEPHRINE 8 MG in SODIUM CHLORIDE 0.9% 242 ML IV SCH (04:30)
[2020-09-01] MEDS ORDERED: ENOXAPARIN 30 MG/0.3 ML SYRINGE ONE (04:38)
[2020-09-01] MEDS ORDERED: PANTOPRAZOLE 40 MG VIAL IV ONE (04:38)
[2020-09-01] MEDS: SODIUM CHLORIDE 0.9% 1,000 ML IV SCH ×2 (04:51→13:20)
[2020-09-01] MEDS: ALBUTEROL/IPRATROPIUM 3 ML NEB RESP TX SCH ×3 (07:06→19:27)
[2020-09-01 07:20] LABS: Calcium 8.6 MG/DL (8.5-10.1); Osmolality,Calculated 261.2 MOS/KG (273-304); Potassium 3.9 MMOL/L (3.5-5.1)
[2020-09-01] MEDS ORDERED: PANTOPRAZOLE 40 MG VIAL IV SCH (09:00)
[2020-09-01] MEDS ORDERED: ENOXAPARIN 30 MG/0.3 ML SYRINGE SUBCUT SCH (09:00)
[2020-09-01 10:37] LABS: ABG Base Excess 11.6 MMOL/L (-2.5-2.5); ABG HCO3 35.4 MMOL/L (20-26); ABG PCO2 38.7 MM HG (35-48); ABG PH 7.563 (7.35-7.45); ABG TCO2 32.5 MMOL/L (23-27); Allen Test Positive; Pt O2 Delivery Device Ventilator
[2020-09-01] MEDS: PIPERACILLIN/TAZOBACTAM 3,375 MG in SODIUM CHLORIDE 0.9% 100 ML IV SCH ×2 (12:30→19:54)
[2020-09-01] MEDS: PANTOPRAZOLE 40 MG VIAL IV SCH (13:47)
[2020-09-01] MEDS: ENOXAPARIN 30 MG/0.3 ML SYRINGE SUBCUT SCH (13:47)
[2020-09-01] MEDS: methylPREDNISolone SOD SUC 40 MG/1 ML VIAL IV SCH ×2 (16:30→23:32)
[2020-09-02] MEDS: ALBUTEROL/IPRATROPIUM 3 ML NEB RESP TX SCH ×4 (00:10→20:12)
[2020-09-02] MEDS: SODIUM CHLORIDE 0.9% 1,000 ML IV SCH ×2 (01:32→13:14)
[2020-09-02] MEDS: PIPERACILLIN/TAZOBACTAM 3,375 MG in SODIUM CHLORIDE 0.9% 100 ML IV SCH ×3 (04:27→20:47)
[2020-09-02 04:55] LABS: ABG Base Excess 5.8 MMOL/L (-2.5-2.5); ABG HCO3 29.6 MMOL/L (20-26); ABG Oxygen Saturation 93.7 % (95-100); ABG PCO2 60.8 MM HG (35-48); ABG PH 7.341 (7.35-7.45); ABG PO2 74.1 MM HG (80-95); ABG TCO2 30.7 MMOL/L (23-27); Allen Test Positive
[2020-09-02] MEDS: ENOXAPARIN 30 MG/0.3 ML SYRINGE SUBCUT SCH (05:19)
[2020-09-02] MEDS: PANTOPRAZOLE 40 MG VIAL IV SCH (05:19)
[2020-09-02 05:48] LABS: Basophils % 0.1 % (0.0-0.8); Lymphocytes # 0.4 10*3/uL (1.4-4.0); Lymphocytes % 3.7 % (21.3-54.2); Mean Corpuscular Volume 86.1 FL (87-102); Mean Platelet Volume 9.2 FL (9.6-12.0); Monocytes % 1.8 % (1.7-12.7); Neutrophils % 93.4 % (38.7-73.9); Platelet Count 213 T/CUMM (130-400); Red Cell Distribution Width 16.8 % (9.3-17.3); White Blood Count 10.4 T/CUMM (4-12)
[2020-09-02] MEDS: methylPREDNISolone SOD SUC 40 MG/1 ML VIAL IV SCH ×3 (06:01→23:36)
[2020-09-02 06:14] LABS: Albumin 2.9 G/DL (3.4-5.0); Bilirubin,Total 1.3 MG/DL (0.2-1.0); Calcium 8.7 MG/DL (8.5-10.1); Osmolality,Calculated 261.4 MOS/KG (273-304); Potassium 4.5 MMOL/L (3.5-5.1); Total Protein 6.1 G/DL (6.4-8.2)
[2020-09-02 06:31] LABS: Acanthocytes Few; Band Neutrophils 2 % (0-10); Lymphocytes 5 % (20-55); Ovalocytes Few; Platelet Estimate Normal; Segmented Neutrophils 91 % (50-85); Total Cells Counted 100
[2020-09-02] MEDS ORDERED: ALBUTEROL/IPRATROPIUM 3 ML NEB RESP TX PRN (13:17)
[2020-09-02] MEDS: MONTELUKAST 10 MG TABLET PO SCH (20:49)
[2020-09-02] MEDS: MAGNESIUM OXIDE 400 MG TABLET PO SCH (20:49)
[2020-09-02] MEDS: APIXABAN 2.5 MG TABLET PO SCH (20:49)
[2020-09-03] MEDS: ALBUTEROL/IPRATROPIUM 3 ML NEB RESP TX SCH ×4 (01:32→21:03)
[2020-09-03] MEDS: PIPERACILLIN/TAZOBACTAM 3,375 MG in SODIUM CHLORIDE 0.9% 100 ML IV SCH ×3 (03:39→18:06)
[2020-09-03] MEDS: PANTOPRAZOLE 40 MG VIAL IV SCH (03:46)
[2020-09-03] MEDS: APIXABAN 2.5 MG TABLET PO SCH ×2 (08:27→20:57)
[2020-09-03] MEDS: methylPREDNISolone SOD SUC 40 MG/1 ML VIAL IV SCH ×2 (08:27→16:49)
[2020-09-03] MEDS: MAGNESIUM OXIDE 400 MG TABLET PO SCH ×2 (08:27→20:26)
[2020-09-03] MEDS ORDERED: ROFLUMILAST 250 MCG PO SCH (09:00)
[2020-09-03] MEDS: DILTIAZEM CD 180 MG CAPSULE PO SCH ×2 (10:25→20:27)
[2020-09-03] MEDS: FUROSEMIDE 80 MG TABLET PO SCH ×2 (10:25→16:48)
[2020-09-03] MEDS: ACETAMINOPHEN 325 MG TABLET PO PRN (18:06)
[2020-09-03] MEDS: MONTELUKAST 10 MG TABLET PO SCH (20:27)
[2020-09-04] MEDS: methylPREDNISolone SOD SUC 40 MG/1 ML VIAL IV SCH ×3 (01:12→16:50)
[2020-09-04] MEDS: ALBUTEROL/IPRATROPIUM 3 ML NEB RESP TX SCH ×4 (01:31→19:50)
[2020-09-04] MEDS: PIPERACILLIN/TAZOBACTAM 3,375 MG in SODIUM CHLORIDE 0.9% 100 ML IV SCH ×3 (03:05→18:14)
[2020-09-04] MEDS: PANTOPRAZOLE 40 MG TABLET PO SCH (05:39)
[2020-09-04 06:10] LABS: Basophils % 0.1 % (0.0-0.8); Hematocrit 27.3 VOL% (35.7-47.0); Hemoglobin 8.1 GM/DL (12.0-16.0); Immature Granulocytes % 0.9 %; Immature Granulocytes Absolute 0.08 #; Lymphocytes # 0.3 10*3/uL (1.4-4.0); Lymphocytes % 3.3 % (21.3-54.2); Mean Corpuscular HGB Conc 29.7 GM/DL (32-36); Mean Corpuscular Volume 83.7 FL (87-102); Mean Platelet Volume 9.4 FL (9.6-12.0); Monocytes % 5.1 % (1.7-12.7); Neutrophils % 90.6 % (38.7-73.9); Platelet Count 273 T/CUMM (130-400); Red Blood Count 3.26 MC/CUMM (3.8-5.5); White Blood Count 9.4 T/CUMM (4-12)
[2020-09-04 06:37] LABS: Calcium 8.4 MG/DL (8.5-10.1); Osmolality,Calculated 266.5 MOS/KG (273-304); Potassium 4.9 MMOL/L (3.5-5.1)
[2020-09-04 08:14] LABS: Lymphocytes 3 % (20-55); Segmented Neutrophils 96 % (50-85); Total Cells Counted 100
[2020-09-04 08:15] LABS: Hypochromasia 2+; Microcytosis Slight; Ovalocytes Few; Platelet Estimate Normal; Polychromasia Slight
[2020-09-04] MEDS: MAGNESIUM OXIDE 400 MG TABLET PO SCH ×2 (08:31→21:10)
[2020-09-04] MEDS: DILTIAZEM CD 180 MG CAPSULE PO SCH ×2 (08:31→21:07)
[2020-09-04] MEDS: FUROSEMIDE 80 MG TABLET PO SCH ×2 (08:31→16:50)
[2020-09-04] MEDS: APIXABAN 2.5 MG TABLET PO SCH ×2 (08:31→21:06)
[2020-09-04] MEDS: ROFLUMILAST 500 MCG TABLET PO SCH (08:31)
[2020-09-04] MEDS: FERROUS GLUCONATE 324 MG TABLET PO SCH ×2 (10:14→21:07)
[2020-09-04] MEDS: sitaGLIPtin 25 MG TABLET PO SCH (14:48)
[2020-09-04] MEDS: MONTELUKAST 10 MG TABLET PO SCH (21:06)
[2020-09-05] MEDS: methylPREDNISolone SOD SUC 40 MG/1 ML VIAL IV SCH ×3 (01:02→13:02)
[2020-09-05] MEDS: ALBUTEROL/IPRATROPIUM 3 ML NEB RESP TX SCH ×4 (01:30→19:50)
[2020-09-05] MEDS: PIPERACILLIN/TAZOBACTAM 3,375 MG in SODIUM CHLORIDE 0.9% 100 ML IV SCH ×3 (03:14→20:06)
[2020-09-05 05:34] LABS: Basophils % 0.1 % (0.0-0.8); Hematocrit 26.7 VOL% (35.7-47.0); Hemoglobin 7.9 GM/DL (12.0-16.0); Immature Granulocytes % 1.2 %; Immature Granulocytes Absolute 0.13 #; Lymphocytes # 0.2 10*3/uL (1.4-4.0); Mean Corpuscular HGB Conc 29.6 GM/DL (32-36); Mean Corpuscular Volume 82.7 FL (87-102); Mean Platelet Volume 9.4 FL (9.6-12.0); Monocytes % 3.4 % (1.7-12.7); NRBC # 0.14 10*3/uL; Neutrophils % 93.3 % (38.7-73.9); Platelet Count 278 T/CUMM (130-400); Red Blood Count 3.23 MC/CUMM (3.8-5.5); White Blood Count 11.1 T/CUMM (4-12)
[2020-09-05] MEDS: PANTOPRAZOLE 40 MG TABLET PO SCH (05:39)
[2020-09-05 05:54] LABS: Calcium 8.7 MG/DL (8.5-10.1); Osmolality,Calculated 273.9 MOS/KG (273-304); Potassium 3.7 MMOL/L (3.5-5.1)
[2020-09-05 05:57] LABS: Lymphocytes 1 % (20-55); Nucleated Red Blood Cells 2 (0-5); Platelet Estimate Normal; Segmented Neutrophils 97 % (50-85); Total Cells Counted 100
[2020-09-05 05:58] LABS: Hypochromasia 2+; Microcytosis 1+
[2020-09-05] MEDS: APIXABAN 2.5 MG TABLET PO SCH ×2 (08:42→20:05)
[2020-09-05] MEDS: MAGNESIUM OXIDE 400 MG TABLET PO SCH ×2 (08:42→20:06)
[2020-09-05] MEDS: FERROUS GLUCONATE 324 MG TABLET PO SCH ×2 (08:43→20:05)
[2020-09-05] MEDS: sitaGLIPtin 25 MG TABLET PO SCH (08:43)
[2020-09-05] MEDS: ROFLUMILAST 500 MCG TABLET PO SCH (08:43)
[2020-09-05] MEDS: FUROSEMIDE 80 MG TABLET PO SCH ×2 (08:45→17:24)
[2020-09-05] MEDS: DILTIAZEM CD 180 MG CAPSULE PO SCH ×2 (08:45→20:05)
[2020-09-05] MEDS: ACETAMINOPHEN 325 MG TABLET PO PRN (10:35)
[2020-09-05] MEDS: MONTELUKAST 10 MG TABLET PO SCH (20:06)
[2020-09-06] MEDS: methylPREDNISolone SOD SUC 40 MG/1 ML VIAL IV SCH (00:30)
[2020-09-06] MEDS: ALBUTEROL/IPRATROPIUM 3 ML NEB RESP TX SCH ×3 (01:40→13:10)
[2020-09-06] MEDS: PIPERACILLIN/TAZOBACTAM 3,375 MG in SODIUM CHLORIDE 0.9% 100 ML IV SCH ×2 (03:50→13:46)
[2020-09-06] MEDS: PANTOPRAZOLE 40 MG TABLET PO SCH (06:32)
[2020-09-06 06:33] LABS: Basophils % 0.2 % (0.0-0.8); Hemoglobin 8.1 GM/DL (12.0-16.0); Immature Granulocytes Absolute 0.13 #; Lymphocytes # 0.2 10*3/uL (1.4-4.0); Lymphocytes % 2.6 % (21.3-54.2); Mean Corpuscular Volume 81.6 FL (87-102); Mean Platelet Volume 9.4 FL (9.6-12.0); Monocytes % 4.8 % (1.7-12.7); NRBC # 0.31 10*3/uL; Neutrophils % 90.4 % (38.7-73.9); Platelet Count 273 T/CUMM (130-400); Red Blood Count 3.31 MC/CUMM (3.8-5.5); Red Cell Distribution Width 16.1 % (9.3-17.3); White Blood Count 6.4 T/CUMM (4-12)
[2020-09-06 06:40] LABS: Calcium 8.8 MG/DL (8.5-10.1); Osmolality,Calculated 274.8 MOS/KG (273-304); Potassium 3.8 MMOL/L (3.5-5.1)
[2020-09-06 06:44] LABS: Hypochromasia 1+; Lymphocytes 6 % (20-55); Microcytosis 1+; Nucleated Red Blood Cells 2 (0-5); Platelet Estimate Adequate; Segmented Neutrophils 90 % (50-85); Total Cells Counted 100
[2020-09-06] MEDS: MAGNESIUM OXIDE 400 MG TABLET PO SCH (08:26)
[2020-09-06] MEDS: APIXABAN 2.5 MG TABLET PO SCH (08:26)
[2020-09-06] MEDS: sitaGLIPtin 25 MG TABLET PO SCH (08:26)
[2020-09-06] MEDS: ROFLUMILAST 500 MCG TABLET PO SCH (08:26)
[2020-09-06] MEDS: FERROUS GLUCONATE 324 MG TABLET PO SCH (08:27)
[2020-09-06] MEDS: FUROSEMIDE 80 MG TABLET PO SCH (08:27)
[2020-09-06] MEDS: DILTIAZEM CD 180 MG CAPSULE PO SCH (08:27)
[2020-09-06 12:04] VITALS: BP 105/49
== END 2020-09-06 14:06 | disposition home or self-care (01) | DRG 208 ==
LOC: EDBD → EDUNIT# → N.ED 01:30 → SUATTDRO 04:17 → N.EDINP 04:17 → N.ICU 08:17 → N.5E 09-02 16:08
PROVIDERS: ADMIT Internal Medicine; ATTEND Internal Medicine

== ENCOUNTER 2020-09-20 23:18 | Inpatient (IN) ==
[2020-09-20] MEDS ORDERED: SODIUM CHLORIDE 0.9% 1,000 ML IV STA (23:54)
[2020-09-20] MEDS ORDERED: NALOXONE 0.4 MG/ML VIAL IV STA (23:55)
[2020-09-21 00:14] LABS: ABG Base Excess 17.3 MMOL/L (-2.5-2.5); ABG HCO3 45.3 MMOL/L (20-26); ABG PH 7.348 (7.35-7.45); ABG PO2 89.4 MM HG (80-95); ABG TCO2 47.9 MMOL/L (23-27); Allen Test Positive
[2020-09-21 00:16] LABS: ABG PCO2 84.3 MM HG (35-48)
[2020-09-21 00:17] LABS: Alanine Aminotransferase 22 U/L (13-56); Albumin 3.2 G/DL (3.4-5.0); Alkaline Phosphatase 109 U/L (45-117); Aspartate Amino Transferase 14 U/L (0-37); Bilirubin,Total < 0.39 MG/DL (0.2-1.0); Blood Urea Nitrogen 35 MG/DL (7-18); Carbon Dioxide 40 MMOL/L (21-32); Estimated Glom Filtration Rate 53 ML/MIN; Glucose 129 MG/DL (74-106); Osmolality,Calculated 277.2 MOS/KG (273-304); Potassium 4.2 MMOL/L (3.5-5.1); Sodium 134 MMOL/L (136-145); Total Protein 5.8 G/DL (6.4-8.2)
[2020-09-21 00:45] LABS: Basophils % 0.1 % (0.0-0.8); Eosinophils # 0.1 10*3/uL (0.0-0.87); Eosinophils % 0.7 % (0.00-10.9); Hematocrit 27.5 VOL% (35.7-47.0); Hemoglobin 7.7 GM/DL (12.0-16.0); Immature Granulocytes % 1.1 %; Immature Granulocytes Absolute 0.15 #; Lymphocytes # 0.7 10*3/uL (1.4-4.0); Mean Corpuscular Volume 89.3 FL (87-102); Mean Platelet Volume 10.3 FL (9.6-12.0); Monocytes % 7.4 % (1.7-12.7); Neutrophils % 85.7 % (38.7-73.9); Platelet Count 116 T/CUMM (130-400); Red Blood Count 3.08 MC/CUMM (3.8-5.5); Red Cell Distribution Width 20.8 % (9.3-17.3); White Blood Count 14.2 T/CUMM (4-12)
[2020-09-21] MEDS ORDERED: cefTRIAXone 1,000 MG in SODIUM CHLORIDE 0.9% 100 ML IV STA (01:44)
[2020-09-21 02:04] LABS: ABG Base Excess 15.1 MMOL/L (-2.5-2.5); ABG Oxygen Saturation 99.6 % (95-100); ABG PH 7.322 (7.35-7.45); ABG TCO2 41.6 MMOL/L (23-27); Allen Test Positive; Pt O2 Delivery Device BIPAP
[2020-09-21 02:06] LABS: ABG PCO2 84.9 MM HG (35-48)
[2020-09-21 02:11] LABS: Barbiturates Screen,Urine Negative (Negative); Benzodiazepines Screen,Urine Negative (Negative); Cannabinoid Screen,Urine Negative (Negative); Opiate Screen,Urine Negative (Negative); Phencyclidine Screen,Urine Negative (Negative)
[2020-09-21 02:14] LABS: Bacteria,Urine Occasional /HPF (Few); Bilirubin,Urine Negative (Negative); Blood, Urine Negative (Negative); Glucose,Urine (UA) Negative (Negative); Hyaline Casts,Urine 23 /LPF (0-3); Ketones,Urine Negative (Negative); Mucus,Urine Occasional /LPF (Occasional); Nitrite,Urine Negative (Negative); Protein,Urine Negative; RBC,Urine 1 /HPF (0-4); Squamous Epithelial Cell,Urine Occasional /HPF (0-10); Urine Appearance CLEAR (Clear); Urine Color Yellow (Yellow); Urine Urobilinogen < 2.0 EU/DL (0.2-1.0)
[2020-09-21 03:07] LABS: Anisocytosis 2+; Hypochromasia 2+; Microcytosis 2+; Platelet Estimate Decreased
[2020-09-21 03:08] LABS: Polychromasia Few
[2020-09-21 03:09] LABS: ABG HCO3 39.9 MMOL/L (20-26); ABG PH 7.339 (7.35-7.45); ABG TCO2 42.2 MMOL/L (23-27); Allen Test Positive; Pt O2 Delivery Device BIPAP
[2020-09-21 03:11] LABS: ABG PCO2 82.9 MM HG (35-48)
[2020-09-21] MEDS ORDERED: SODIUM CHLORIDE 0.9% 500 ML IV STA (03:41)
[2020-09-21] MEDS ORDERED: ETOMIDATE 20 MG/10 ML VIAL IV STA (03:42)
[2020-09-21] MEDS ORDERED: ROCURONIUM 100 MG/10 ML VIAL IV STA (03:42)
[2020-09-21 04:56] LABS: ABG Base Excess 15.1 MMOL/L (-2.5-2.5); ABG PCO2 46.9 MM HG (35-48); ABG PH 7.535 (7.35-7.45); ABG TCO2 36.9 MMOL/L (23-27); Allen Test Positive; Pt O2 Delivery Device Ventilator
[2020-09-21] MEDS ORDERED: ALBUTEROL 2.5 MG/3 ML NEB RESP TX PRN (05:04)
[2020-09-21] MEDS ORDERED: DOPamine 800 MG/250 ML PREMIX IV PRN (05:19)
[2020-09-21] MEDS ORDERED: GLUCAGON 1 MG VIAL IM PRN (05:20)
[2020-09-21] MEDS ORDERED: DEXTROSE 50% 25 GM/50 ML VIAL IV PRN (05:20)
[2020-09-21] MEDS ORDERED: MIDAZOLAM 2 MG/2 ML VIAL IV ONE (05:37)
[2020-09-21] MEDS: methylPREDNISolone SOD SUC 40 MG/1 ML VIAL IV SCH ×2 (05:46→17:40)
[2020-09-21] MEDS: PANTOPRAZOLE 40 MG VIAL IV SCH (05:47)
[2020-09-21] MEDS: MIDAZOLAM 100 MG in SODIUM CHLORIDE 0.9% 80 ML IV PRN (05:53)
[2020-09-21] MEDS: SODIUM CHLORIDE 0.9% 1,000 ML IV SCH ×2 (05:55→17:53)
[2020-09-21] MEDS: INSULIN LISPRO 100 UNIT/ML SUBCUT SCH ×3 (06:11→17:40)
[2020-09-21] MEDS: ALBUTEROL/IPRATROPIUM 3 ML NEB RESP TX SCH ×3 (07:34→18:56)
[2020-09-21] MEDS: ROFLUMILAST 500 MCG TABLET PO SCH (08:20)
[2020-09-21] MEDS: APIXABAN 2.5 MG TABLET PO SCH ×2 (09:00→20:21)
[2020-09-21] MEDS: clonazePAM 0.5 MG TABLET PO SCH (09:48)
[2020-09-21] MEDS ORDERED: SKIN HEALING OINT (AQUAPHOR) 50 GM TUBE TOP PRN (14:37)
[2020-09-21] MEDS: MENTHOL/ZINC OXIDE OINT 71 GM JAR TOP SCH ×2 (17:40→19:00)
[2020-09-21] MEDS: MONTELUKAST 10 MG TABLET PO SCH (20:21)
[2020-09-22] MEDS: ALBUTEROL/IPRATROPIUM 3 ML NEB RESP TX SCH ×4 (00:46→19:32)
[2020-09-22] MEDS: INSULIN LISPRO 100 UNIT/ML SUBCUT SCH ×4 (01:33→17:59)
[2020-09-22] MEDS: cefTRIAXone 1,000 MG in SODIUM CHLORIDE 0.9% 100 ML IV SCH (02:42)
[2020-09-22 04:16] LABS: Hematocrit 25.6 VOL% (35.7-47.0); Hemoglobin 7.2 GM/DL (12.0-16.0); Immature Granulocytes % 0.8 %; Immature Granulocytes Absolute 0.07 #; Lymphocytes # 0.6 10*3/uL (1.4-4.0); Lymphocytes % 7.1 % (21.3-54.2); Mean Corpuscular HGB Conc 28.1 GM/DL (32-36); Mean Corpuscular Volume 88.9 FL (87-102); Mean Platelet Volume 10.3 FL (9.6-12.0); Monocytes % 7.7 % (1.7-12.7); Neutrophils % 84.4 % (38.7-73.9); Platelet Count 121 T/CUMM (130-400); Red Blood Count 2.88 MC/CUMM (3.8-5.5); Red Cell Distribution Width 22.5 % (9.3-17.3); White Blood Count 8.4 T/CUMM (4-12)
[2020-09-22 04:36] LABS: Albumin 2.8 G/DL (3.4-5.0); Bilirubin,Total 0.7 MG/DL (0.2-1.0); Osmolality,Calculated 281.1 MOS/KG (273-304); Potassium 3.9 MMOL/L (3.5-5.1); Total Protein 5.7 G/DL (6.4-8.2)
[2020-09-22 04:49] LABS: ABG Base Excess 10.2 MMOL/L (-2.5-2.5); ABG HCO3 32.4 MMOL/L (20-26); ABG Oxygen Saturation 99.1 % (95-100); ABG PCO2 33.2 MM HG (35-48); ABG PO2 155.7 MM HG (80-95); ABG TCO2 33.4 MMOL/L (23-27); Allen Test Positive; Pt O2 Delivery Device Ventilator
[2020-09-22 04:51] LABS: ABG PH 7.607 (7.35-7.45)
[2020-09-22] MEDS: methylPREDNISolone SOD SUC 40 MG/1 ML VIAL IV SCH ×2 (07:02→17:51)
[2020-09-22] MEDS: PANTOPRAZOLE 40 MG VIAL IV SCH (07:02)
[2020-09-22] MEDS: SODIUM CHLORIDE 0.9% 1,000 ML IV SCH ×2 (09:39→22:19)
[2020-09-22] MEDS: MENTHOL/ZINC OXIDE OINT 71 GM JAR TOP SCH ×2 (09:39→21:02)
[2020-09-22] MEDS: APIXABAN 2.5 MG TABLET PO SCH ×2 (09:39→21:02)
[2020-09-22] MEDS: ROFLUMILAST 500 MCG TABLET PO SCH (09:39)
[2020-09-22] MEDS: clonazePAM 0.5 MG TABLET PO SCH (09:40)
[2020-09-22] MEDS ORDERED: SODIUM CHLORIDE 0.9% 500 ML IV ONE ×3 (10:00→22:13)
[2020-09-22] MEDS: MIDAZOLAM 100 MG in SODIUM CHLORIDE 0.9% 80 ML IV PRN (15:20)
[2020-09-22] MEDS: MONTELUKAST 10 MG TABLET PO SCH (21:02)
[2020-09-23] MEDS: INSULIN LISPRO 100 UNIT/ML SUBCUT SCH ×4 (00:24→18:22)
[2020-09-23] MEDS: cefTRIAXone 1,000 MG in SODIUM CHLORIDE 0.9% 100 ML IV SCH (02:24)
[2020-09-23] MEDS: ALBUTEROL/IPRATROPIUM 3 ML NEB RESP TX SCH ×4 (02:28→19:54)
[2020-09-23 03:29] LABS: ABG Base Excess 6.7 MMOL/L (-2.5-2.5); ABG HCO3 31.5 MMOL/L (20-26); ABG Oxygen Saturation 97.3 % (95-100); ABG PCO2 46.4 MM HG (35-48); ABG PH 7.449 (7.35-7.45); ABG TCO2 32.9 MMOL/L (23-27)
[2020-09-23 04:17] LABS: Calcium 8.9 MG/DL (8.5-10.1); Potassium 4.4 MMOL/L (3.5-5.1)
[2020-09-23 04:41] LABS: Basophils % 0.1 % (0.0-0.8); Eosinophils % 0.1 % (0.00-10.9); Hematocrit 27.9 VOL% (35.7-47.0); Hemoglobin 7.9 GM/DL (12.0-16.0); Immature Granulocytes % 0.7 %; Immature Granulocytes Absolute 0.07 #; Lymphocytes # 0.2 10*3/uL (1.4-4.0); Lymphocytes % 2.3 % (21.3-54.2); Mean Corpuscular HGB Conc 28.3 GM/DL (32-36); Mean Corpuscular Volume 90.3 FL (87-102); Mean Platelet Volume 10.2 FL (9.6-12.0); Monocytes % 2.5 % (1.7-12.7); NRBC # 0.04 10*3/uL; Neutrophils % 94.3 % (38.7-73.9); Platelet Count 129 T/CUMM (130-400); Red Blood Count 3.09 MC/CUMM (3.8-5.5); White Blood Count 10.2 T/CUMM (4-12)
[2020-09-23 05:06] LABS: Hypochromasia 1+; Lymphocytes 1 % (20-55); Microcytosis 2+; Ovalocytes Slight; Platelet Estimate Adequate; Segmented Neutrophils 98 % (50-85); Total Cells Counted 100
[2020-09-23] MEDS: PANTOPRAZOLE 40 MG VIAL IV SCH (06:16)
[2020-09-23] MEDS: SODIUM CHLORIDE 0.9% 1,000 ML IV SCH ×4 (06:16→17:28)
[2020-09-23] MEDS: methylPREDNISolone SOD SUC 40 MG/1 ML VIAL IV SCH ×2 (06:17→17:27)
[2020-09-23] MEDS: MENTHOL/ZINC OXIDE OINT 71 GM JAR TOP SCH ×2 (08:10→21:55)
[2020-09-23] MEDS: APIXABAN 2.5 MG TABLET PO SCH ×2 (08:10→21:41)
[2020-09-23] MEDS: ROFLUMILAST 500 MCG TABLET PO SCH (08:10)
[2020-09-23] MEDS: clonazePAM 0.5 MG TABLET PO SCH (08:10)
[2020-09-23] MEDS ORDERED: SODIUM CHLORIDE 0.9% 500 ML IV ONE (08:38)
[2020-09-23] MEDS: MONTELUKAST 10 MG TABLET PO SCH (21:41)
[2020-09-24] MEDS: ALBUTEROL/IPRATROPIUM 3 ML NEB RESP TX SCH ×4 (00:48→19:28)
[2020-09-24] MEDS: INSULIN LISPRO 100 UNIT/ML SUBCUT SCH ×4 (01:08→17:43)
[2020-09-24] MEDS: SODIUM CHLORIDE 0.9% 1,000 ML IV SCH (02:25)
[2020-09-24 03:22] LABS: ABG Base Excess 4.2 MMOL/L (-2.5-2.5); ABG HCO3 28.2 MMOL/L (20-26); ABG PCO2 49.7 MM HG (35-48); ABG PH 7.386 (7.35-7.45); ABG PO2 88.3 MM HG (80-95); ABG TCO2 28.1 MMOL/L (23-27); Allen Test Positive; Pt O2 Delivery Device Ventilator
[2020-09-24] MEDS: MIDAZOLAM 100 MG in SODIUM CHLORIDE 0.9% 80 ML IV PRN (05:26)
[2020-09-24] MEDS: PANTOPRAZOLE 40 MG VIAL IV SCH (05:35)
[2020-09-24] MEDS: methylPREDNISolone SOD SUC 40 MG/1 ML VIAL IV SCH ×2 (05:39→17:17)
[2020-09-24] MEDS: cefTRIAXone 1,000 MG in SODIUM CHLORIDE 0.9% 100 ML IV SCH (05:43)
[2020-09-24 06:25] LABS: Calcium 8.2 MG/DL (8.5-10.1); Osmolality,Calculated 308.4 MOS/KG (273-304); Potassium 4.8 MMOL/L (3.5-5.1)
[2020-09-24 06:30] LABS: Basophils % 0.1 % (0.0-0.8); Hematocrit 27.1 VOL% (35.7-47.0); Hemoglobin 7.3 GM/DL (12.0-16.0); Immature Granulocytes % 1.1 %; Immature Granulocytes Absolute 0.13 #; Lymphocytes # 0.3 10*3/uL (1.4-4.0); Lymphocytes % 2.5 % (21.3-54.2); Mean Corpuscular HGB Conc 26.9 GM/DL (32-36); Mean Corpuscular Volume 92.8 FL (87-102); Monocytes % 4.9 % (1.7-12.7); NRBC # 0.32 10*3/uL; Neutrophils % 91.4 % (38.7-73.9); Platelet Count 182 T/CUMM (130-400); Red Blood Count 2.92 MC/CUMM (3.8-5.5); Red Cell Distribution Width 21.1 % (9.3-17.3); White Blood Count 11.9 T/CUMM (4-12)
[2020-09-24 06:39] LABS: Band Neutrophils 2 % (0-10); Hypochromasia 1+; Lymphocytes 2 % (20-55); Microcytosis 2+; Nucleated Red Blood Cells 8 (0-5); Promyelocytes 1 %; Segmented Neutrophils 89 % (50-85); Total Cells Counted 100
[2020-09-24 06:40] LABS: Ovalocytes Slight; Platelet Estimate Adequate; Polychromasia Slight; Target Cells Slight
[2020-09-24] MEDS: ROFLUMILAST 500 MCG TABLET PO SCH (08:00)
[2020-09-24] MEDS: clonazePAM 0.5 MG TABLET PO SCH (08:00)
[2020-09-24] MEDS: APIXABAN 2.5 MG TABLET PO SCH ×2 (08:00→20:14)
[2020-09-24] MEDS: MENTHOL/ZINC OXIDE OINT 71 GM JAR TOP SCH ×2 (08:00→20:14)
[2020-09-24] MEDS ORDERED: FUROSEMIDE 40 MG/4 ML VIAL IV ONE (08:06)
[2020-09-24 12:37] LABS: ABG Base Excess 3.2 MMOL/L (-2.5-2.5); ABG HCO3 27.2 MMOL/L (20-26); ABG Oxygen Saturation 90.5 % (95-100); ABG PCO2 64.3 MM HG (35-48); ABG PO2 68.5 MM HG (80-95); ABG TCO2 29.3 MMOL/L (23-27); Allen Test Positive; Pt O2 Delivery Device Ventilator
[2020-09-24] MEDS ORDERED: METOPROLOL TARTRATE 5 MG/5 ML VIAL IV ONE (15:44)
[2020-09-24] MEDS: MONTELUKAST 10 MG TABLET PO SCH (20:14)
[2020-09-25] MEDS: ALBUTEROL/IPRATROPIUM 3 ML NEB RESP TX SCH ×4 (00:04→19:30)
[2020-09-25] MEDS: INSULIN LISPRO 100 UNIT/ML SUBCUT SCH ×4 (01:07→18:14)
[2020-09-25] MEDS: cefTRIAXone 1,000 MG in SODIUM CHLORIDE 0.9% 100 ML IV SCH (01:46)
[2020-09-25 04:58] LABS: ABG Base Excess 5.9 MMOL/L (-2.5-2.5); ABG HCO3 29.9 MMOL/L (20-26); ABG Oxygen Saturation 98.6 % (95-100); ABG PCO2 40.8 MM HG (35-48); ABG PH 7.483 (7.35-7.45); ABG PO2 112.6 MM HG (80-95); ABG TCO2 31.2 MMOL/L (23-27); Allen Test Positive; Pt O2 Delivery Device Ventilator
[2020-09-25] MEDS: PANTOPRAZOLE 40 MG VIAL IV SCH (05:34)
[2020-09-25] MEDS: methylPREDNISolone SOD SUC 40 MG/1 ML VIAL IV SCH ×2 (05:35→16:46)
[2020-09-25 05:42] LABS: Calcium 8.3 MG/DL (8.5-10.1); Osmolality,Calculated 314.1 MOS/KG (273-304)
[2020-09-25 06:20] LABS: Basophils % 0.1 % (0.0-0.8); Hematocrit 27.4 VOL% (35.7-47.0); Hemoglobin 7.5 GM/DL (12.0-16.0); Immature Granulocytes % 0.8 %; Immature Granulocytes Absolute 0.08 #; Lymphocytes # 0.3 10*3/uL (1.4-4.0); Lymphocytes % 2.8 % (21.3-54.2); Mean Corpuscular HGB Conc 27.4 GM/DL (32-36); Mean Platelet Volume 10.8 FL (9.6-12.0); Monocytes % 2.8 % (1.7-12.7); NRBC # 0.21 10*3/uL; Neutrophils % 93.5 % (38.7-73.9); Platelet Count 206 T/CUMM (130-400); Red Blood Count 3.01 MC/CUMM (3.8-5.5)
[2020-09-25 06:41] LABS: Anisocytosis 2+; Band Neutrophils 7 % (0-10); Nucleated Red Blood Cells 3 (0-5); Platelet Estimate Normal; Segmented Neutrophils 91 % (50-85); Total Cells Counted 100
[2020-09-25 06:42] LABS: Basophilic Stippling Slight; Ovalocytes Few; Polychromasia Slight; Tear Drop Cells Few
[2020-09-25] MEDS: MENTHOL/ZINC OXIDE OINT 71 GM JAR TOP SCH ×2 (08:28→21:09)
[2020-09-25] MEDS: clonazePAM 0.5 MG TABLET PO SCH (08:29)
[2020-09-25] MEDS: ROFLUMILAST 500 MCG TABLET PO SCH (08:29)
[2020-09-25] MEDS: APIXABAN 2.5 MG TABLET PO SCH ×2 (08:29→21:02)
[2020-09-25] MEDS: DEXMEDETOMIDINE 200 MCG in SODIUM CHLORIDE 0.9% 48 ML IV PRN ×2 (10:37→16:40)
[2020-09-25] MEDS: MIDAZOLAM 100 MG in SODIUM CHLORIDE 0.9% 80 ML IV PRN (13:41)
[2020-09-25] MEDS: MONTELUKAST 10 MG TABLET PO SCH (21:02)
[2020-09-26] MEDS: ALBUTEROL/IPRATROPIUM 3 ML NEB RESP TX SCH ×4 (00:19→19:04)
[2020-09-26] MEDS: INSULIN LISPRO 100 UNIT/ML SUBCUT SCH ×5 (01:03→23:37)
[2020-09-26] MEDS: cefTRIAXone 1,000 MG in SODIUM CHLORIDE 0.9% 100 ML IV SCH (01:43)
[2020-09-26] MEDS: DEXMEDETOMIDINE 200 MCG in SODIUM CHLORIDE 0.9% 48 ML IV PRN ×3 (02:04→18:05)
[2020-09-26 04:36] LABS: Allen Test Positive; Pt O2 Delivery Device Ventilator
[2020-09-26 04:40] LABS: ABG Base Excess 5.8 MMOL/L (-2.5-2.5); ABG HCO3 29.3 MMOL/L (20-26); ABG PCO2 37.5 MM HG (35-48); ABG PO2 136.1 MM HG (80-95); ABG TCO2 30.4 MMOL/L (23-27)
[2020-09-26 05:42] LABS: Hemoglobin 6.9 GM/DL (12.0-16.0); Immature Granulocytes % 0.8 %; Immature Granulocytes Absolute 0.04 #; Lymphocytes # 0.2 10*3/uL (1.4-4.0); Lymphocytes % 3.9 % (21.3-54.2); Mean Corpuscular HGB Conc 27.6 GM/DL (32-36); Mean Corpuscular Volume 88.7 FL (87-102); Mean Platelet Volume 10.9 FL (9.6-12.0); Monocytes % 2.7 % (1.7-12.7); NRBC # 0.07 10*3/uL; Neutrophils % 92.6 % (38.7-73.9); Platelet Count 162 T/CUMM (130-400); Red Blood Count 2.82 MC/CUMM (3.8-5.5); Red Cell Distribution Width 20.4 % (9.3-17.3); White Blood Count 4.9 T/CUMM (4-12)
[2020-09-26 06:01] LABS: Anisocytosis 2+; Band Neutrophils 8 % (0-10); Lymphocytes 1 % (20-55); Platelet Estimate Normal; Segmented Neutrophils 90 % (50-85); Smudge Cells Few; Total Cells Counted 100
[2020-09-26 06:02] LABS: Albumin 2.9 G/DL (3.4-5.0); Bilirubin,Total 0.5 MG/DL (0.2-1.0); Calcium 8.1 MG/DL (8.5-10.1); Osmolality,Calculated 317.8 MOS/KG (273-304); Ovalocytes Few; Potassium 4.3 MMOL/L (3.5-5.1); Tear Drop Cells Few; Total Protein 5.4 G/DL (6.4-8.2)
[2020-09-26] MEDS: PANTOPRAZOLE 40 MG VIAL IV SCH (07:00)
[2020-09-26] MEDS: methylPREDNISolone SOD SUC 40 MG/1 ML VIAL IV SCH ×2 (07:00→17:51)
[2020-09-26] MEDS: MENTHOL/ZINC OXIDE OINT 71 GM JAR TOP SCH ×2 (09:16→20:42)
[2020-09-26] MEDS: clonazePAM 0.5 MG TABLET PO SCH (09:16)
[2020-09-26] MEDS: ROFLUMILAST 500 MCG TABLET PO SCH (09:16)
[2020-09-26] MEDS ORDERED: SODIUM CHLORIDE 0.9% 1,000 ML IV PRN (11:36)
[2020-09-26] MEDS: APIXABAN 2.5 MG TABLET PO SCH ×2 (11:48→20:42)
[2020-09-26] MEDS: LINEZOLID INJ 600 MG/300 ML PREMIX IV SCH (17:51)
[2020-09-26] MEDS: METOCLOPRAMIDE 10 MG/2 ML VIAL IV SCH ×2 (17:52→23:37)
[2020-09-26] MEDS: MONTELUKAST 10 MG TABLET PO SCH (20:42)
[2020-09-27] MEDS: DEXMEDETOMIDINE 200 MCG in SODIUM CHLORIDE 0.9% 48 ML IV PRN ×4 (00:28→23:41)
[2020-09-27] MEDS: ALBUTEROL/IPRATROPIUM 3 ML NEB RESP TX SCH ×4 (01:20→19:20)
[2020-09-27] MEDS: LINEZOLID INJ 600 MG/300 ML PREMIX IV SCH ×2 (04:14→17:04)
[2020-09-27 04:45] LABS: ABG Base Excess 4.2 MMOL/L (-2.5-2.5); ABG HCO3 28.2 MMOL/L (20-26); ABG Oxygen Saturation 99.4 % (95-100); ABG PCO2 35.9 MM HG (35-48); ABG PH 7.493 (7.35-7.45); ABG TCO2 25.4 MMOL/L (23-27); Allen Test Positive; Pt O2 Delivery Device Ventilator
[2020-09-27] MEDS: INSULIN LISPRO 100 UNIT/ML SUBCUT SCH ×4 (05:40→23:58)
[2020-09-27] MEDS: PANTOPRAZOLE 40 MG VIAL IV SCH (05:40)
[2020-09-27] MEDS: METOCLOPRAMIDE 10 MG/2 ML VIAL IV SCH ×4 (05:40→23:58)
[2020-09-27] MEDS: methylPREDNISolone SOD SUC 40 MG/1 ML VIAL IV SCH ×2 (05:42→17:04)
[2020-09-27 06:24] LABS: Bilirubin,Total 0.8 MG/DL (0.2-1.0); Calcium 8.3 MG/DL (8.5-10.1); Osmolality,Calculated 311.5 MOS/KG (273-304); Potassium 4.7 MMOL/L (3.5-5.1); Total Protein 5.9 G/DL (6.4-8.2)
[2020-09-27 06:53] LABS: Basophils % 0.1 % (0.0-0.8); Hematocrit 29.4 VOL% (35.7-47.0); Immature Granulocytes % 0.5 %; Immature Granulocytes Absolute 0.05 #; Lymphocytes # 0.2 10*3/uL (1.4-4.0); Lymphocytes % 1.8 % (21.3-54.2); Mean Corpuscular HGB Conc 29.3 GM/DL (32-36); Mean Corpuscular Volume 87.5 FL (87-102); Mean Platelet Volume 10.7 FL (9.6-12.0); Monocytes % 3.9 % (1.7-12.7); NRBC # 0.22 10*3/uL; Neutrophils % 93.7 % (38.7-73.9); Platelet Count 232 T/CUMM (130-400); Red Blood Count 3.36 MC/CUMM (3.8-5.5); Red Cell Distribution Width 19.6 % (9.3-17.3); White Blood Count 10.2 T/CUMM (4-12)
[2020-09-27 06:54] LABS: Hemoglobin 8.6 GM/DL (12.0-16.0)
[2020-09-27 06:57] LABS: Anisocytosis 1+; Band Neutrophils 8 % (0-10); Lymphocytes 1 % (20-55); Nucleated Red Blood Cells 4 (0-5); Platelet Estimate Normal; Segmented Neutrophils 87 % (50-85); Total Cells Counted 100
[2020-09-27 06:58] LABS: Poikilocytosis Slight; Polychromasia Slight
[2020-09-27] MEDS: clonazePAM 0.5 MG TABLET PO SCH (08:17)
[2020-09-27] MEDS: ROFLUMILAST 500 MCG TABLET PO SCH (08:17)
[2020-09-27] MEDS ORDERED: INSULIN GLARGINE 100 UNIT/ML SUBCUT SCH (09:00)
[2020-09-27] MEDS: MENTHOL/ZINC OXIDE OINT 71 GM JAR TOP SCH ×2 (09:12→21:01)
[2020-09-27] MEDS: APIXABAN 2.5 MG TABLET PO SCH (09:26)
[2020-09-27] MEDS: MIDAZOLAM 100 MG in SODIUM CHLORIDE 0.9% 80 ML IV PRN (14:35)
[2020-09-27] MEDS: MONTELUKAST 10 MG TABLET PO SCH (21:01)
[2020-09-28] MEDS: ALBUTEROL/IPRATROPIUM 3 ML NEB RESP TX SCH ×4 (00:19→19:48)
[2020-09-28] MEDS: DEXMEDETOMIDINE 200 MCG in SODIUM CHLORIDE 0.9% 48 ML IV PRN (01:50)
[2020-09-28 03:48] LABS: ABG Oxygen Saturation 98.6 % (95-100); ABG PCO2 41.1 MM HG (35-48); ABG PH 7.446 (7.35-7.45); ABG PO2 97.9 MM HG (80-95); ABG TCO2 26.2 MMOL/L (23-27); Allen Test Positive; Pt O2 Delivery Device Ventilator
[2020-09-28] MEDS: LINEZOLID INJ 600 MG/300 ML PREMIX IV SCH ×2 (04:20→16:34)
[2020-09-28 05:23] LABS: Calcium 8.1 MG/DL (8.5-10.1); Osmolality,Calculated 308.5 MOS/KG (273-304)
[2020-09-28] MEDS: PANTOPRAZOLE 40 MG VIAL IV SCH (05:30)
[2020-09-28] MEDS: methylPREDNISolone SOD SUC 40 MG/1 ML VIAL IV SCH ×2 (05:31→16:35)
[2020-09-28 05:32] LABS: Basophils % 0.1 % (0.0-0.8); Hematocrit 28.6 VOL% (35.7-47.0); Hemoglobin 8.1 GM/DL (12.0-16.0); Immature Granulocytes % 1.1 %; Immature Granulocytes Absolute 0.13 #; Lymphocytes # 0.2 10*3/uL (1.4-4.0); Lymphocytes % 1.6 % (21.3-54.2); Mean Corpuscular HGB Conc 28.3 GM/DL (32-36); Mean Corpuscular Volume 88.3 FL (87-102); Mean Platelet Volume 10.8 FL (9.6-12.0); NRBC # 0.41 10*3/uL; Neutrophils % 92.2 % (38.7-73.9); Platelet Count 241 T/CUMM (130-400); Red Blood Count 3.24 MC/CUMM (3.8-5.5); Red Cell Distribution Width 19.9 % (9.3-17.3); White Blood Count 12.2 T/CUMM (4-12)
[2020-09-28] MEDS: INSULIN LISPRO 100 UNIT/ML SUBCUT SCH ×4 (05:35→23:41)
[2020-09-28 05:42] LABS: Band Neutrophils 1 % (0-10); Lymphocytes 2 % (20-55); Nucleated Red Blood Cells 3 (0-5); Platelet Estimate Adequate; Segmented Neutrophils 93 % (50-85); Total Cells Counted 100
[2020-09-28 05:43] LABS: Hypochromasia 1+; Macrocytosis Slight; Polychromasia Slight
[2020-09-28] MEDS: METOCLOPRAMIDE 10 MG/2 ML VIAL IV SCH ×4 (06:03→23:42)
[2020-09-28] MEDS: ROFLUMILAST 500 MCG TABLET PO SCH (09:21)
[2020-09-28] MEDS: MENTHOL/ZINC OXIDE OINT 71 GM JAR TOP SCH ×2 (09:21→21:03)
[2020-09-28] MEDS: APIXABAN 2.5 MG TABLET PO SCH (09:21)
[2020-09-28] MEDS: clonazePAM 0.5 MG TABLET PO SCH (09:22)
[2020-09-28] MEDS: INSULIN GLARGINE 100 UNIT/ML SUBCUT SCH (09:23)
[2020-09-28] MEDS: MONTELUKAST 10 MG TABLET PO SCH (20:27)
[2020-09-29] MEDS: ALBUTEROL/IPRATROPIUM 3 ML NEB RESP TX SCH ×4 (01:06→19:30)
[2020-09-29 02:58] LABS: ABG Base Excess 3.3 MMOL/L (-2.5-2.5); ABG HCO3 28.7 MMOL/L (20-26); ABG Oxygen Saturation 99.1 % (95-100); ABG PH 7.395 (7.35-7.45); ABG PO2 173.7 MM HG (80-95); ABG TCO2 30.2 MMOL/L (23-27)
[2020-09-29] MEDS: LINEZOLID INJ 600 MG/300 ML PREMIX IV SCH ×2 (04:05→15:39)
[2020-09-29 04:52] LABS: Basophils % 0.1 % (0.0-0.8); Hematocrit 31.5 VOL% (35.7-47.0); Immature Granulocytes % 1.6 %; Immature Granulocytes Absolute 0.23 #; Lymphocytes # 0.4 10*3/uL (1.4-4.0); Lymphocytes % 2.5 % (21.3-54.2); Mean Corpuscular HGB Conc 27.9 GM/DL (32-36); Mean Platelet Volume 10.9 FL (9.6-12.0); Monocytes % 7.4 % (1.7-12.7); Neutrophils % 88.4 % (38.7-73.9); Platelet Count 321 T/CUMM (130-400); Red Blood Count 3.58 MC/CUMM (3.8-5.5); Red Cell Distribution Width 19.9 % (9.3-17.3); White Blood Count 14.4 T/CUMM (4-12)
[2020-09-29 04:53] LABS: Hemoglobin 8.8 GM/DL (12.0-16.0)
[2020-09-29 04:55] LABS: Calcium 8.1 MG/DL (8.5-10.1); Osmolality,Calculated 304.4 MOS/KG (273-304); Potassium 4.6 MMOL/L (3.5-5.1)
[2020-09-29 05:01] LABS: Hypochromasia 1+; Lymphocytes 3 % (20-55); Microcytosis 1+; Nucleated Red Blood Cells 3 (0-5); Platelet Estimate Adequate; Segmented Neutrophils 91 % (50-85); Total Cells Counted 100
[2020-09-29] MEDS: INSULIN LISPRO 100 UNIT/ML SUBCUT SCH ×3 (05:52→17:30)
[2020-09-29] MEDS: methylPREDNISolone SOD SUC 40 MG/1 ML VIAL IV SCH ×2 (06:10→17:13)
[2020-09-29] MEDS: METOCLOPRAMIDE 10 MG/2 ML VIAL IV SCH ×3 (06:10→17:15)
[2020-09-29] MEDS: PANTOPRAZOLE 40 MG VIAL IV SCH (06:10)
[2020-09-29] MEDS: INSULIN GLARGINE 100 UNIT/ML SUBCUT SCH (08:25)
[2020-09-29] MEDS: clonazePAM 0.5 MG TABLET PO SCH (08:25)
[2020-09-29] MEDS: APIXABAN 2.5 MG TABLET PO SCH (08:25)
[2020-09-29] MEDS: ROFLUMILAST 500 MCG TABLET PO SCH (08:25)
[2020-09-29] MEDS: FUROSEMIDE 40 MG/4 ML VIAL IV SCH (09:15)
[2020-09-29] MEDS: MENTHOL/ZINC OXIDE OINT 71 GM JAR TOP SCH ×2 (09:15→20:28)
[2020-09-29] MEDS: MORPHINE 4 MG/1 ML VIAL IV PRN ×2 (17:15→21:42)
[2020-09-29] MEDS: MONTELUKAST 10 MG TABLET PO SCH (20:24)
[2020-09-29] MEDS: ACETAMINOPHEN 325 MG TABLET PO PRN (20:25)
[2020-09-30] MEDS: INSULIN LISPRO 100 UNIT/ML SUBCUT SCH ×5 (00:14→21:24)
[2020-09-30] MEDS: METOCLOPRAMIDE 10 MG/2 ML VIAL IV SCH ×4 (00:15→14:35)
[2020-09-30] MEDS: ALBUTEROL/IPRATROPIUM 3 ML NEB RESP TX SCH ×4 (00:23→20:35)
[2020-09-30] MEDS: LINEZOLID INJ 600 MG/300 ML PREMIX IV SCH ×2 (04:21→17:30)
[2020-09-30] MEDS: ACETAMINOPHEN 325 MG TABLET PO PRN ×3 (04:21→21:14)
[2020-09-30] MEDS: PANTOPRAZOLE 40 MG VIAL IV SCH (05:51)
[2020-09-30] MEDS: methylPREDNISolone SOD SUC 40 MG/1 ML VIAL IV SCH ×2 (05:53→18:17)
[2020-09-30 06:48] LABS: Calcium 7.6 MG/DL (8.5-10.1); Osmolality,Calculated 302.1 MOS/KG (273-304); Potassium 4.5 MMOL/L (3.5-5.1)
[2020-09-30 07:06] LABS: Basophils % 0.1 % (0.0-0.8); Hematocrit 30.4 VOL% (35.7-47.0); Hemoglobin 8.5 GM/DL (12.0-16.0); Immature Granulocytes Absolute 0.25 #; Lymphocytes # 0.3 10*3/uL (1.4-4.0); Lymphocytes % 2.2 % (21.3-54.2); Mean Corpuscular Volume 87.6 FL (87-102); Mean Platelet Volume 11.7 FL (9.6-12.0); Monocytes % 5.9 % (1.7-12.7); NRBC # 0.56 10*3/uL; Neutrophils % 89.8 % (38.7-73.9); Platelet Count 313 T/CUMM (130-400); Red Blood Count 3.47 MC/CUMM (3.8-5.5); Red Cell Distribution Width 19.8 % (9.3-17.3); White Blood Count 12.6 T/CUMM (4-12)
[2020-09-30 07:10] LABS: Hypochromasia 1+; Lymphocytes 4 % (20-55); Microcytosis 1+; Nucleated Red Blood Cells 5 (0-5); Platelet Estimate Adequate; Segmented Neutrophils 90 % (50-85); Total Cells Counted 100
[2020-09-30] MEDS: INSULIN GLARGINE 100 UNIT/ML SUBCUT SCH (09:00)
[2020-09-30] MEDS: ROFLUMILAST 500 MCG TABLET PO SCH (10:00)
[2020-09-30] MEDS: APIXABAN 2.5 MG TABLET PO SCH (10:00)
[2020-09-30] MEDS: FUROSEMIDE 40 MG/4 ML VIAL IV SCH (10:00)
[2020-09-30] MEDS: MENTHOL/ZINC OXIDE OINT 71 GM JAR TOP SCH ×2 (10:00→21:14)
[2020-09-30] MEDS: clonazePAM 0.5 MG TABLET PO SCH ×2 (10:02→13:30)
[2020-09-30] MEDS: MONTELUKAST 10 MG TABLET PO SCH (21:13)
[2020-10-01] MEDS: ALBUTEROL/IPRATROPIUM 3 ML NEB RESP TX SCH ×4 (00:25→19:39)
[2020-10-01] MEDS: LINEZOLID INJ 600 MG/300 ML PREMIX IV SCH (04:11)
[2020-10-01] MEDS: methylPREDNISolone SOD SUC 40 MG/1 ML VIAL IV SCH ×2 (05:18→18:07)
[2020-10-01] MEDS: PANTOPRAZOLE 40 MG VIAL IV SCH (05:19)
[2020-10-01] MEDS: INSULIN LISPRO 100 UNIT/ML SUBCUT SCH ×4 (06:45→20:38)
[2020-10-01 09:12] LABS: Basophils % 0.1 % (0.0-0.8); Hematocrit 29.5 VOL% (35.7-47.0); Hemoglobin 8.5 GM/DL (12.0-16.0); Immature Granulocytes % 0.9 %; Immature Granulocytes Absolute 0.11 #; Lymphocytes # 0.2 10*3/uL (1.4-4.0); Lymphocytes % 1.5 % (21.3-54.2); Mean Corpuscular HGB Conc 28.8 GM/DL (32-36); Mean Corpuscular Volume 84.8 FL (87-102); Mean Platelet Volume 10.8 FL (9.6-12.0); Monocytes % 3.2 % (1.7-12.7); Neutrophils % 94.3 % (38.7-73.9); Platelet Count 269 T/CUMM (130-400); Red Blood Count 3.48 MC/CUMM (3.8-5.5); White Blood Count 12.5 T/CUMM (4-12)
[2020-10-01 09:32] LABS: Hypochromasia 1+; Lymphocytes 2 % (20-55); Microcytosis 1+; Nucleated Red Blood Cells 3 (0-5); Platelet Estimate Adequate; Segmented Neutrophils 94 % (50-85); Total Cells Counted 100
[2020-10-01 09:37] LABS: Osmolality,Calculated 291.2 MOS/KG (273-304); Potassium 3.9 MMOL/L (3.5-5.1)
[2020-10-01] MEDS: MENTHOL/ZINC OXIDE OINT 71 GM JAR TOP SCH ×2 (10:28→20:38)
[2020-10-01] MEDS: ROFLUMILAST 500 MCG TABLET PO SCH (10:29)
[2020-10-01] MEDS: clonazePAM 0.5 MG TABLET PO SCH (10:29)
[2020-10-01] MEDS: APIXABAN 2.5 MG TABLET PO SCH (10:30)
[2020-10-01] MEDS: INSULIN GLARGINE 100 UNIT/ML SUBCUT SCH (10:31)
[2020-10-01] MEDS: PANTOPRAZOLE 40 MG TABLET PO SCH (10:32)
[2020-10-01] MEDS: ACETAMINOPHEN 325 MG TABLET PO PRN (10:35)
[2020-10-01] MEDS: FUROSEMIDE 80 MG TABLET PO SCH (10:36)
[2020-10-01] MEDS: LINEZOLID 600 MG TABLET PO SCH (20:38)
[2020-10-01] MEDS: MONTELUKAST 10 MG TABLET PO SCH (20:38)
[2020-10-01] MEDS: CALCIUM CARBONATE CHEW 500 MG TABLET PO PRN (23:06)
[2020-10-02] MEDS: ALBUTEROL/IPRATROPIUM 3 ML NEB RESP TX SCH ×4 (00:32→19:03)
[2020-10-02] MEDS: methylPREDNISolone SOD SUC 40 MG/1 ML VIAL IV SCH ×3 (05:35→18:00)
[2020-10-02 06:01] LABS: Calcium 8.5 MG/DL (8.5-10.1)
[2020-10-02 06:44] LABS: Basophils % 0.2 % (0.0-0.8); Hematocrit 32.5 VOL% (35.7-47.0); Hemoglobin 9.3 GM/DL (12.0-16.0); Immature Granulocytes % 1.2 %; Immature Granulocytes Absolute 0.18 #; Lymphocytes # 0.5 10*3/uL (1.4-4.0); Lymphocytes % 3.4 % (21.3-54.2); Mean Corpuscular HGB Conc 28.6 GM/DL (32-36); Mean Corpuscular Volume 85.3 FL (87-102); Mean Platelet Volume 10.7 FL (9.6-12.0); NRBC # 0.18 10*3/uL; Neutrophils % 90.2 % (38.7-73.9); Platelet Count 288 T/CUMM (130-400); Red Blood Count 3.81 MC/CUMM (3.8-5.5); Red Cell Distribution Width 20.4 % (9.3-17.3); White Blood Count 15.6 T/CUMM (4-12)
[2020-10-02 06:58] LABS: Anisocytosis 1+; Hypochromasia 1+; Lymphocytes 5 % (20-55); Microcytosis 1+; Nucleated Red Blood Cells 1 (0-5); Polychromasia Slight; Segmented Neutrophils 91 % (50-85); Total Cells Counted 100
[2020-10-02 06:59] LABS: Platelet Estimate Normal
[2020-10-02] MEDS: INSULIN LISPRO 100 UNIT/ML SUBCUT SCH ×4 (08:05→20:36)
[2020-10-02] MEDS: PANTOPRAZOLE 40 MG TABLET PO SCH (09:33)
[2020-10-02] MEDS: ROFLUMILAST 500 MCG TABLET PO SCH (09:33)
[2020-10-02] MEDS: clonazePAM 0.5 MG TABLET PO SCH (09:33)
[2020-10-02] MEDS: APIXABAN 2.5 MG TABLET PO SCH (09:33)
[2020-10-02] MEDS: MENTHOL/ZINC OXIDE OINT 71 GM JAR TOP SCH ×2 (09:34→20:36)
[2020-10-02] MEDS: FUROSEMIDE 80 MG TABLET PO SCH (09:34)
[2020-10-02] MEDS: LINEZOLID 600 MG TABLET PO SCH ×2 (09:34→20:37)
[2020-10-02] MEDS: INSULIN GLARGINE 100 UNIT/ML SUBCUT SCH (09:35)
[2020-10-02] MEDS: ONDANSETRON 4 MG/2 ML VIAL IV PRN (15:44)
[2020-10-02] MEDS: MONTELUKAST 10 MG TABLET PO SCH (20:37)
[2020-10-03] MEDS: ALBUTEROL/IPRATROPIUM 3 ML NEB RESP TX SCH ×4 (00:16→20:20)
[2020-10-03 05:56] LABS: Albumin 3.4 G/DL (3.4-5.0); Bilirubin,Total 2.1 MG/DL (0.2-1.0); Calcium 8.2 MG/DL (8.5-10.1); Osmolality,Calculated 296.1 MOS/KG (273-304); Potassium 4.3 MMOL/L (3.5-5.1)
[2020-10-03 06:02] LABS: Basophils % 0.1 % (0.0-0.8); Hematocrit 33.8 VOL% (35.7-47.0); Immature Granulocytes % 1.3 %; Lymphocytes # 0.2 10*3/uL (1.4-4.0); Lymphocytes % 1.3 % (21.3-54.2); Mean Corpuscular HGB Conc 28.1 GM/DL (32-36); Mean Corpuscular Volume 86.9 FL (87-102); Mean Platelet Volume 11.1 FL (9.6-12.0); Monocytes % 1.2 % (1.7-12.7); NRBC # 0.09 10*3/uL; Neutrophils % 96.1 % (38.7-73.9); Platelet Count 265 T/CUMM (130-400); Red Blood Count 3.89 MC/CUMM (3.8-5.5); Red Cell Distribution Width 20.5 % (9.3-17.3); White Blood Count 15.8 T/CUMM (4-12)
[2020-10-03 06:13] LABS: Hemoglobin 9.5 GM/DL (12.0-16.0)
[2020-10-03] MEDS: methylPREDNISolone SOD SUC 40 MG/1 ML VIAL IV SCH ×2 (06:18→17:37)
[2020-10-03 06:21] LABS: Lymphocytes 1 % (20-55); Nucleated Red Blood Cells 1 (0-5); Platelet Estimate Normal; Segmented Neutrophils 97 % (50-85); Total Cells Counted 100
[2020-10-03] MEDS: INSULIN LISPRO 100 UNIT/ML SUBCUT SCH ×4 (09:55→21:25)
[2020-10-03] MEDS: MENTHOL/ZINC OXIDE OINT 71 GM JAR TOP SCH ×2 (09:55→21:29)
[2020-10-03] MEDS: ROFLUMILAST 500 MCG TABLET PO SCH (09:56)
[2020-10-03] MEDS: APIXABAN 2.5 MG TABLET PO SCH (09:56)
[2020-10-03] MEDS: FUROSEMIDE 80 MG TABLET PO SCH (09:57)
[2020-10-03] MEDS: clonazePAM 0.5 MG TABLET PO SCH (09:57)
[2020-10-03] MEDS: INSULIN GLARGINE 100 UNIT/ML SUBCUT SCH (09:57)
[2020-10-03] MEDS: LINEZOLID 600 MG TABLET PO SCH ×2 (09:58→21:26)
[2020-10-03] MEDS: PANTOPRAZOLE 40 MG TABLET PO SCH (09:58)
[2020-10-03] MEDS: MORPHINE 4 MG/1 ML VIAL IV PRN (11:33)
[2020-10-03] MEDS: DILTIAZEM 60 MG TABLET PO SCH ×2 (16:34→21:23)
[2020-10-03 16:39] LABS: CKMB % 7.7 %
[2020-10-03] MEDS: MONTELUKAST 10 MG TABLET PO SCH (21:23)
[2020-10-03] MEDS: METOPROLOL TARTRATE 25 MG TABLET PO SCH (21:23)
[2020-10-03 22:57] LABS: CKMB % 11.2 %
[2020-10-03 23:02] LABS: High Sensitive Troponin I* 75.4 ng/L (0-54)
[2020-10-04] MEDS: ALBUTEROL/IPRATROPIUM 3 ML NEB RESP TX SCH ×4 (02:20→19:03)
[2020-10-04] MEDS: methylPREDNISolone SOD SUC 40 MG/1 ML VIAL IV SCH ×2 (06:21→17:42)
[2020-10-04 07:00] LABS: High Sensitive Troponin I* 67.9 ng/L (0-54)
[2020-10-04 07:01] LABS: Albumin 3.3 G/DL (3.4-5.0); Calcium 8.1 MG/DL (8.5-10.1); Osmolality,Calculated 293.2 MOS/KG (273-304); Potassium 4.1 MMOL/L (3.5-5.1); Total Protein 5.6 G/DL (6.4-8.2)
[2020-10-04 07:27] LABS: Basophils % 0.1 % (0.0-0.8); Hematocrit 29.5 VOL% (35.7-47.0); Immature Granulocytes % 0.7 %; Lymphocytes # 0.2 10*3/uL (1.4-4.0); Lymphocytes % 1.4 % (21.3-54.2); Mean Corpuscular HGB Conc 29.5 GM/DL (32-36); Mean Corpuscular Volume 85.5 FL (87-102); Mean Platelet Volume 10.8 FL (9.6-12.0); Monocytes % 2.9 % (1.7-12.7); NRBC # 0.09 10*3/uL; Neutrophils % 94.9 % (38.7-73.9); Red Blood Count 3.45 MC/CUMM (3.8-5.5); Red Cell Distribution Width 19.6 % (9.3-17.3); White Blood Count 13.6 T/CUMM (4-12)
[2020-10-04 07:37] LABS: Hemoglobin 8.7 GM/DL (12.0-16.0); Platelet Count 171 T/CUMM (130-400)
[2020-10-04 07:52] LABS: Hypochromasia 1+; Microcytosis 1+; Platelet Estimate Adequate; Segmented Neutrophils 98 % (50-85); Total Cells Counted 100
[2020-10-04] MEDS: PANTOPRAZOLE 40 MG TABLET PO SCH (08:58)
[2020-10-04] MEDS: INSULIN LISPRO 100 UNIT/ML SUBCUT SCH ×4 (08:58→21:44)
[2020-10-04] MEDS: INSULIN GLARGINE 100 UNIT/ML SUBCUT SCH (08:58)
[2020-10-04] MEDS: ROFLUMILAST 500 MCG TABLET PO SCH (08:58)
[2020-10-04] MEDS: METOPROLOL TARTRATE 25 MG TABLET PO SCH ×2 (08:59→09:49)
[2020-10-04] MEDS: APIXABAN 2.5 MG TABLET PO SCH ×2 (08:59→21:44)
[2020-10-04] MEDS: FUROSEMIDE 80 MG TABLET PO SCH (08:59)
[2020-10-04] MEDS: DILTIAZEM 60 MG TABLET PO SCH ×2 (08:59→09:48)
[2020-10-04] MEDS: MENTHOL/ZINC OXIDE OINT 71 GM JAR TOP SCH ×2 (08:59→21:44)
[2020-10-04] MEDS: LINEZOLID 600 MG TABLET PO SCH ×2 (08:59→21:44)
[2020-10-04] MEDS: clonazePAM 0.5 MG TABLET PO SCH (08:59)
[2020-10-04] MEDS: ASCORBIC ACID 500 MG TABLET PO SCH ×2 (12:44→21:44)
[2020-10-04] MEDS: DILTIAZEM CD 180 MG CAPSULE PO SCH (12:44)
[2020-10-04] MEDS: MORPHINE 4 MG/1 ML VIAL IV PRN (12:54)
[2020-10-04] MEDS: ACETAMINOPHEN 325 MG TABLET PO PRN (13:00)
[2020-10-04 15:17] LABS: Basophils % 0.1 % (0.0-0.8); Hematocrit 28.5 VOL% (35.7-47.0); Hemoglobin 8.4 GM/DL (12.0-16.0); Immature Granulocytes % 0.9 %; Immature Granulocytes Absolute 0.13 #; Lymphocytes # 0.1 10*3/uL (1.4-4.0); Lymphocytes % 0.8 % (21.3-54.2); Mean Corpuscular HGB Conc 29.5 GM/DL (32-36); Mean Corpuscular Volume 85.6 FL (87-102); Monocytes % 2.3 % (1.7-12.7); NRBC # 0.11 10*3/uL; Neutrophils % 95.9 % (38.7-73.9); Platelet Count 151 T/CUMM (130-400); Red Blood Count 3.33 MC/CUMM (3.8-5.5); Red Cell Distribution Width 19.9 % (9.3-17.3); White Blood Count 14.4 T/CUMM (4-12)
[2020-10-04 15:32] LABS: Band Neutrophils 1 % (0-10); Lymphocytes 2 % (20-55); Segmented Neutrophils 94 % (50-85); Total Cells Counted 100
[2020-10-04 15:33] LABS: Anisocytosis 1+; Hypochromasia 1+; Macrocytosis 1+; Microcytosis 2+; Platelet Estimate Adequate; Polychromasia 2+
[2020-10-04 15:34] LABS: Poikilocytosis Slight; Schistocytes Slight
[2020-10-04] MEDS: MONTELUKAST 10 MG TABLET PO SCH (21:44)
[2020-10-05] MEDS: ALBUTEROL/IPRATROPIUM 3 ML NEB RESP TX SCH ×4 (01:19→19:45)
[2020-10-05] MEDS: ONDANSETRON 4 MG/2 ML VIAL IV PRN (01:50)
[2020-10-05] MEDS: ACETAMINOPHEN 325 MG TABLET PO PRN ×2 (01:53→09:35)
[2020-10-05 05:49] LABS: Basophils % 0.1 % (0.0-0.8); Hematocrit 27.5 VOL% (35.7-47.0); Hemoglobin 8.2 GM/DL (12.0-16.0); Immature Granulocytes % 1.1 %; Immature Granulocytes Absolute 0.17 #; Lymphocytes # 0.1 10*3/uL (1.4-4.0); Lymphocytes % 0.9 % (21.3-54.2); Mean Corpuscular HGB Conc 29.8 GM/DL (32-36); Mean Corpuscular Volume 85.4 FL (87-102); Mean Platelet Volume 11.7 FL (9.6-12.0); Monocytes % 2.2 % (1.7-12.7); NRBC # 0.06 10*3/uL; Neutrophils % 95.7 % (38.7-73.9); Platelet Count 118 T/CUMM (130-400); Red Blood Count 3.22 MC/CUMM (3.8-5.5); Red Cell Distribution Width 19.9 % (9.3-17.3); White Blood Count 15.2 T/CUMM (4-12)
[2020-10-05 06:13] LABS: Band Neutrophils 1 % (0-10); Hypochromasia Slight; Platelet Estimate Normal; Segmented Neutrophils 99 % (50-85); Total Cells Counted 100
[2020-10-05] MEDS: methylPREDNISolone SOD SUC 40 MG/1 ML VIAL IV SCH (06:19)
[2020-10-05 06:36] LABS: Calcium 8.2 MG/DL (8.5-10.1); Osmolality,Calculated 284.4 MOS/KG (273-304); Potassium 3.6 MMOL/L (3.5-5.1)
[2020-10-05] MEDS: INSULIN GLARGINE 100 UNIT/ML SUBCUT SCH (08:25)
[2020-10-05] MEDS: clonazePAM 0.5 MG TABLET PO SCH (08:25)
[2020-10-05] MEDS: MENTHOL/ZINC OXIDE OINT 71 GM JAR TOP SCH ×3 (08:28→21:34)
[2020-10-05] MEDS: PANTOPRAZOLE 40 MG TABLET PO SCH (08:28)
[2020-10-05] MEDS: APIXABAN 2.5 MG TABLET PO SCH ×2 (08:28→21:35)
[2020-10-05] MEDS: LINEZOLID 600 MG TABLET PO SCH ×2 (08:28→21:35)
[2020-10-05] MEDS: ASCORBIC ACID 500 MG TABLET PO SCH ×2 (08:28→21:35)
[2020-10-05] MEDS: INSULIN LISPRO 100 UNIT/ML SUBCUT SCH ×4 (08:29→21:35)
[2020-10-05] MEDS: DILTIAZEM CD 180 MG CAPSULE PO SCH (08:29)
[2020-10-05] MEDS: FUROSEMIDE 80 MG TABLET PO SCH (08:32)
[2020-10-05] MEDS: ROFLUMILAST 500 MCG TABLET PO SCH (08:34)
[2020-10-05] MEDS: MONTELUKAST 10 MG TABLET PO SCH (21:34)
[2020-10-06] MEDS: ALBUTEROL/IPRATROPIUM 3 ML NEB RESP TX SCH ×4 (00:20→20:05)
[2020-10-06] MEDS: INSULIN LISPRO 100 UNIT/ML SUBCUT SCH ×4 (07:40→21:35)
[2020-10-06 07:54] LABS: Calcium 8.2 MG/DL (8.5-10.1); Osmolality,Calculated 285.1 MOS/KG (273-304)
[2020-10-06 08:06] LABS: Basophils % 0.1 % (0.0-0.8); Hematocrit 27.7 VOL% (35.7-47.0); Hemoglobin 8.1 GM/DL (12.0-16.0); Immature Granulocytes % 0.9 %; Immature Granulocytes Absolute 0.18 #; Lymphocytes # 0.3 10*3/uL (1.4-4.0); Lymphocytes % 1.3 % (21.3-54.2); Mean Corpuscular HGB Conc 29.2 GM/DL (32-36); Mean Corpuscular Volume 84.7 FL (87-102); Mean Platelet Volume 11.8 FL (9.6-12.0); Monocytes % 3.5 % (1.7-12.7); NRBC # 0.09 10*3/uL; Neutrophils % 94.2 % (38.7-73.9); Platelet Count 102 T/CUMM (130-400); Red Blood Count 3.27 MC/CUMM (3.8-5.5); Red Cell Distribution Width 19.8 % (9.3-17.3); White Blood Count 20.7 T/CUMM (4-12)
[2020-10-06 08:13] LABS: Lymphocytes 1 % (20-55); Nucleated Red Blood Cells 1 (0-5); Segmented Neutrophils 97 % (50-85); Total Cells Counted 100
[2020-10-06 08:14] LABS: Hypochromasia 1+; Microcytosis 1+; Platelet Estimate Decreased
[2020-10-06] MEDS ORDERED: methylPREDNISolone SOD SUC 40 MG/1 ML VIAL IV SCH (09:00)
[2020-10-06] MEDS: ROFLUMILAST 500 MCG TABLET PO SCH (10:52)
[2020-10-06] MEDS: MENTHOL/ZINC OXIDE OINT 71 GM JAR TOP SCH ×2 (10:52→21:36)
[2020-10-06] MEDS: DILTIAZEM CD 180 MG CAPSULE PO SCH (10:52)
[2020-10-06] MEDS: PANTOPRAZOLE 40 MG TABLET PO SCH (10:53)
[2020-10-06] MEDS: clonazePAM 0.5 MG TABLET PO SCH (10:53)
[2020-10-06] MEDS: APIXABAN 2.5 MG TABLET PO SCH ×2 (10:53→21:34)
[2020-10-06] MEDS: LINEZOLID 600 MG TABLET PO SCH (10:54)
[2020-10-06] MEDS: ASCORBIC ACID 500 MG TABLET PO SCH ×2 (10:54→21:35)
[2020-10-06] MEDS: FUROSEMIDE 80 MG TABLET PO SCH (10:54)
[2020-10-06] MEDS: INSULIN GLARGINE 100 UNIT/ML SUBCUT SCH (12:53)
[2020-10-06] MEDS ORDERED: ALUM/MAG/SIMETH/LIDO VISC 1:1 30 ML BOTTLE PO ONE (17:12)
[2020-10-06] MEDS: MONTELUKAST 10 MG TABLET PO SCH (21:34)
[2020-10-07] MEDS: ALBUTEROL/IPRATROPIUM 3 ML NEB RESP TX SCH ×4 (00:30→19:02)
[2020-10-07 07:48] LABS: Basophils % 0.1 % (0.0-0.8); Hematocrit 24.2 VOL% (35.7-47.0); Immature Granulocytes % 1.1 %; Lymphocytes # 0.3 10*3/uL (1.4-4.0); Lymphocytes % 1.6 % (21.3-54.2); Mean Corpuscular HGB Conc 28.9 GM/DL (32-36); Mean Corpuscular Volume 85.2 FL (87-102); Mean Platelet Volume 11.2 FL (9.6-12.0); Monocytes % 3.7 % (1.7-12.7); NRBC # 0.09 10*3/uL; Neutrophils % 93.5 % (38.7-73.9); Red Blood Count 2.84 MC/CUMM (3.8-5.5); Red Cell Distribution Width 19.9 % (9.3-17.3); White Blood Count 17.4 T/CUMM (4-12)
[2020-10-07 07:52] LABS: Platelet Count 69 T/CUMM (130-400)
[2020-10-07 08:08] LABS: Hypochromasia 2+; Lymphocytes 2 % (20-55); Microcytosis 1+; Platelet Estimate Decreased; Segmented Neutrophils 92 % (50-85); Total Cells Counted 100
[2020-10-07] MEDS ORDERED: SODIUM CHLORIDE 0.9% 1,000 ML IV PRN (10:16)
[2020-10-07] MEDS: INSULIN LISPRO 100 UNIT/ML SUBCUT SCH ×4 (10:16→22:51)
[2020-10-07] MEDS: MENTHOL/ZINC OXIDE OINT 71 GM JAR TOP SCH ×2 (10:17→21:40)
[2020-10-07] MEDS: clonazePAM 0.5 MG TABLET PO SCH (10:18)
[2020-10-07] MEDS: ROFLUMILAST 500 MCG TABLET PO SCH (10:18)
[2020-10-07] MEDS: DILTIAZEM CD 180 MG CAPSULE PO SCH (10:18)
[2020-10-07] MEDS: INSULIN GLARGINE 100 UNIT/ML SUBCUT SCH (10:19)
[2020-10-07] MEDS: predniSONE 20 MG TABLET PO SCH (10:19)
[2020-10-07] MEDS: FUROSEMIDE 80 MG TABLET PO SCH (10:19)
[2020-10-07] MEDS: ASCORBIC ACID 500 MG TABLET PO SCH ×2 (10:20→21:37)
[2020-10-07] MEDS: CALCIUM CARBONATE CHEW 500 MG TABLET PO PRN (10:22)
[2020-10-07] MEDS: PANTOPRAZOLE 40 MG TABLET PO SCH (10:26)
[2020-10-07] MEDS ORDERED: BISMUTH SUBSALICYLATE 30 ML/524 MG 240 ML/BOTTLE PO PRN (11:26)
[2020-10-07 12:33] LABS: Hematocrit 25.8 VOL% (35.7-47.0); Hemoglobin 7.4 GM/DL (12.0-16.0)
[2020-10-07 19:57] LABS: Hematocrit 28.8 VOL% (35.7-47.0); Hemoglobin 8.6 GM/DL (12.0-16.0)
[2020-10-07] MEDS: MONTELUKAST 10 MG TABLET PO SCH (21:37)
[2020-10-08] MEDS: ALBUTEROL/IPRATROPIUM 3 ML NEB RESP TX SCH ×4 (00:33→19:46)
[2020-10-08 05:30] LABS: Basophils % 0.1 % (0.0-0.8); Hematocrit 29.8 VOL% (35.7-47.0); Hemoglobin 8.9 GM/DL (12.0-16.0); Immature Granulocytes % 1.2 %; Immature Granulocytes Absolute 0.35 #; Lymphocytes # 0.4 10*3/uL (1.4-4.0); Lymphocytes % 1.3 % (21.3-54.2); Mean Corpuscular HGB Conc 29.9 GM/DL (32-36); Mean Platelet Volume 11.8 FL (9.6-12.0); Monocytes % 3.8 % (1.7-12.7); NRBC # 0.09 10*3/uL; Neutrophils % 93.6 % (38.7-73.9); Platelet Count 46 T/CUMM (130-400); Red Blood Count 3.31 MC/CUMM (3.8-5.5); Red Cell Distribution Width 18.8 % (9.3-17.3); White Blood Count 28.1 T/CUMM (4-12)
[2020-10-08 05:39] LABS: Calcium 8.1 MG/DL (8.5-10.1); Osmolality,Calculated 288.1 MOS/KG (273-304); Potassium 3.5 MMOL/L (3.5-5.1)
[2020-10-08 05:55] LABS: Band Neutrophils 2 % (0-10); Lymphocytes 3 % (20-55); Segmented Neutrophils 93 % (50-85); Total Cells Counted 100
[2020-10-08 05:56] LABS: Hypochromasia 1+; Microcytosis 1+; Ovalocytes Slight
[2020-10-08 05:57] LABS: Platelet Estimate Decreased
[2020-10-08 07:58] LABS: Hematocrit 34.4 VOL% (35.7-47.0)
[2020-10-08 08:00] LABS: Hemoglobin 10.7 GM/DL (12.0-16.0)
[2020-10-08] MEDS: clonazePAM 0.5 MG TABLET PO SCH (08:03)
[2020-10-08] MEDS: DILTIAZEM CD 180 MG CAPSULE PO SCH (08:03)
[2020-10-08] MEDS: ROFLUMILAST 500 MCG TABLET PO SCH (08:03)
[2020-10-08] MEDS: FUROSEMIDE 80 MG TABLET PO SCH (08:03)
[2020-10-08] MEDS: predniSONE 20 MG TABLET PO SCH (08:04)
[2020-10-08] MEDS: INSULIN LISPRO 100 UNIT/ML SUBCUT SCH ×4 (08:04→20:17)
[2020-10-08] MEDS: INSULIN GLARGINE 100 UNIT/ML SUBCUT SCH (08:04)
[2020-10-08] MEDS: ASCORBIC ACID 500 MG TABLET PO SCH ×2 (08:04→21:44)
[2020-10-08] MEDS: PANTOPRAZOLE 40 MG TABLET PO SCH (08:04)
[2020-10-08] MEDS: MENTHOL/ZINC OXIDE OINT 71 GM JAR TOP SCH ×2 (08:04→21:43)
[2020-10-08] MEDS ORDERED: FUROSEMIDE 40 MG/4 ML VIAL ONE (11:11)
[2020-10-08] MEDS ORDERED: FUROSEMIDE 40 MG/4 ML VIAL IV ONE ×2 (11:14→16:00)
[2020-10-08] MEDS ORDERED: DIGOXIN 0.5 MG/2 ML AMP IV ONE (12:26)
[2020-10-08] MEDS ORDERED: POTASSIUM CHLORIDE 20 MEQ TABLET PO ONE (16:03)
[2020-10-08] MEDS ORDERED: DIGOXIN 0.25 MG TABLET PO SCH (17:00)
[2020-10-08] MEDS ORDERED: DIGOXIN 0.25 MG TABLET PO ONE (17:00)
[2020-10-08] MEDS ORDERED: DIGOXIN 0.5 MG/2 ML AMP IV SCH (17:30)
[2020-10-08] MEDS: FAMOTIDINE 20 MG TABLET PO SCH (21:43)
[2020-10-08] MEDS: MONTELUKAST 10 MG TABLET PO SCH (21:44)
[2020-10-09] MEDS: ALBUTEROL/IPRATROPIUM 3 ML NEB RESP TX SCH ×4 (01:50→19:27)
[2020-10-09 06:27] LABS: Albumin 2.9 G/DL (3.4-5.0); Bilirubin,Total 1.3 MG/DL (0.2-1.0); Calcium 8.2 MG/DL (8.5-10.1); Osmolality,Calculated 293.4 MOS/KG (273-304); Potassium 3.7 MMOL/L (3.5-5.1); Total Protein 5.1 G/DL (6.4-8.2)
[2020-10-09 06:29] LABS: Basophils % 0.1 % (0.0-0.8); Hematocrit 31.6 VOL% (35.7-47.0); Hemoglobin 9.5 GM/DL (12.0-16.0); Immature Granulocytes Absolute 0.25 #; Lymphocytes # 0.6 10*3/uL (1.4-4.0); Lymphocytes % 2.6 % (21.3-54.2); Mean Corpuscular HGB Conc 30.1 GM/DL (32-36); Mean Corpuscular Volume 87.8 FL (87-102); NRBC # 0.08 10*3/uL; Neutrophils % 92.3 % (38.7-73.9); Red Cell Distribution Width 17.9 % (9.3-17.3); White Blood Count 24.2 T/CUMM (4-12)
[2020-10-09 07:27] LABS: Platelet Count 23 T/CUMM (130-400)
[2020-10-09 07:38] LABS: Lymphocytes 1 % (20-55); Segmented Neutrophils 97 % (50-85)
[2020-10-09 07:39] LABS: Platelet Estimate Decreased
[2020-10-09 07:40] LABS: Basophilic Stippling Few; Total Cells Counted 100
[2020-10-09 07:41] LABS: Anisocytosis Slight; Hypochromasia 1+; Macrocytosis Slight; Polychromasia Few
[2020-10-09] MEDS: ASCORBIC ACID 500 MG TABLET PO SCH ×2 (08:18→20:52)
[2020-10-09] MEDS: clonazePAM 0.5 MG TABLET PO SCH (08:18)
[2020-10-09] MEDS: ROFLUMILAST 500 MCG TABLET PO SCH (08:18)
[2020-10-09] MEDS: FAMOTIDINE 20 MG TABLET PO SCH ×2 (08:18→20:52)
[2020-10-09] MEDS: DILTIAZEM CD 240 MG CAPSULE PO SCH (08:18)
[2020-10-09] MEDS: INSULIN LISPRO 100 UNIT/ML SUBCUT SCH ×4 (08:19→21:51)
[2020-10-09] MEDS: INSULIN GLARGINE 100 UNIT/ML SUBCUT SCH (08:19)
[2020-10-09] MEDS: MENTHOL/ZINC OXIDE OINT 71 GM JAR TOP SCH ×2 (08:24→20:52)
[2020-10-09 08:32] LABS: INR 1.1; PT Patient Result 12.4 SECS (10.5-12.0)
[2020-10-09] MEDS ORDERED: MAGNESIUM SULF RIDER 2 GM/50 ML PREMIX IV ONE (08:39)
[2020-10-09] MEDS ORDERED: POTASSIUM CHLORIDE 20 MEQ TABLET PO ONE (08:39)
[2020-10-09] MEDS ORDERED: FUROSEMIDE 40 MG/4 ML VIAL IV SCH (09:00)
[2020-10-09] MEDS ORDERED: DIGOXIN 0.5 MG/2 ML AMP IV SCH (09:00)
[2020-10-09] MEDS ORDERED: predniSONE 20 MG TABLET PO SCH (09:00)
[2020-10-09] MEDS ORDERED: SODIUM CHLORIDE 0.45% 1,000 ML IV SCH (09:00)
[2020-10-09] MEDS ORDERED: SODIUM CHLORIDE 0.9% 1,000 ML IV PRN ×2 (09:07→10:01)
[2020-10-09] MEDS ORDERED: clonazePAM 0.5 MG TABLET PO PRN (12:49)
[2020-10-09] MEDS: ALBUMIN 5% 25 GM/500 ML VIAL IV SCH ×2 (13:35→20:43)
[2020-10-09] MEDS: SPIRONOLACTONE 25 MG TABLET PO SCH ×2 (13:35→20:51)
[2020-10-09] MEDS: FUROSEMIDE 40 MG/4 ML VIAL IV SCH ×2 (14:02→20:43)
[2020-10-09 15:06] VITALS: BP 91/75
[2020-10-09] MEDS: ONDANSETRON 4 MG/2 ML VIAL IV PRN (17:45)
[2020-10-09] MEDS: MONTELUKAST 10 MG TABLET PO SCH (20:52)
[2020-10-09] MEDS ORDERED: PHENYLEPHRINE DRIP 40 MG/250 ML PREMIX IV ONE (21:44)
[2020-10-09] MEDS: PHENYLEPHRINE DRIP 40 MG/250 ML PREMIX IV PRN (21:50)
[2020-10-09 21:56] LABS: ABG Base Excess 12.5 MMOL/L (-2.5-2.5); ABG HCO3 36.3 MMOL/L (20-26); ABG Oxygen Saturation 94.9 % (95-100); ABG PCO2 64.6 MM HG (35-48); ABG PH 7.394 (7.35-7.45); ABG PO2 73.3 MM HG (80-95)
[2020-10-10] MEDS: DOBUTamine 500 MG/250 ML PREMIX IV PRN ×3 (00:07→07:31)
[2020-10-10] MEDS ORDERED: DIGOXIN 0.5 MG/2 ML AMP IV ONE (01:02)
[2020-10-10] MEDS: ALBUTEROL/IPRATROPIUM 3 ML NEB RESP TX SCH ×2 (02:05→07:15)
[2020-10-10] MEDS ORDERED: HYDROCORTISONE 100 MG VIAL IM ONE (02:15)
[2020-10-10] MEDS ORDERED: HYDROCORTISONE 100 MG VIAL IV ONE (02:54)
[2020-10-10] MEDS ORDERED: NOREPINEPHRINE 4 MG/4 ML VIAL IV ONE ×2 (03:02→06:53)
[2020-10-10] MEDS: NOREPINEPHRINE 8 MG in SODIUM CHLORIDE 0.9% 242 ML IV PRN ×3 (03:05→06:58)
[2020-10-10] MEDS ORDERED: VECURONIUM 10 MG VIAL IV ONE (03:09)
[2020-10-10] MEDS ORDERED: ETOMIDATE 20 MG/10 ML VIAL IV ONE (03:09)
[2020-10-10] MEDS: FUROSEMIDE 40 MG/4 ML VIAL IV SCH ×2 (03:29→05:13)
[2020-10-10] MEDS: PHENYLEPHRINE DRIP 40 MG/250 ML PREMIX IV PRN (05:10)
[2020-10-10] MEDS: ALBUMIN 5% 25 GM/500 ML VIAL IV SCH (05:12)
[2020-10-10 06:29] LABS: Basophils % 0.1 % (0.0-0.8); Hematocrit 22.5 VOL% (35.7-47.0); Hemoglobin 6.9 GM/DL (12.0-16.0); Immature Granulocytes % 0.9 %; Immature Granulocytes Absolute 0.16 #; Lymphocytes # 0.3 10*3/uL (1.4-4.0); Lymphocytes % 1.6 % (21.3-54.2); Mean Corpuscular HGB Conc 30.7 GM/DL (32-36); Mean Corpuscular Volume 89.3 FL (87-102); Mean Platelet Volume 11.7 FL (9.6-12.0); Monocytes % 5.1 % (1.7-12.7); Neutrophils % 92.3 % (38.7-73.9); Red Blood Count 2.52 MC/CUMM (3.8-5.5); White Blood Count 17.1 T/CUMM (4-12)
[2020-10-10 06:31] LABS: Platelet Count 21 T/CUMM (130-400)
[2020-10-10 06:45] LABS: Albumin 2.7 G/DL (3.4-5.0); Bilirubin,Total 2.4 MG/DL (0.2-1.0); Calcium 7.6 MG/DL (8.5-10.1); Osmolality,Calculated 294.5 MOS/KG (273-304); Potassium 3.6 MMOL/L (3.5-5.1); Total Protein 4.6 G/DL (6.4-8.2)
[2020-10-10 07:56] LABS: Hypochromasia 1+; Metamyelocytes 1 %; Platelet Estimate Decreased; Segmented Neutrophils 95 % (50-85); Total Cells Counted 100
[2020-10-10] MEDS: MORPHINE 4 MG/1 ML VIAL IV PRN ×8 (08:00→11:10)
[2020-10-10] MEDS ORDERED: LORazepam 2 MG/1 ML VIAL ONE (08:10)
[2020-10-10] MEDS: INSULIN LISPRO 100 UNIT/ML SUBCUT SCH (08:16)
[2020-10-10] MEDS: SPIRONOLACTONE 25 MG TABLET PO SCH (08:32)
[2020-10-10] MEDS: MENTHOL/ZINC OXIDE OINT 71 GM JAR TOP SCH (08:32)
[2020-10-10] MEDS: ASCORBIC ACID 500 MG TABLET PO SCH (08:33)
[2020-10-10] MEDS: DILTIAZEM CD 240 MG CAPSULE PO SCH (08:33)
[2020-10-10] MEDS: FAMOTIDINE 20 MG TABLET PO SCH (08:33)
[2020-10-10] MEDS: ROFLUMILAST 500 MCG TABLET PO SCH (08:33)
[2020-10-10] MEDS: INSULIN GLARGINE 100 UNIT/ML SUBCUT SCH (08:33)
[2020-10-10] MEDS: LORazepam 2 MG/1 ML VIAL IV PRN ×3 (09:18→11:07)
== END 2020-10-10 12:10 | disposition expired | DRG 207 ==
LOC: EDBD → EDUNIT# → N.ED 23:18 → N.EDINP 09-21 03:35 → SUATTDRO 09-21 03:35 → N.CC 09-21 04:39 → N.3E 10-01 16:18 → N.CC 10-09 11:23
PROVIDERS: ADMIT Internal Medicine; ATTEND Internal Medicine